=== PATIENT | female | born 1995 | race Caucasian/White ===

== ENCOUNTER 2019-03-22 22:09 | Emergency (ER) | payer SELFPAY ==
--- NOTE | 2019-03-22 22:46 | ER ---
Nurse's Notes [facility] Name: Mike Hernandez Age: 23 yrs Sex: Female : 1995 Arrival Date: 03/22/2019 Time: 22:12 Bed Waiting Private MD: Diagnosis: Assessment: 03/22 22:32 Reassessment: called but not around. mg2 22:44 Reassessment: called but still no answer. mg2 ED Course: 22:12 Patient arrived in ED. jg7 Administered Medications: No medications were administered Outcome: 22:44 Patient left the ED. mg2 Signatures: Hunter Jacobo RN RN mg2 Ginette Evangelista
== END 2019-03-22 22:44 | disposition left against medical advice (07) ==
LOC: ER 22:09
DX: Z53.21 Procedure and treatment not carried out due to patient leaving prior to being seen by health care provider (principal)

== ENCOUNTER 2021-10-08 19:48 | Emergency (ER) | payer SELFPAY ==
--- NOTE | 2021-10-08 22:03 | RAD REPORT ---
EXAM DESCRIPTION: US - 1St Trimest Single 1St Fetus - 10/08/2021 9:44 pm CLINICAL HISTORY: fall, pelvic pain COMPARISON: No comparisons FINDINGS: Gestational sac identified with mean sac diameter measuring 1.7 cm. This is consistent wit h 6 week 4 day. The uterus measures 8.9 cm. The right ovary measures 2.3 x 1.9 x 2 cm with volume of 4.6 cc. Vascular flow is present in the right ovary. The left ovary was not visualized. IMPRESSION: 1. Gestational sac identified with mean sac diameter consistent with 6 week 4 day with t he LUIS FELIPE of 05/30/2022. No pole or heart tones identified likely due to early dates 2. Right ovarian blood flow identified. The left ovary was not visualized.
--- NOTE | 2021-10-08 22:07 | ER ---
Nurse's Notes [facility] Name: Mike Hernandez Age: 25 yrs Sex: Female : 1995 Arrival Date: 10/08/2021 Time: 20:04 Bed 9 Private MD: Diagnosis: Fall (on) (from) other stairs and steps;Pelvic and perineal pain Presentation: 10/08 20:07 Chief complaint: Patient states: fell down 5-6 stairs at 5pm today. Is 4 weeks [facility] and wants to get checked after the fall. Care prior to arrival: None. Mechanism of Injury: Fall approximately 6 feet. Trauma event details: Injury occurred in the [facility], Injury occurred: at home. Injury occurred: October 08, 2021 Injury occurred at: 17:00. 20:07 Acuity: KENYA 4 [facility] 20:07 Method Of Arrival: Ambulatory [facility] 22:26 Coronavirus screen: Vaccine status: Patient reports being unvaccinated. Ebola Screen: [facility] No symptoms or risks identified at this time. Initial Sepsis Screen: Does the patient meet any 2 criteria? No. Patient's initial sepsis screen is negative. Does the patient have a suspected source of infection? No. Patient's initial sepsis screen is negative. Risk Assessment: Do you want to hurt yourself or someone else? Patient reports no desire to harm self or others. Onset of symptoms was October 08, 2021. Triage Assessment: 20:18 General: See trauma assessment. [facility] MEDICATION COORDINATOR: 20:16 LMP 08/28/2021 [facility] Trauma Activation: Not Applicable Physician: ED Physician; Name: ; Notified At: ; Arrived At: Physician: General Surgeon; Name: ; Notified At: ; Arrived At: Physician: Radiology; Name: ; Notified At: ; Arrived At: Physician: Respiratory; Name: ; Notified At: ; Arrived At: Physician: Lab; Name: ; Notified At: ; Arrived At: Historical: - Allergies: 20:14 ACYCLOVIR AND DERIVATIVES; 3 - Home Meds: 20:14 None [Active]; 3 - PMHx: 20:14 Endometriosis; 3 - Immunization history: Last tetanus immunization: - up to date. - Social history:: Smoking status: Patient denies any tobacco usage or history of. - Social history: Denies using street drugs, tobacco products, alcohol. Screenin:24 Abuse screen: Denies threats or abuse. Denies injuries from another. Nutritional eh3 screening: No deficits noted. Tuberculosis screening: No symptoms or risk factors identified. Fall Risk None identified. Primary Survey: 20:14 NO uncontrolled hemorrhage observed. Breathing/Chest: Spontaneous respiratory effort, eh3 equal unlabored respirations, breath sounds clear bilaterally, regular pattern, symmetrical chest rise and fall. Circulation: No external hemorrhage present. Regular and strong central pulse, skin warm/dry/normal color. Disability Pupils are equal, round, reactive to light and accommodation. Client is alert. 22:26 Exposure/Environment: There is no evidence of uncontrolled external bleeding. No eh3 obvious injuries are noted at this time. Reassessment Breathing: Respiratory effort Spontaneous Unlabored Respiratory pattern Regular. Reassessment Alertness and Airway: Awake and alert. The airway is patent. Circulation: No external hemorrhage noted. Regular and strong central pulse, skin warm/dry/normal color. Assessment: 20:07 General: Appears in no apparent distress. comfortable, Behavior is calm, cooperative, eh3 appropriate for age. Pain: Complains of pain in suprapubic area and right upper quadrant Pain does not radiate. Pain currently is 7 out of 10 on a pain scale. Quality of pain is described as dull, throbbing, Pain began 3 hours ago. Is continuous. Neuro: Level of Consciousness is awake, alert, obeys commands, Oriented to person, place, time, situation. Cardiovascular: Capillary refill < 3 seconds Patient's skin is warm and dry. Respiratory: Airway is patent Respiratory effort is even, unlabored. GI: No signs and/or symptoms were reported involving the gastrointestinal system. : No signs and/or symptoms were reported regarding the genitourinary system. Derm: No signs and/or symptoms reported regarding the dermatologic system. Musculoskeletal: Circulation, motion, and sensation intact. Range of motion: intact in all extremities. Vital Signs: 20:16 BP 121 / 82; Pulse 108; Resp 18; Temp 99.3(O); Pulse Ox 100% on R/A; Weight 79.38 kg; eh3 Height 5 ft. 0 in. (152.40 cm); Pain 7/10; 20:16 Body Mass Index 34.18 (79.38 kg, 152.40 cm) eh3 Cristin Coma Score: 22:25 Eye Response: spontaneous(4). Verbal Response: oriented(5). Motor Response: obeys eh3 commands(6). Total: 15. Trauma Score (Adult): 22:25 Eye Response: spontaneous(1); Verbal Response: oriented(1); Motor Response: obeys eh3 commands(2); Systolic BP: > 89 mm Hg(4); Respiratory Rate: 10 to 29 per min(4); Cristin Score: 15; Trauma Score: 12 ED Course: 20:04 Patient arrived in ED. bp1 20:11 Triage completed. eh3 20:16 Arm band placed on right wrist. eh3 20:17 Roberto Rojo PA is PHCP. [facility] 20:17 Herson Veliz MD is Attending Physician. [facility] 20:20 Orville Jacobson, RN is Primary Nurse. as6 21:46 1st Trimest Single 1st Fetus In Process Unspecified. EDMS 22:24 Patient has correct armband on for positive identification. Bed in low position. Call eh3 light in reach. Side rails up X2. 22:24 No provider procedures requiring assistance completed. Patient did not have IV access eh3 during this emergency room visit. 22:25 Patient maintains SpO2 saturation greater than 95% on room air. eh3 22:27 Thermoregulation: warm blanket given to patient. eh3 Administered Medications: No medications were administered Medication: 22:27 VIS not applicable for this client. eh3 Intake: 22:25 PO: 0ml; Total: 0ml. eh3 Outcome: 22:05 Discharge ordered by . [facility] 22:24 Discharged to home ambulatory. eh3 22:24 Condition: stable 22:24 Discharge instructions given to patient, Instructed on discharge instructions, follow up and referral plans. Demonstrated understanding of instructions, follow-up care. 22:25 Patient's length of stay was not longer than 2 hours. eh3 22:27 Patient left the ED. eh3 Signatures: Dispatcher [employer] EDMS Roberto Rojo PA PA [facility] Rose Caputo bp1 Orville Jacobson, RN RN as6 Malu Lozoya RN RN eh3
--- NOTE | 2021-10-08 22:07 | EDPHYS ---
Physician Documentation [facility] Name: Mike Hernandez Age: 25 yrs Sex: Female : 1995 Arrival Date: 10/08/2021 Time: 20:04 Bed 9 Private MD: ED Physician Herson Veliz HPI: 10/08 20:20 This 25 yrs old Female presents to ER via Ambulatory with complaints of Fall Injury. jmm 20:20 Details of fall: The patient fell from an upright position, while walking. Onset: The jmm symptoms/episode began/occurred acutely, just prior to arrival. Associated injuries: The patient sustained injury to the abdomen. The patient has not experienced similar symptoms in the past. Patient states being approximately 4 weeks . Patient states she slept down approximately 4-6 stairs steps. Denies hitting her head. Denies back pain. Complains of some mild right lower extremity pain as well. Also complains of some pelvic lower abdominal cramping. Denies vaginal bleeding. UI ARCHITECT: 20:16 LMP 08/28/2021 eh3 Historical: - Allergies: 20:14 ACYCLOVIR AND DERIVATIVES; eh3 - Home Meds: 20:14 None [Active]; eh3 - PMHx: 20:14 Endometriosis; eh3 - Immunization history: Last tetanus immunization: - up to date. - Social history:: Smoking status: Patient denies any tobacco usage or history of. - Social history: Denies using street drugs, tobacco products, alcohol. ROS: 20:20 Constitutional: Negative for fever, chills, and weight loss, Cardiovascular: Negative jmm for chest pain, palpitations, and edema, Respiratory: Negative for shortness of breath, cough, wheezing, and pleuritic chest pain. 20:20 Abdomen/GI: Positive for abdominal pain. 20:20 MS/extremity: Positive for pain. 20:20 All other systems are negative. Exam: 20:20 Constitutional: This is a well developed, well nourished patient who is awake, alert, jmm and in no acute distress. Head/Face: atraumatic. Eyes: EOMI, no conjunctival erythema appreciated ENT: Moist Mucus Membranes Neck: Trachea midline, Supple Chest/axilla: Normal chest wall appearance and motion. Cardiovascular: Regular rate and rhythm. No edema appreciated Respiratory: Normal respirations, no respiratory distress appreciated Abdomen/GI: Non distended Back: Normal ROM 20:20 Musculoskeletal/extremity: Full range of motion appreciated to the right lower leg. Right knee. Compartments are soft, full dorsalis pedis pulse, neurovascular intact. No bony tenderness. 20:20 Skin: Mild ecchymosis noted to the right lower leg. 20:20 Neuro: Orientation: is normal, Mentation: is normal, Memory: is normal. 20:20 Psych: Behavior/mood is pleasant, cooperative. Vital Signs: 20:16 BP 121 / 82; Pulse 108; Resp 18; Temp 99.3(O); Pulse Ox 100% on R/A; Weight 79.38 kg; eh3 Height 5 ft. 0 in. (152.40 cm); Pain 7/10; 20:16 Body Mass Index 34.18 (79.38 kg, 152.40 cm) eh3 Elgin Coma Score: 22:25 Eye Response: spontaneous(4). Verbal Response: oriented(5). Motor Response: obeys eh3 commands(6). Total: 15. Trauma Score (Adult): 22:25 Eye Response: spontaneous(1); Verbal Response: oriented(1); Motor Response: obeys eh3 commands(2); Systolic BP: > 89 mm Hg(4); Respiratory Rate: 10 to 29 per min(4); Cristin Score: 15; Trauma Score: 12 MDM: 20:20 Patient medically screened. [facility] 22:05 Data reviewed: vital signs, nurses notes. Counseling: I had a detailed discussion with mitch the patient and/or guardian regarding: the historical points, exam findings, and any diagnostic results supporting the discharge/admit diagnosis, radiology results, the need for outpatient follow up, to return to the emergency department if symptoms worsen or persist or if there are any questions or concerns that arise at home. 10/08 20:33 Order name: 1st Trimest Single 1st Fetus; Complete Time: 22:05 [facility] Administered Medications: No medications were administered Disposition Summary: 10/08/21 22:05 Discharge Ordered Location: Home [facility] Condition: Stable [facility] Diagnosis - Fall (on) (from) other stairs and steps jmm - Pelvic and perineal pain [facility] Followup: [facility] - With: Private Physician - When: 2 - 3 days - Reason: Recheck today's complaints, Continuance of care, Re-evaluation by your physician Discharge Instructions: - Discharge Summary Sheet jmm - Pelvic Pain, Female jmm - First Trimester of mitch Forms: - Medication Reconciliation Form jmm - Thank You Letter jmm - Antibiotic Education jmm - Prescription Opioid Use mitch Signatures: Dispatcher [employer] Herson Mendoza MD MD cha Mickail, Joel, PA PA jmm Hall, Erin, RN RN eh3
[2021-10-08 23:51] VITALS: BP 121/82; TEMP 99.3; O2SAT 100
== END 2021-10-08 22:27 | disposition home or self-care (01) ==
LOC: ER 19:48
DX: O26.891 Other specified pregnancy related conditions, first trimester (principal); Z3A.01 Less than 8 weeks gestation of pregnancy; W10.8XXA Fall (on) (from) other stairs and steps, initial encounter; Z88.8 Allergy status to other drugs, medicaments and biological substances
CPT/HCPCS: 76801

== ENCOUNTER 2022-01-08 11:43 | Emergency (ER) | payer OTHER ==
--- NOTE | 2022-01-08 14:10 | RAD REPORT ---
EXAM DESCRIPTION: US - Extrem Venous W Compress Jorge - 01/08/2022 1:56 pm CLINICAL HISTORY: pain, covid +, , recent travel COMPARISON: No comparisons TECHNIQUE: Real-time sonographic evaluation of the lower extremity deep venous systems was performed using color Doppler, grayscale, and compression. FINDINGS: Bilateral lower extremities. Normal compressibility, flow augmentation, phasic flow and spontaneous flow is identified in both the left and right lower extremity deep venous systems. No intraluminal filling defects seen. IMPRESSION: No DVT in either lower extremity.
--- NOTE | 2022-01-08 14:31 | EDPHYS ---
Physician Documentation [facility] Name: Mike Hernandez Age: 26 yrs Sex: Female : 1995 Arrival Date: 01/08/2022 Time: 11:45 Bed 9 Private MD: ED Physician Emma Manley HPI: 01/08 13:44 This 26 yrs old Female presents to ER via Ambulatory with complaints of Cough - covid+, snw 18 wks preg. 13:44 The patient or guardian reports cough, flu symptoms, low-grade fever, myalgias, snw congestion. Onset: The symptoms/episode began/occurred gradually, 3 day(s) ago, did home covid test - it was positive. Severity of symptoms: At their worst the symptoms were moderate. Associated signs and symptoms: Pertinent positives: rhinorrhea, sore throat, leg pain. The patient has not experienced similar symptoms in the past. seeing Dr. Ness for IUP. Historical: - Allergies: 12:15 ACYCLOVIR AND DERIVATIVES; ll1 - PMHx: 12:15 Endometriosis; ll1 - PSHx: 12:15 Appendectomy; foot SX; ll1 - Immunization history:: Client reports receiving the 2nd dose of the Covid vaccine. - Social history:: Smoking status: Patient denies any tobacco usage or history of. ROS: 13:43 Constitutional: Negative for fever, chills, and weight loss, Eyes: Negative for injury, snw pain, redness, and discharge, ENT: Negative for injury, pain, and discharge, Neck: Negative for injury, pain, and swelling, Cardiovascular: Negative for chest pain, palpitations, and edema. 13:43 Abdomen/GI: Negative for abdominal pain, nausea, vomiting, diarrhea, and constipation, Back: Negative for injury and pain, : Negative for injury, bleeding, discharge, and swelling. 13:43 Skin: Negative for injury, rash, and discoloration, Neuro: Negative for headache, weakness, numbness, tingling, and seizure, Psych: Negative for depression, anxiety, suicide ideation, homicidal ideation, and hallucinations. 13:43 Respiratory: Positive for cough, shortness of breath. 13:43 MS/extremity: Positive for pain, intermittently to left leg. Exam: 13:42 Constitutional: This is a well developed, well nourished patient who is awake, alert, snw and in no acute distress. Head/Face: Normocephalic, atraumatic. Eyes: Pupils equal round and reactive to light, extra-ocular motions intact. Lids and lashes normal. Conjunctiva and sclera are non-icteric and not injected. Cornea within normal limits. Periorbital areas with no swelling, redness, or edema. ENT: Nares patent. No nasal discharge, no septal abnormalities noted. Tympanic membranes are normal and external auditory canals are clear. Oropharynx with no redness, swelling, or masses, exudates, or evidence of obstruction, uvula midline. Mucous membranes moist. Neck: Trachea midline, no thyromegaly or masses palpated, and no cervical lymphadenopathy. Supple, full range of motion without nuchal rigidity, or vertebral point tenderness. No Meningismus. Chest/axilla: Normal chest wall appearance and motion. Nontender with no deformity. No lesions are appreciated. Cardiovascular: Regular rate and rhythm with a normal S1 and S2. No gallops, murmurs, or rubs. Normal PMI, no JVD. No pulse deficits. 13:42 Abdomen/GI: Soft, non-tender, with normal bowel sounds. No distension or tympany. No guarding or rebound. No evidence of tenderness throughout. Back: No spinal tenderness. No costovertebral tenderness. Full range of motion. Skin: Warm, dry with normal turgor. Normal color with no rashes, no lesions, and no evidence of cellulitis. MS/ Extremity: Pulses equal, no cyanosis. Neurovascular intact. Full, normal range of motion. Neuro: Awake and alert, GCS 15, oriented to person, place, time, and situation. Cranial nerves II-XII grossly intact. Motor strength 5/5 in all extremities. Sensory grossly intact. Cerebellar exam normal. Normal gait. Psych: Awake, alert, with orientation to person, place and time. Behavior, mood, and affect are within normal limits. 13:42 Respiratory: the patient does not display signs of respiratory distress, Respirations: normal, Breath sounds: are clear throughout. Vital Signs: 12:16 BP 140 / 81; Pulse 89; Resp 18; Temp 97.1; Pulse Ox 100% ; Weight 81.65 kg; Height 5 ll1 ft. 2 in. (157.48 cm); Pain 7/10; 12:16 Body Mass Index 32.92 (81.65 kg, 157.48 cm) ll1 MDM: 12:55 Patient medically screened. snw 14:32 Data reviewed: vital signs, nurses notes. Data interpreted: Pulse oximetry: on room air snw is 100 %. Interpretation: normal. Counseling: I had a detailed discussion with the patient and/or guardian regarding: the historical points, exam findings, and any diagnostic results supporting the discharge/admit diagnosis, the presence of at least one elevated blood pressure reading (>120/80) during this emergency department visit, radiology results, the need for outpatient follow up, to return to the emergency department if symptoms worsen or persist or if there are any questions or concerns that arise at home. Special discussion: I have referred the patient to see his PCP for further evaluation of high blood pressure. Based on the history and exam findings, there is no indication for further emergent testing or inpatient evaluation. I discussed with the patient/guardian the need to see the OB Gyne specialist for further evaluation of the symptoms. I discussed with the patient/guardian the need to see the primary care provider for further evaluation of the symptoms. 01/08 13:13 Order name: US Extremity Venous W Compression Jorge; Complete Time: 14:13 snw Administered Medications: 14:46 Drug: Aspirin 81 mg Route: PO; iw 15:10 Follow up: Response: No adverse reaction iw 14:46 Drug: Pepcid (famotidine) 20 mg Route: PO; iw 15:10 Follow up: Response: No adverse reaction iw Disposition Summary: 01/08/22 14:31 Discharge Ordered Location: Home snw Condition: Stable snw Diagnosis - SARS-associated coronavirus as the cause of diseases classified elsewhere snw - state, incidental snw Followup: snw - With: Emergency Department - When: As needed - Reason: Worsening of condition Followup: snw - With: Private Physician - When: 2 - 3 days - Reason: Recheck today's complaints, Continuance of care, Re-evaluation by your physician Discharge Instructions: - Discharge Summary Sheet snw - Aspirin and Your Heart snw - COVID-19 snw Forms: - Medication Reconciliation Form snw - Thank You Letter snw - Antibiotic Education snw - Prescription Opioid Use snw Prescriptions: - Pepcid 20 mg Oral Tablet - take 1 tablet by ORAL route once daily; 20 tablet; Refills: 0, Product snw Selection Permitted Signatures: Dispatcher [employer] Melissa Lopez, LITA-C NATURAL RESOURCES MANAGER-Marelyw Leann Lui, RN RN iw Daisha Roman RN RN ll1
--- NOTE | 2022-01-08 14:31 | ER ---
Nurse's Notes [facility] Name: Mike Hernandez Age: 26 yrs Sex: Female : 1995 Arrival Date: 01/08/2022 Time: 11:45 Bed 9 Private MD: Diagnosis: SARS-associated coronavirus as the cause of diseases classified elsewhere; state, incidental Presentation: 01/08 12:16 Chief complaint: Patient states: Thursday morning started having sinus ll1 congestion/pressure, PARRA. At home covid test Positive. 18.5 weeks . G1, P0. Pelvic cramping started late last night, Dr. Ness told her to come get checked. No fevers. Coronavirus screen: Vaccine status: Patient reports receiving the 2nd dose of the covid vaccine. Client denies travel out of the [place] in the last 14 days. congestion, cough unrelated to allergies, fatigue, headache, nausea, Client presents with at least one sign or symptom that may indicate coronavirus-19. Standard/surgical mask placed on the client. Ebola Screen: Patient denies travel to an Ebola-affected area in the 21 days before illness onset. Initial Sepsis Screen: Does the patient meet any 2 criteria? No. Patient's initial sepsis screen is negative. Does the patient have a suspected source of infection? Yes: Productive cough/pneumonia. Risk Assessment: Do you want to hurt yourself or someone else? Patient reports no desire to harm self or others. Onset of symptoms was January 05, 2022. 12:16 Method Of Arrival: Ambulatory ll1 12:16 Acuity: KENYA 3 ll1 Triage Assessment: 12:20 General: Appears ill, Behavior is cooperative, appropriate for age. Pain: Complains of ll1 pain in head Pain currently is 7 out of 10 on a pain scale. Quality of pain is described as aching. EENT: Reports nasal congestion. Neuro: Reports headache. Respiratory: Reports cough that is. GI: Reports nausea. Historical: - Allergies: 12:15 ACYCLOVIR AND DERIVATIVES; ll1 - PMHx: 12:15 Endometriosis; ll1 - PSHx: 12:15 Appendectomy; foot SX; ll1 - Immunization history:: Client reports receiving the 2nd dose of the Covid vaccine. - Social history:: Smoking status: Patient denies any tobacco usage or history of. Vital Signs: 12:16 BP 140 / 81; Pulse 89; Resp 18; Temp 97.1; Pulse Ox 100% ; Weight 81.65 kg; Height 5 ll1 ft. 2 in. (157.48 cm); Pain 7/10; 12:16 Body Mass Index 32.92 (81.65 kg, 157.48 cm) ll1 ED Course: 11:45 Patient arrived in ED. as 12:15 Arm band placed on. ll1 12:20 Triage completed. ll1 12:51 Melissa Mccarty FNP-C is PHCP. snw 12:51 Emma Manley MD is Attending Physician. snw 12:52 Melissa Mccarty FNP-C is PHCP. snw 13:58 US Extremity Venous W Compression Jorge In Process Unspecified. EDMS 14:10 Leann Lui, RN is Primary Nurse. iw Administered Medications: 14:46 Drug: Aspirin 81 mg Route: PO; iw 15:10 Follow up: Response: No adverse reaction iw 14:46 Drug: Pepcid (famotidine) 20 mg Route: PO; iw 15:10 Follow up: Response: No adverse reaction iw Outcome: 14:31 Discharge ordered by . snw 14:46 Patient left the ED. iw Signatures: Dispatcher [employer] EDMS Melissa Mccarty FNP-C FNP-Marycarmen Norman as Leann Lui, RN RN iw Daisha Roman RN RN ll1 Corrections: (The following items were deleted from the chart) 12:20 12:16 Pulse 89bpm; Resp 18bpm; Pulse Ox 100%; Temp 97.1F; 81.65 kg; Height 5 ft. 2 in.; ll1 BMI: 32.9; Pain 7/10; ll1
[2022-01-08] MEDS ORDERED: FAMOTIDINE 20 MG TAB ONE (14:35)
[2022-01-08] MEDS ORDERED: ASPIRIN 81 MG CHEWABLE TABLET ONE (14:35)
[2022-01-08 14:50] VITALS: BP 140/81; TEMP 97.1; O2SAT 100
== END 2022-01-08 14:46 | disposition home or self-care (01) ==
LOC: ER 11:43
DX: U07.1 COVID-19 (principal); Z33.1 Pregnant state, incidental; Z88.8 Allergy status to other drugs, medicaments and biological substances
CPT/HCPCS: 93970; 99283

== ENCOUNTER 2023-01-13 16:53 | Emergency (ER) | payer OTHER ==
[2023-01-13] MEDS ORDERED: KETOROLAC 30 MG/ML INJ ONE (17:32)
--- NOTE | 2023-01-13 18:16 | RAD REPORT ---
EXAM DESCRIPTION: RAD -Hand Left 3 View - 01/13/2023 5:58 pm CLINICAL HISTORY: Left hand pain status post injury FINDINGS: No fracture or dislocation is seen.
--- OUTSIDE RECORDS SUMMARY | 2023-01-13 18:17 | XMS REPORT | Continuity of Care Document ---
:1995 Author Organization [facility] t Address [address] [facility] [address] [place] [address] Care Team Providers Name Role Phone DAVIS HAMM JR Primary Care Physician Unavailable ARDEN WHITEHEAD Attending Clinician Unavailable Aletha Zarate PA-C Attending Clinician ALETHA ZARATE Attending Clinician Unavailable Nurse, [facility] Attending Clinician Unavailable Arden Whitehead MD Attending Clinician Bart Braun MD Attending Clinician Pankaj Bhatia MD Attending Clinician Gregg Carrillo CRNA Attending Clinician Doctor Unassigned, [place] Attending Clinician Unavailable Pob, [facility] Main Attending Clinician Unavailable LEAH GONZALEZ Attending Clinician Unavailable LEAH GONZALEZ Attending Clinician Unavailable 2, [facility] Attending Clinician Unavailable 1, [facility] Room Attending Clinician Unavailable John Paul Lanier MD Attending Clinician [phone] JOHN PAUL LANIER Attending Clinician Unavailable ARDEN WHITEHEAD Admitting Clinician Unavailable Arden Whitehead MD Admitting Clinician LEAH GONZALEZ Admitting Clinician Unavailable Payers Payer Name Policy Type Policy Number Effective Date Expiration Date Sherlyn ponce [employer] [place] [id number] 2022 00:00:00 WOMEN Problems Condition Condition Condition Status Onset Resolution Last Treating Co mments Source Name Details Category Date Date Treatment Clinician Date Liveborn Liveborn Disease Active Unive rs infant, of , of 4-19 it y of marques marques 00:00: Chaim murray , , 00 Me dical born in born in [facility] by vaginal by vaginal delivery delivery 39 weeks 39 weeks Disease Active Unive rs gestation gestation 4-17 ity of of of 00:: [place] 00 [facility] Morbid Morbid Disease Active Univers obesity obesity 4-06 ity of with body with body 00:00: Chaim murray mass index mass index 00 Me dical of [facility] 40.0-49.9 40.0-49.9 Pelvic Pelvic Disease Active Univers pain pain 3-21 ity of during during 00:: [place] , , 00 Me dical antepartum antepartum Br anch Mild Mild Disease Active Univers pre-eclamp pre-eclamp 2-20 it y of kevin in kevin in 00:: [place] third third 00 Medical trimester trimester Bran ch Severe Severe Disease Active Univers pre-eclamp pre-eclamp 2-20 it y of kevin in kevin in 00:: [place] third third 00 Medical trimester trimester Bran ch BMI BMI Disease Active Univers 40.0-44.9, 40.0-44.9, 2-20 it y of adult adult 00:00: [place] [facility] Branch Obesity in Obesity in Disease Active U nivers 2-20 ity of 00:: [place] [facility] High-risk High-risk Disease Active Uni vers 2-20 ity of in third in third 00:: [place] trimester trimester 00 [facility] Elevated Elevated Disease Active Unive rs BP without BP without 2-20 it y of diagnosis diagnosis 00:00: Chaim murray of 00 Medical hypertensi hypertensi Br anch on on Excessive Excessive Disease Active Uni vers weight weight 2-20 ity of gain gain 00:: [place] during during 00 Medical , , Br anch antepartum antepartum Allergies, Adverse Reactions, Alerts Allergy Allergy Status Severity Reaction(s) Onset Inactive Treating Comm ents Source Name Type Date Date Clinician ACYCLOVI DRUG Active Hives Univers R INGREDI 3-07 ity of 00:00: [place] 00 Medical Branch ADHESIVE DRUG Active Hives Univers TAPE-DAVE 3-07 ity of ICONES 00:00: [place] 00 Medical Branch Acyclovi Propensi Active Hives Univer s r ty to 3-07 ity of adverse 00:00: [place] reaction 00 Medical s Branch Adhesive Propensi Active Hives Univer s Tape-Dave ty to 3-07 ity of icones adverse 00:00: [place] reaction [facility] s Branch Social History Social Habit Start Date Stop Date Quantity Comments Source ASSERTION 2021-09-10 [facility] 00:00:00 [facility] Exposure to 2022-06-23 2022-07-03 Not sure [facility] SARS-CoV-2 00:00:00 20:41:00 [facility] (event) [place] Alcohol intake 2022-06-04 2022-06-04 Ex-drinker [facility] 00:00:00 00:00:00 (finding) [facility] Tobacco use and 2022-05-27 2022-05-27 Smokeless tobacco Un iversity of exposure 00:00:00 00:00:00 non-user [facility] Sex Ass[birth year] At [birth year] Universit y of 00:00:00 00:00:00 [facility] Smoking Status Start Date Stop Date Source Tobacco smoking consumption [facility] Never smoked tobacco [facility] Medications Ordered Filled Start Stop Current Ordering Indication Dosage Frequency Signature Comments Components Source Medication Medication Date Date Medication? Clinician (SIG) Name Name aspirin 81 2022- No Take by Uni vers mg Cap 05-30 mouth. ity of 10:10: 00:00 [place] 08 : Medical Branch PNV 2022- No Take by Univers 102-IRON-FO 05-30- mouth. ity o f LATE-DHA 10:10: 00:00 [place] ORAL 08 :00 Medical Branch cyclobenzap Yes [id number] 10mg Take 1 Univers rine 10 mg 4-21 tablet by ity of tablet 00:00: mouth 3 [place] 00 (three) Medical times Branch daily as needed for Muscle Spasms. 2022-0 Yes [id number] 1{tbl} Take 1 U nivers vitamin 4-21 tablet by ity of w/FA tablet 00:00: mouth in [place] 00 the Medical morning. Branch docusate 0 Yes [id number] 200mg Take 2 Un thai 100 mg 4-21 capsules ity of capsule 00:00: by mouth [place] 00 once daily Medical as needed Branch for Constipati on. ferrous 0 Yes [id number] 325mg Take 1 Uni vers sulfate 325 4-21 tablet by ity of mg (65 mg 00:00: mouth in [facility] s iron) 00 the Medical tablet morning Branch and 1 tablet in the evening. ibuprofen 0 Yes [id number] 600mg Take 1 U nivers 600 mg 4-21 tablet by ity of tablet 00:00: mouth [place] 00 every 6 Medical (six) Branch hours as needed (Pain). Take with food or milk. cyclobenzap 0 Yes [id number] 10mg Take 1 Univers rine 10 mg 4-21 tablet by ity of tablet 00:00: mouth 3 [place] 00 (three) Medical times Branch daily as needed for Muscle Spasms. 0 Yes [id number] 1{tbl} Take 1 U nivers vitamin 4-21 tablet by ity of w/FA tablet 00:00: mouth in [place] 00 the Medical morning. Branch docusate 0 Yes [id number] 200mg Take 2 Un thai 100 mg 4-21 capsules ity of capsule 00:00: by mouth [place] 00 once daily Medical as needed Branch for Constipati on. ferrous 2022-0 Yes [id number] 325mg Take 1 Uni vers sulfate 325 4-21 tablet by ity of mg (65 mg 00:00: mouth in [facility] s iron) 00 the Medical tablet morning Branch and 1 tablet in the evening. ibuprofen 2022-0 Yes [id number] 600mg Take 1 U nivers 600 mg 4-21 tablet by ity of tablet 00:00: mouth [place] 00 every 6 Medical (six) Branch hours as needed (Pain). Take with food or milk. cyclobenzap 2023-0 Yes [id number] 10mg Take 1 Univers rine 10 mg 4-21 tablet by ity of tablet 00:00: mouth 3 [place] 00 (three) Medical times Branch daily as needed for Muscle Spasms. 2022-0 Yes [id number] 1{tbl} Take 1 U nivers vitamin 4-21 tablet by ity of w/FA tablet 00:00: mouth in [place] 00 the Medical morning. Branch docusate 0 Yes [id number] 200mg Take 2 Un thai 100 mg 4-21 capsules ity of capsule 00:00: by mouth [place] 00 once daily Medical as needed Branch for Constipati on. ferrous 2022-0 Yes [id number] 325mg Take 1 Uni vers sulfate 325 4-21 tablet by ity of mg (65 mg 00:00: mouth in s iron) 00 the Medical tablet morning Branch and 1 tablet in the evening. ibuprofen 2022-0 Yes [id number] 600mg Take 1 U nivers 600 mg 4-21 tablet by ity of tablet 00:00: mouth [place] 00 every 6 Medical (six) Branch hours as needed (Pain). Take with food or milk. cyclobenzap Yes [id number] 10mg Take 1 Univers rine 10 mg 4-21 tablet by ity of tablet 00:00: mouth 3 [place] 00 (three) Medical times Branch daily as needed for Muscle Spasms. 0 Yes [id number] 1{tbl} Take 1 U nivers vitamin 4-21 tablet by ity of w/FA tablet 00:00: mouth in [place] 00 the Medical morning. Branch docusate 0 Yes [id number] 200mg Take 2 Un thai 100 mg 4-21 capsules ity of capsule 00:00: by mouth [place] 00 once daily Medical as needed Branch for Constipati on. ferrous 2022-0 Yes [id number] 325mg Take 1 Uni vers sulfate 325 4-21 tablet by ity of mg (65 mg 00:00: [place] iron) 00 the Medical tablet morning Branch and 1 tablet in the evening. ibuprofen 2022-0 Yes [id number] 600mg Take 1 U nivers 600 mg 4-21 tablet by ity of tablet 00:00: mouth [place] 00 every 6 Medical (six) Branch hours as needed (Pain). Take with food or milk. cyclobenzap 2022-0 Yes [id number] 10mg Take 1 Univers rine 10 mg 4-21 tablet by ity of tablet 00:00: mouth 3 [place] 00 (three) Medical times Branch daily as needed for Muscle Spasms. 2022-0 Yes [id number] 1{tbl} Take 1 U nivers vitamin 4-21 tablet by ity of w/FA tablet 00:00: mouth in [place] 00 the Medical morning. Branch docusate 2022-0 Yes [id number] 200mg Take 2 Un thai 100 mg 4-21 capsules ity of capsule 00:00: by mouth [place] 00 once daily Medical as needed Branch for Constipati on. ferrous 2022-0 Yes [id number] 325mg Take 1 Uni vers sulfate 325 4-21 tablet by ity of mg (65 mg 00:00: [place] iron) 00 the Medical tablet morning Branch and 1 tablet in the evening. ibuprofen 2022-0 Yes [id number] 600mg Take 1 U nivers 600 mg 4-21 tablet by ity of tablet 00:00: mouth [place] 00 every 6 Medical (six) Branch hours as needed (Pain). Take with food or milk. SUMAtriptan 2022-0 2022- No 6mg 6 mg, Univ ers (IMITREX) 4-20 04-20 Subcutaneo ity of injection 6 19:45: 19:03 us, ONCE, [place] mg 00 :00 1 dose, On Medical [place] Branch 05/29/22 at 1445, Routine cyclobenzap 2022-0 Yes 10mg 10 mg, Univ ers rine 4-20 Oral, TID, ity of (FLEXERIL) 19:00: First dose [place] tablet 10 00 on [facility] Medical mg 05/29/22 at Branch 1400, Until Discontinu ed, Routine D5W 0.45% 2022-0 Yes 1000mL at 75 Unive rs NaCl 4-20 mL/hr, ity of (1/2NS) IV 05:15: 1,000 mL, [place] infusion 00 IV Medical 1,000 mL Infusion, Branch CONTINUOUS , Starting on [place] 05/29/22 at 0015, Until Discontinu ed, Routine magnesium 2022-0 Yes 2g/h 2 g/hr (50 Un thai sulfate in 4-20 mL/hr), IV ity of water for 05:15: Infusion, Jose F as injection 00 CONTINUOUS Medi elsa 20 gram/500 , Starting Br anch mL (4 %) IV on [place] infusion 05/29/22 at 0015, Until Discontinu ed, JEISON calcium 2022-0 Yes 1000mg 1,000 mg, Uni vers gluconate 4-20 Slow IV ity of 100 mg/mL 03:24: Push, PRN Jose F as (10%) 47 - SEE Medical injection INSTRUCTIO Bran ch 1,000 mg NS, Starting on Thu05/28/22 at 2224, Until Discontinu ed, Routine, magnesium toxicity magnesium 2022-0 Yes 4g 32.48 mEq Uni vers sulfate 4 4-20 (4 g), ity of mEq/mL (50 03:24: Slow IV [place] %) 47 Push, PRN Medical injection - SEE Branch 32.48 mEq INSTRUCTIO NS, Starting on Thu05/28/22 at 2224, Until Discontinu ed, Routine, For seizure activity (patient not on magnesium sulfate) magnesium 2022-0 Yes 2g 16.24 mEq Uni vers sulfate 4 4-20 (2 g), ity of mEq/mL (50 03:24: Slow IV [place] %) 47 Push, PRN Medical injection - SEE Branch 16.24 mEq INSTRUCTIO NS, 2 doses, Starting on Thu05/28/22 at 2224, Until Discontinu ed, Routine, For seizure activity (patient already on magnesium sulfate) butalbital- 2022-0 Yes 1{tbl} 1 tablet, Univers acetaminoph 4-20 Oral, ity of en-caff 03:19: Q4HPRN, [place] (ESGIC) 24 Starting Medical 50-325-40 on Thu Branch mg tablet 1 05/28/22 at tablet 2219, Until Discontinu ed, Routine, Pain (scale 4-6) rho(D) 2022-0 Yes 300ug 300 mcg, Univer s immune 4-19 Intramuscu ity of globulin 17:09: lar, ONCE, Jose F as (RHOGAM) 28 For 1 Medical syringe 300 dose, Branch mcg Conditiona l, Routine HYDROcodone 2022-0 Yes 1{tbl} 1 tablet, Univers -acetaminop 4-19 Oral, ity of hen (NORCO 17:09: Q6HPRN, [place] 5) 5-325 mg 24 Starting Medi elsa tablet 1 on Thu Branch tablet 05/28/22 at 1209, Until Discontinu ed, Routine, Pain (scale 7-10) ibuprofen 2023-0 Yes 600mg 600 mg, Univ ers (IBU) 4- Oral, ity of tablet 600 17:09: Q6HPRN, [place] mg 24 Starting Medical on Thu Branch 05/28/22 at 1209, Until Discontinu ed, Routine, Pain (scale 4-6) acetaminoph 2023-0 Yes 650mg 650 mg, Un thai en - Oral, ity of (TYLENOL) 17:09: Q6HPRN, [place] tablet 650 24 Starting Medic al mg on Thu Branch 05/28/22 at 1209, Until Discontinu ed, Routine, Pain (scale 1-3) diphenhydrA 2023-0 Yes 25mg 25 mg, Univ ers MINE 05-28 Oral, ity of (BENADRYL) 17:09: Q6HPRN, [place] tablet 25 24 Starting Medica l mg on Thu Branch 05/28/22 at 1209, Until Discontinu ed, Routine, Sleep, Itching ondansetron 3-0 Yes 4mg 4 mg, Slow Univers (ZOFRAN 05-28 IV Push, ity of (PF)) 17:09: Q8HPRN, [place] injection 4 24 Starting Medi elsa mg on Thu Branch 05/28/22 at 1209, Until Discontinu ed, Routine, Nausea and Vomiting (N/V) simethicone 2023-0 Yes 160mg 160 mg, Un thai (GAS RELIEF 05-28 Oral, ity of (SIMETHICON 17:09: PC+HSPRN, [place] E)) 24 Starting Medical chewable on Thu Branch tablet 160 05/28/22 at mg 1209, Until Discontinu ed, Routine, Gas docusate 2023-0 Yes 200mg 200 mg, Unive rs (COLACE) 05-28 Oral, ity of capsule 200 17:09: QDAILYPRN, [place] mg 24 Starting Medical on Thu Branch 05/28/22 at 1209, Until Discontinu ed, Routine, Constipati on magnesium 2023-0 Yes 30mL 30 mL, Univer s hydroxide 05-28 Oral, ity of (MILK OF 17:09: QDAILYPRN, Jose F as MAGNESIA) 24 Starting Medica l 400 mg/5 mL on Thu Branch suspension 05/28/22 at 30 mL 1209, Until Discontinu ed, Routine, Constipati on benzocaine- Yes Topical, Un thai menthol 419 PRN, ity of (DERMOPLAST 17:09: Starting [place] ) 20-0.5 % 23 on Thu Medical topical 05/28/22 at Branch spray 1209, Until Discontinu ed, Routine, Perineum discomfort witch Jenni Yes Topical, Un thai (TUCKS) 50 4-19 Q4HPRN, ity of % topical 17:09: [place] pad 05 on Thu Medical 05/28/22 at Branch 1209, Until Discontinu ed, Routine, rectal/hem orrhoidal pain diphenoxyla 2022- No 1{tbl} 1 tablet, [facility] te-atropine 05-28 Oral, ity of (LOMOTIL) 15:56: 17:09 Q6HPRN, [place] 2.5-0.025 32 :05 Starting Medica l mg tablet 1 on Thu Branch tablet 05/28/22 at 1056, Until 05/28/22 at 1209, Routine, Surgery/Pr ocedure butalbital- 2022- No 2{tbl} 2 tablet, [facility] acetaminoph 05-28 Oral, ity of en-caff 15:01: 15:05 ONCE, 1 [place] (ESGIC) 00 :00 dose, On Medical 50-325-40 Wed Branch mg tablet 2 05/28/22 at tablet 1015, Routine aspirin 81 0 Yes Take by [place] [facility] ers mg Cap 05-28 mouth. ity of 12:06: [address] PNV Yes Take by [facility] 102-IRON-FO 05-28 mouth. ity of LATE-DHA 12:06: [place] ORAL 20 [facility] diphenhydrA 2022- No 25mg 25 mg, Uni vers MINE 05-28 Intravenou ity of (BENADRYL) 09:35: 09:42 s, ONCE, 1 [place] injection 00 :00 dose, On Medica l 25 mg Wed Branch 4/19/23 at 0445, JEISON fentaNYL-ro 2022- No Epidural, Univers pivacaine 2 05-28 ONCE INTRA i ty of mcg/mL-0.1 02:06: 18:55 PROCEDURE, [place] % (PF) in 00 :46 Starting Medica l NS 200 mL on [facility] epidural 05/27/22 at infusion 2105, RTU Until Discontinu ed, Routine, Intra-op fentaNYL-ro 2022- No Epidural, Univers pivacaine 2 05-28 CONTINUOUS i ty of mcg/mL-0.1 02:06: 18:55 PRN, [place] % (PF) in 00 :46 Starting Medica l NS 200 mL on [facility] epidural 05/27/22 at infusion 2105, RTU Until Discontinu ed, Routine, Intra-op lidocaine-e 2022- No Epidural, Univers pinephrine 05-28 ONCE INTRA it y of (XYLOCAINE 01:57: 18:55 PROCEDURE, [place] W/EPINEPHRI 00 :46 Starting Medi elsa NE) 1.5 on [facility] %-1:200,000 05/27/22 at injection 2056, Until Discontinu ed, Routine, Intra-op oxytocin 2022- No 2mU/min at 2-40 Un thai (PITOCIN) 05-28- mL/hr, IV ity of 30 units in 01:15: 17:09 Infusion, [place] NS 500 mL 00 :05 TITRATE, Medica l IV infusion Starting Bran ch on Thu05/27/22 at 2015, Until Thu05/28/22 at 1209, JEISON aspirin 81 Yes Take by [facility] ers mg Cap -18 mouth. ity of 17:46: [address] PNV 0 Yes Take by [facility] 102-IRON-FO -18 mouth. ity of LATE-DHA 17:46: [address] misoprostol 2022- No 25ug 25 mcg, Un thai (CYTOTEC) 05-2719 Vaginal, ity o f quarter-tab 16:00: 17:09 Q4H ABX, [place] let 25 mcg 00 :05 First dose Med ical on [facility] 05/27/22 at 1100, Until Discontinu ed, Routine misoprostol 2022- No 25ug 25 mcg, Un thai (CYTOTEC) 05-27 Oral, ity of quarter-tab 16:00: 17:54 ONCE, 1 [place] let 25 mcg 00 :00 dose, On Medic al [facility] Branch 05/27/22 at 1100, Routine FENTanyl PF 2022- No 100ug 100 mcg, Univers (SUBLIMAZE 05-27 Slow IV ity o f (PF)) 15:51: 17:09 Push, [place] injection 32 :05 Q1HPRN, Medical 100 mcg Starting Branch on Thu05/27/22 at 1051, Until Thu05/28/22 at 1209, Routine, contractio n pain without an epidural and SVE < 8 cm and Cat I strip carboprost 2022- No 250ug 250 mcg, U nivers (HEMABATE) 05-27 Intramuscu it y of injection 15:51: 15:55 lar, [place] 250 mcg 19 :00 Q2HPRN, 1 Medical dose, Branch Starting on Thu05/27/22 at 1051, Until Discontinu ed, Routine, PPH lactated 2022- No 500mL at 999 Unive rs ringers IV 05-27-19 mL/hr, 500 it y of infusion 15:51: 17:09 mL, IV [place] 500 mL 19 :08 Infusion, Medical PRN - SEE Branch INSTRUCTIO NS, Starting on Thu05/27/22 at 1051, Until Thu05/28/22 at 1209, Routine D5W-LR IV 2022- No 1000mL at 1-125 U nivers infusion 05-27- mL/hr, IV ity o f 1,000 mL 15:51: 17:09 Infusion, Jose F as 19 :08 TITRATE, Medical Starting Branch on Thu05/27/22 at 1051, Until Thu05/28/22 at 1209, Routine aspirin 81 Yes Take by Univ ers mg Cap 4-09 mouth. ity of 18:49: [place] 02 Medical Branch PNV Yes Take by [facility] 102-IRON-FO 4-09 mouth. ity of LATE-DHA 18:49: [address] aspirin 81 2022-0 Yes Take by [facility] ers mg Cap 4- mouth. ity of 18:49: [address] PNV 0 Yes Take by [facility] 102-IRON-FO - mouth. ity of LATE-DHA 18:49: [address] aspirin 81 2022-0 Yes Take by [facility] ers mg Cap 4-09 mouth. ity of 18:49: [address] PNV 0 Yes Take by [facility] 102-IRON-FO - mouth. ity of LATE-DHA 18:49: [address] aspirin 81 0 Yes Take by [facility] ers mg Cap -09 mouth. ity of 18:49: [address] PNV 0 Yes Take by [facility] 102-IRON-FO - mouth. ity of LATE-DHA 18:49: [address] aspirin 81 0 Yes Take by [facility] ers mg Cap -09 mouth. ity of 18:49: [address] PNV 0 Yes Take by [facility] 102-IRON-FO 4- mouth. ity of LATE-DHA 18:49: [address] aspirin 81 0 Yes Take by [place] [facility] ers mg Cap -09 mouth. ity of 18:49: [address] 0 Yes Take by [facility] 102-IRON-FO - mouth. ity of LATE-DHA 18:49: [address] aspirin 81 0 Yes Take by [place] [facility] ers mg Cap - mouth. ity of 18:49: [address] PNV 0 Yes Take by [facility] 102-IRON-FO -09 mouth. ity of LATE-DHA 18:49: [address] terbutaline 2022- No .25mg 0.25 mg, Univers (BRETHINE) 05-08 Subcutaneo it y of injection 03:30: 03:22 , ONCE, [place] 0.25 mg 00 :00 1 dose, On Medica l Wed Branch 05/07/22 at 2230, JEISON NaCl 0.9% 2022- No 1000mL at 999 Uni vers (NS) bolus 3-30 03-30 mL/hr, ity of infusion 01:55: 02:14 1,000 mL, Jose F as 1,000 mL 00 :48 IV Medical Infusion, Branch ONCE, 1 dose, On 05/07/22 at 2100, STAT metroNIDAZO 2022- No 500mg 500 mg, U nivers LE (FLAGYL) 30 03-30 Oral, ity of tablet 500 01:55: 02:00 ONCE, 1 [place] F as mg 00 :00 dose, On Medical Wed Branch 05/07/22 at 2100, JEISON
Re ason for Anti-Infec tive: Documented Infection< br>Documen stella Infection Site: Pelvic
Duration of Therapy: Other (see Comments) aspirin 81 2022-0 Yes Take by Univ ers mg Cap 3-30 mouth. ity of 00:13: [address] PNV 0 Yes Take by Univers 102-IRON-FO 3-30 mouth. ity of LATE-DHA 00:13: [address] Branch aspirin 81 0 Yes Take by Univ ers mg Cap 3-30 mouth. ity of 00:13: [address] PNV 0 Yes Take by Univers 102-IRON-FO 3-30 mouth. ity of LATE-DHA 00:13: [address] Branch aspirin 81 2022-0 Yes Take by Univ ers mg Cap 3-30 mouth. ity of 00:13: [address] PNV 0 Yes Take by Univers 102-IRON-FO 3-30 mouth. ity of LATE-DHA 00:13: [address] Branch aspirin 81 2022-0 Yes Take by Univ ers mg Cap 3-30 mouth. ity of 00:13: [address] PNV 0 Yes Take by Univers 102-IRON-FO 3-30 mouth. ity of LATE-DHA 00:13: [address] Branch aspirin 81 2022-0 Yes Take by Univ ers mg Cap 3-30 mouth. ity of 00:13: [address] PNV 0 Yes Take by Univers 102-IRON-FO 3-30 mouth. ity of LATE-DHA 00:13: [address] Branch aspirin 81 2022-0 Yes Take by Univ ers mg Cap 3-30 mouth. ity of 00:13: [address] Branch PNV Yes Take by [facility] 102-IRON-FO 3-30 mouth. ity of LATE-DHA 00:13: [place] ORAL 49 [facility] Branch metroNIDAZO 2022- No [id number] 500mg Take 1 Univers LE (FLAGYL) 05-08- tablet by it y of 500 mg 00:00: 04:59 mouth in [place] tablet 00 :00 the Medical morning Branch and 1 tablet in the evening. Do all this for 7 days. metroNIDAZO 2022- No [id number] 500mg Take 1 Univers LE (FLAGYL) 05-08- tablet by it y of 500 mg 00:00: 04:59 mouth in [place] tablet 00 :00 the Medical morning Branch and 1 tablet in the evening. Do all this for 7 days. metroNIDAZO 2022- No [id number] 500mg Take 1 Univers LE (FLAGYL) 05-08 tablet by it y of 500 mg 00:00: 04:59 mouth in [place] tablet 00 :00 the [facility] morning Branch and 1 tablet in the evening. Do all this for 7 days. butalbital- 2022- No 1{tbl} 1 tablet, [facility] acetaminoph 04-17 Oral, ity of en-caff 01:00: 01:07 Q4HPRN, 1 [place] (ESGIC) 39 :00 dose, Medical 50-325-40 Starting Branch mg tablet 1 on Thu tablet 04/16/22 at 1900, Until 04/16/22 at 1907, Routine, Headache per Dr. Whitehead aspirin 81 0 Yes Take by [facility] ers mg Cap 3-08 mouth. ity of 21:34: [address] Branch PNV Yes Take by [facility] 102-IRON-FO 3-08 mouth. ity of LATE-DHA 21:34: [facility] 24 [facility] Branch aspirin 81 0 Yes Take by [place] [facility] ers mg Cap 3-08 mouth. ity of 21:34: [address] PNV Yes Take by [facility] 102-IRON-FO 3-08 mouth. ity of LATE-DHA 21:34: [place] ORAL 24 [facility] Branch metroNIDAZO 2023-0 Yes [id number] 500mg Take 1 Univers LE 500 mg 3-07 tablet by ity o f tablet 00:00: mouth [place] 00 every 12 Medical (twelve) Branch hours. metroNIDAZO 2022-0 Yes [id number] 500mg Take 1 Univers LE 500 mg 3-07 tablet by ity o f tablet 00:00: mouth [place] 00 every 12 Medical (twelve) Branch hours. metroNIDAZO 2022-0 Yes [id number] 500mg Take 1 Univers LE 500 mg 3-07 tablet by ity o f tablet 00:00: mouth [place] 00 every 12 Medical (twelve) Branch hours. metroNIDAZO 2022-0 Yes [id number] 500mg Take 1 Univers LE 500 mg 3-07 tablet by ity o f tablet 00:00: mouth [place] 00 every 12 Medical (twelve) Branch hours. metroNIDAZO 2022-0 Yes [id number] 500mg Take 1 Univers LE 500 mg 3-07 tablet by ity o f tablet 00:00: mouth [place] 00 every 12 Medical (twelve) Branch hours. metroNIDAZO 2022-0 Yes [id number] 500mg Take 1 Univers LE 500 mg 3-07 tablet by ity o f tablet 00:00: mouth [place] 00 every 12 Medical (twelve) Branch hours. metroNIDAZO 2022-0 3- No [id number] 500mg Take 1 Univers LE 500 mg 3-07 03-30 tablet by ity of tablet 00:00: 00:00 mouth [place] 00 :00 every 12 Medical (twelve) Branch hours. acetaminoph Yes 650mg 650 mg, Un thai en 04-09 Oral, ity of (TYLENOL) 00:21: Q6HPRN, [place] tablet 650 59 Starting Medic al mg on e Branch 04/08/22 at 1821, Until Discontinu ed, Routine, Pain (scale 4-6) aspirin 81 0 Yes Take by Univ ers mg Cap 2-28 mouth. ity of 20:07: [address] Branch PNV 0 Yes Take by [facility] 102-IRON-FO 2- mouth. ity of LATE-DHA 20:07: [place] [facility] aspirin 81 0 Yes Take by Univ ers mg Cap 2-28 mouth. ity of 20:07: [address] Branch PNV 2023-0 Yes Take by Univers 102-IRON-FO 2-28 mouth. ity of LATE-DHA 20:07: [facility] 13 Medical Branch aspirin 81 0 Yes Take by Univ ers mg Cap 2-28 mouth. ity of 20:07: [place] [address] Medical Branch PNV 0 Yes Take by Univers 102-IRON-FO 2-28 mouth. ity of LATE-DHA 20:07: [facility] Medical Branch aspirin 81 0 Yes Take by Univ ers mg Cap 2-28 mouth. ity of 20:07: [place] [address] Medical Branch PNV Yes Take by Univers 102-IRON-FO 2-28 mouth. ity of LATE-DHA 20:07: [facility] Medical Branch aspirin 81 Yes Take by Univ ers mg Cap 2-28 mouth. ity of 20:07: [place] [address] Medical Branch PNV Yes Take by Univers 102-IRON-FO 2-28 mouth. ity of LATE-DHA 20:07: [place] [address] Medical Branch aspirin 81 Yes Take by Univ ers mg Cap 2-20 mouth. ity of 15:35: [place] [address] Medical Branch PNV Yes Take by Univers 102-IRON-FO 2-20 mouth. ity of LATE-DHA 15:35: [place] [address] Medical Branch aspirin 81 0 Yes Take by Univ ers mg Cap 2-20 mouth. ity of 15:35: [place] [address] Medical Branch PNV Yes Take by Univers 102-IRON-FO 2-20 mouth. ity of LATE-DHA 15:35: [address] Vital Signs Vital Name Observation Time Observation Value Comments Source Systolic blood 2022-07-04 14:01:00 121 mm[Hg] Univer sity of pressure [facility] Diastolic blood 2022-07-04 14:01:00 83 mm[Hg] Unive rsity of pressure [facility] Heart rate 2022-07-04 14:01:00 99 /min [facility] Body temperature 2022-07-04 14:01:00 36.72 Amy [facility] [place] ersity [facility] Body weight 2022-07-04 14:01:00 99.882 kg [facility] BMI 2022-07-04 14:01:00 40.28 kg/m2 [facility] [place] [facility] Systolic blood 2022-06-04 14:53:00 120 mm[Hg] Univer sity of pressure [facility] Branch Diastolic blood 2022-06-04 14:53:00 82 mm[Hg] Unive rsity of pressure [place] [facility] Heart rate 2022-06-04 14:53:00 97 /min [facility] [place] [facility] Respiratory rate 2022-06-04 14:53:00 18 /min Univ ersity of [facility] Branch Body weight 2022-06-04 14:53:00 100.699 kg [facility] [place] [facility] BMI 2022-06-04 14:53:00 40.60 kg/m2 Universi ty of [facility] Branch Systolic blood 2022-05-30 12:45:00 119 mm[Hg] Univer sity of pressure [place] [facility] Diastolic blood 2022-05-30 12:45:00 61 mm[Hg] Unive rsity of [facility] Heart rate 2022-05-30 12:45:00 89 /min Universi ty of [facility] Body temperature 2022-05-30 12:45:00 36.94 Amy Univ ersity of [facility] Branch Respiratory rate 2022-05-30 12:45:00 17 /min Univ ersity of [facility] Oxygen saturation in 2022-05-30 12:45:00 99 /min University of Arterial blood by [facility] Pulse oximetry Branch Body height 2022-05-27 15:42:00 157.5 cm Universi ty of [facility] Body weight 2022-05-27 15:42:00 111.131 kg Universi ty of [facility] Branch BMI 2022-05-27 15:42:00 44.81 kg/m2 Universi ty of [facility] Branch Systolic blood 2022-05-23 18:07:00 127 mm[Hg] Univer sity of pressure [facility] Diastolic blood 2022-05-23 18:07:00 84 mm[Hg] Unive rsity of pressure [facility] Branch Heart rate 2022-05-23 18:07:00 98 /min Universi ty of [facility] Body temperature 2022-05-23 18:07:00 36.72 Amy Univ ersity of [facility] Branch Respiratory rate 2022-05-23 18:07:00 17 /min Univ ersity of [place] [facility] Body height 2022-05-23 18:07:00 157.5 cm [facility] [place] [facility] Body weight 2022-05-23 18:07:00 110.224 kg [facility] [place] [facility] BMI 2022-05-23 18:07:00 44.45 kg/m2 Universi ty of [facility] Heart rate 2022-05-18 23:30:00 106 /min Universi ty of [facility] Oxygen saturation in 2022-05-18 23:30:00 98 /min University of Arterial blood by [facility] Pulse oximetry Branch Systolic blood 2022-05-18 22:40:00 133 mm[Hg] Univer sity of pressure [place] [facility] [place] Diastolic blood 2022-05-18 22:40:00 65 mm[Hg] Unive rsity of pressure [facility] Body temperature 2022-05-18 22:40:00 36.61 Amy Univ ersity of [facility] Respiratory rate 2022-05-18 22:40:00 18 /min Univ ersity of [facility] Body height 2022-05-18 22:20:00 157.5 cm [facility] [place] [facility] Body weight 2022-05-18 22:20:00 109.861 kg [facility] [place] [facility] BMI 2022-05-18 22:20:00 44.30 kg/m2 [facility] [place] [facility] [place] Systolic blood 2022-05-15 15:10:00 111 mm[Hg] Univer sity of pressure [facility] Branch Diastolic blood 2022-05-15 15:10:00 76 mm[Hg] Unive rsity of pressure [facility] Heart rate 2022-05-15 15:10:00 106 /min [facility] [place] [facility] Body temperature 2022-05-15 15:10:00 36.83 Amy Univ ersity of [facility] Branch Respiratory rate 2022-05-15 15:10:00 18 /min Univ ersity of [facility] Body height 2022-05-15 15:10:00 152.4 cm Universi ty of [place] [facility] [place] Body weight 2022-05-15 15:10:00 107.049 kg [facility] [place] [facility] BMI 2022-05-15 15:10:00 46.09 kg/m2 [facility] [place] [facility] Systolic blood 2022-05-08 20:09:00 127 mm[Hg] Univer sity of pressure [place] [facility] Diastolic blood 2022-05-08 20:09:00 87 mm[Hg] Unive rsity of pressure [facility] Heart rate 2022-05-08 20:09:00 125 /min [facility] [place] [facility] Body temperature 2022-05-08 20:09:00 36.67 Amy Univ ersity of [place] [facility] Body weight 2022-05-08 20:09:00 106.777 kg [facility] [place] [facility] BMI 2022-05-08 20:09:00 45.97 kg/m2 [facility] [place] [facility] Heart rate 2022-05-08 04:51:00 113 /min [facility] [place] [facility] [place] Oxygen saturation in 2022-05-08 04:51:00 92 /min University Arterial blood by [facility] Pulse oximetry Branch Systolic blood 2022-05-08 04:07:00 135 mm[Hg] Univer sity of pressure [place] [facility] Diastolic blood 2022-05-08 04:07:00 85 mm[Hg] Unive rsity of pressure [place] [facility] Body temperature 2022-05-08 00:15:00 36.72 Amy Univ ersity of [facility] Branch Respiratory rate 2022-05-08 00:15:00 16 /min Univ ersity of [place] [facility] [place] Body weight 2022-05-07 23:30:00 105.87 kg [facility] [place] [facility] BMI 2022-05-07 23:30:00 45.58 kg/m2 [facility] [place] [facility] Systolic blood 2022-04-29 18:53:00 124 mm[Hg] Univer sity of pressure [facility] Diastolic blood 2022-04-29 18:53:00 90 mm[Hg] Unive rsity of pressure [facility] Heart rate 2022-04-29 18:53:00 101 /min [facility] [place] [facility] Body temperature 2022-04-29 18:53:00 36.67 Amy Univ ersity of [place] [facility] Body weight 2022-04-29 18:53:00 104.055 kg [facility] [place] [facility] BMI 2022-04-29 18:53:00 44.80 kg/m2 [facility] [place] [facility] Heart rate 2022-04-17 03:15:00 83 /min [facility] [place] [facility] Oxygen saturation in 2022-04-17 03:15:00 97 /min University of Arterial blood by [facility] Pulse oximetry Branch Systolic blood 2022-04-17 03:01:00 129 mm[Hg] Univer sity of pressure [place] [facility] Diastolic blood 2022-04-17 03:01:00 64 mm[Hg] Unive rsity of pressure [place] [facility] Respiratory rate 2022-04-17 01:07:00 17 /min Univ ersity of [place] [facility] Body temperature 2022-04-17 00:23:00 36.83 Amy Univ ersity of [place] [facility] Body weight 2022-04-17 00:00:00 102.331 kg [facility] [place] [facility] BMI 2022-04-17 00:00:00 44.06 kg/m2 [facility] [place] [facility] Systolic blood 2022-04-14 19:57:00 118 mm[Hg] Univer sity of pressure [place] [facility] Diastolic blood 2022-04-14 19:57:00 79 mm[Hg] Unive rsity of pressure [place] [facility] Heart rate 2022-04-14 19:57:00 90 /min [facility] [place] [facility] Body temperature 2022-04-14 19:57:00 36.67 Amy Univ ersity of [place] [facility] Respiratory rate 2022-04-14 19:57:00 18 /min Univ ersity of [place] [facility] Body height 2022-04-14 19:57:00 152.4 cm [facility] [place] [facility] Body weight 2022-04-14 19:57:00 101.878 kg [facility] [place] [facility] BMI 2022-04-14 19:57:00 43.86 kg/m2 [facility] [place] [facility] Oxygen saturation in 2022-04-14 19:57:00 99 /min University of Arterial blood by [facility] Pulse oximetry Branch Heart rate 2022-04-09 01:45:00 88 /min [facility] [place] [facility] Oxygen saturation in 2022-04-09 01:45:00 100 /min University of Arterial blood by [facility] Pulse oximetry Branch Systolic blood 2022-04-09 01:00:00 119 mm[Hg] Univer sity of pressure [place] [facility] Diastolic blood 2022-04-09 01:00:00 64 mm[Hg] Unive rsity of pressure [place] [facility] Body temperature 2022-04-09 00:55:00 37.11 Amy Univ ersity of [place] [facility] Respiratory rate 2022-04-09 00:55:00 16 /min Univ ersity of [place] [facility] Body height 2022-04-08 23:40:00 152.4 cm [facility] [place] [facility] Body weight 2022-04-08 23:40:00 101.016 kg [facility] [place] [facility] BMI 2022-04-08 23:40:00 43.49 kg/m2 [facility] [place] [facility] Systolic blood 2022-03-31 21:31:00 124 mm[Hg] Univer sity of pressure [place] [facility] Diastolic blood 2022-03-31 21:31:00 84 mm[Hg] Unive rsity of pressure [facility] Heart rate 2022-03-31 21:31:00 80 /min [facility] [place] [facility] Body temperature 2022-03-31 21:31:00 36.72 Amy Univ ersity of [place] [facility] Respiratory rate 2022-03-31 21:31:00 18 /min Univ ersity of [place] [facility] Body height 2022-03-31 21:31:00 152.4 cm [facility] [place] [facility] Body weight 2022-03-31 21:31:00 99.791 kg [facility] [place] [facility] BMI 2022-03-31 21:31:00 42.97 kg/m2 [facility] [place] [facility] Heart rate 2022-03-17 21:15:00 104 /min [facility] [place] [facility] Oxygen saturation in 2022-03-17 21:15:00 97 /min University Arterial blood by [facility] Pulse oximetry Branch Systolic blood 2022-03-17 21:00:00 114 mm[Hg] Univer sity of pressure [facility] Diastolic blood 2022-03-17 21:00:00 73 mm[Hg] Unive rsity of pressure [facility] Respiratory rate 2022-03-17 20:12:00 18 /min Univ ersity of [place] [facility] Body temperature 2022-03-17 18:26:00 36.94 Amy [facility] Body height 2022-03-17 18:26:00 152.4 cm [facility] Body weight 2022-03-17 18:26:00 92.987 kg [facility] BMI 2022-03-17 18:26:00 40.04 kg/m2 [facility] Procedures Procedure Date / Time Performing Clinician Source Performed SGOT (ASPARTATE AMINO 2022-05-29 13:23:00 Charley [facility] TRANSFER) Medical Branch CREATININE 2022-05-29 13:23:00 Charley [facility] ALANINE AMINO 2022-05-29 13:23:00 Charley [facility] TRANSFERASE(PT Medical [place] LACTATE DEHYDROGENASE 2022-05-29 13:23:00 Charley [facility] URIC ACID 2022-05-29 13:23:00 Charley [facility] MAGNESIUM 2022-05-29 13:23:00 Charley [facility] CBC WITH DIFF 2022-05-29 13:23:00 Charley [facility] CBC WITH DIFF 2022-05-29 09:10:00 Charley [facility] URINALYSIS 2022-05-29 04:31:00 Charley [facility] PROTEIN CREAT RATIO 2022-05-29 04:31:00 Arden Whitehead [facility] URINE RANDOM Medical Branch SGOT (ASPARTATE AMINO 2022-05-29 03:55:00 Charley [facility]) Medical Branch CREATININE 2022-05-29 03:55:00 Charley [facility] ALANINE AMINO 2022-05-29 03:55:00 Charley [facility] TRANSFERASE(PT Medical [place] LACTATE DEHYDROGENASE 2022-05-29 03:55:00 Charley [facility] URIC ACID 2022-05-29 03:55:00 Charley [facility] CBC WITH DIFF 2022-05-29 03:55:00 Charley [facility]den [facility] SGOT (ASPARTATE AMINO 2022-05-28 14:05:00 [facility] Medical Branch CREATININE 2022-05-28 14:05:00 [facility] 2022-05-28 14:05:00 [facility] Branch LACTATE DEHYDROGENASE 2022-05-28 14:05:00 Charley [facility] URIC ACID 2022-05-28 14:05:00 [facility] WITH DIFF 2022-05-28 14:05:00 Charley [facility] URINALYSIS 2022-05-28 14:05:00 Whitehead [facility] PROTEIN CREAT RATIO 2022-05-28 14:05:00 [facility] RANDOM [facility] Branch CENTRAL NEURAXIAL BLOCK 2022-05-28 01:37:00 Bart Braun [facility] HB ABO GROUPING 2022-05-27 16:24:00 Charley [facility] RHO (D) IMMUNE GLOBULIN 2022-05-27 16:24:00 [facility] H[facility] ADMISSION 2022-05-27 05:01:00 Doctor Unassigned, No [facility] ASSIGNMENT OF BENEFITS 2022-05-23 19:30:23 Doctor Unassigned, No [facility] NON-STRESS TEST 2022-05-23 18:57:00 Arden Whitehead [facility] POCT URINALYSIS W/O 2022-05-23 00:00:00 Charley [facility] SPECIFIC GRAVITY [facility] ASSIGNMENT OF BENEFITS 2022-05-18 22:15:54 Doctor Unassigned, No [facility] CONSENT/REFUSAL FOR 2022-05-18 22:10:09 Doctor Unassigned, No [facility] DIAGNOSIS AND TREATMENT [facility] POCT URINALYSIS W/O 2022-05-15 00:00:00 Whitehead, Arden Cam [facility] SPECIFIC GRAVITY Medical Branch >14 WEEKS US 2022-05-08 20:30:01 Arden Whitehead [facility] URINALYSIS 2022-05-08 00:38:00 Arden Whitehead [facility] ADC CLC OR LCC ONLY - 2022-05-08 00:38:00 Arden Whitehead [facility] POCT URINALYSIS W/O 2022-05-08 00:00:00 Arden Whitehead [facility] SPECIFIC [place] Medical Branch ASSIGNMENT OF BENEFITS 2022-05-07 23:22:41 Doctor Unassigned, No [facility] CONSENT/REFUSAL FOR 2022-05-07 23:19:18 Doctor Unassigned, No [facility] DIAGNOSIS AND TREATMENT [facility] Medical [place] POCT URINALYSIS W/O 2022-04-29 00:00:00 Arden Whitehead [facility] SPECIFIC [place] Medical [place] NOTICE OF PRIVACY 2022-04-16 23:55:48 Doctor Unassigned, No [facility] Medical [place] ASSIGNMENT OF BENEFITS 2022-04-16 23:55:12 Doctor Unassigned, No [facility] POCT URINALYSIS W/O 2022-04-14 00:00:00 Arden Whitehead [facility] SPECIFIC [place] Medical Branch ALANINE AMINO 2022-04-09 00:33:00 Adum, Trisha Miller [facility] TRANSFERASE(SGPT Medical Branch LACTATE DEHYDROGENASE 2022-04-09 00:33:00 Adum, Trisha Miller [facility] URIC ACID 2022-04-09 00:33:00 Adum, Trisha Miller [facility] CBC WITH DIFF 2022-04-09 00:33:00 Adum, Trisha Miller [facility] URINALYSIS 2022-04-09 00:33:00 Adum, Trisha Miller [facility] HB ABO GROUPING 2022-04-09 00:33:00 Adum, Trisha Miller [facility] PROTEIN CREAT RATIO 2022-04-09 00:33:00 Adum, Trisha Miller [facility] URINE RANDOM Medical Branch SGOT (ASPARTATE AMINO 2022-04-09 00:33:00 Adum, Trisha Miller [facility] TRANSFER) Medical Branch CREATININE 2022-04-09 00:33:00 Adum, Trisha Miller [place] [facility] [place] [facility] ASSIGNMENT OF BENEFITS 2022-04-08 23:36:16 Doctor Unassigned, No [facility] Name [facility] CONSENT/REFUSAL FOR 2022-04-08 23:35:38 Doctor Unassigned, No [facility] [place] [facility] Name [facility] Branch ASSIGNMENT OF BENEFITS 2022-03-31 20:12:54 Doctor Unassigned, No [facility] POCT URINALYSIS W/O 2022-03-31 00:00:00 [facility] SPECIFIC GRAVITY [facility] Branch ASSIGNMENT OF BENEFITS 2022-03-17 18:20:15 Doctor Unassigned, No [facility] CONSENT/REFUSAL FOR 2022-03-17 18:17:10 Doctor Unassigned, No [facility] Encounters Start End Encounter Admission Attending Care Care Encounter Source Date/Time Date/Time Type Type Clinicians Facility Department ID 2022-12-22 Outpatient X [facility] ALEK [id number] Univers 09:14:47 ity [facility] 2023-01-05 2023-01-05 Outpatient ARDEN AGUILAR [facility] [id number] Univers 08:00:00 08:00:00 ity of [facility] 2022-07-04 2022-07-04 Routine Burke [facility] [id number] Univers 09:00:00 09:15:00 Aletha GASPAR 350.1.13.10 ity of Visit [facility] 4.2.7.2.686 Chaim EARLESSISAMAR [id number] Ms [place]ical [place] [id number] Branch [facility] 2022-07-04 2022-07-04 Outpatient Sade ZARATE [facility] [id number] Univers 09:00:00 09:00:00 ALETHA lee [facility] 2022-06-04 2022-06-04 Nurse Nurse, [facility] 1.2.840.114 [id number] Univers 10:00:00 10:15:00 Visit Arden Whitehead HUBERT 350.1.13.10 [place] [id number] Ms dical NAL [address] [place] [address] 2022-06-04 2022-06-04 Outpatient R ARDEN WHITEHEAD [facility] [id number] Univers 10:00:00 10:00:00 ity of [facility] 2022-06-04 2022-06-04 [facility] 1.2.840.114 [id number] Univers 00:00:00 00:00:00 Cam HUBERT 350.1.13.10 i ty [place] [id number] Ms dic[address] 2022-05-27 2022-05-30 Inpatient [facility] [id number] Univers 10:11:00 11:00:00 ity of [facility] 2022-05-27 2022-05-30 Hospital [facility] 1.2.840.114 [id number] Univers 10:11:00 11:00:00 Encounter Rodolfo GASPAR 350.1.13.10 [place] [id number] [address] 2022-05-27 2022-05-28 Anesthesia Bart Braun [facility] 1.2 .840.114 [id number] Univers 20:37:00 13:41:00 Event Pankaj Bhatia 350.1.13. 10 [place] [id number] [address] 2022-05-27 2022-05-27 Anesthesia Lorena [facility] 1.2.840.114 [id number] Univers 17:47:41 17:47:41 Event Gregg GASPAR 350.1.13.10 i ty [place] [id number] [address] 2022-05-27 2022-05-27 Orders Doctor GALICIA 1.2.840.114 [id number] Univers 00:00:00 00:00:00 Only Unassigned, LAVONNE 350.1.13.10 ity of [place] [facility] 4.2.7.2.686 Jose F as [id number] [address] 2022-05-26 2022-05-26 Mri Assistant Scott, Ish Lab Main [facility] 1.2.8 [id number] Univers 08:30:00 08:45:00 Visit Arden Whitehead 350.1.13.10 ity [facility] [place].7.[place] [id number] [address] 2022-05-26 2022-05-26 Outpatient R ARDEN WHITEHEAD [facility] [id number] Univers 08:30:00 08:30:00 ity of [facility] 2022-05-23 2022-05-23 Routine Charley [facility] 1.2.840.114 [id number] Univers 08:30:00 08:45:00 Rodolfo SALGADO 350.1.13.10 i ty of Visit [facility].[address] [place] [id number] [facility] [address] Branch 2022-05-23 2022-05-23 Outpatient R ARDEN WHITEHEAD [facility] [id number] Univers 08:30:00 08:30:00 ity of [facility] 2022-05-23 2022-05-23 Orders Doctor GALICIA 1.2.840.114 [id number] Univers 00:00:00 00:00:00 Only Unassigned, LAVONNE 350.1.13.10 ity of [place] [facility] 4.2.7.2.686 Jose F as [id number] [address] 2022-05-18 2022-05-18 Outpatient X LEAH GONZALEZ [facility] O BY [id number] Univers 17:25:00 18:35:00 MELANI-LESLIE RENEESOL ity of [facility] 2022-05-18 2022-05-18 Emergency Wolf-Kerry [facility] 1.2.840.114 [id number] Univers 17:25:00 18:35:00 s, Leah LEÓNTORSTEN 350.1.13.10 ity of [place] [id number] [facility] [address] [place] 2022-05-18 2022-05-18 Orders Doctor FRIDA 1.2.840.114 [id number] Univers 00:00:00 00:00:00 Only Unassigned, LAVONNE 350.1.13.10 ity of [place] [facility] 4.2.7.2.686 Jose F as [id number] [facility] [address] [place] 2022-05-16 2022-05-16 Mri Assistant 2, [facility] Lab [facility] 1.2.840.114 [id number] Univers 08:30:00 08:45:00 Visit Charley Arden Rodolfo GASPAR 350.1.13.10 ity [place] [id number] Ms dical NAL [address] [facility] 2022-05-16 2022-05-16 Outpatient R ARDEN WHITEHEAD [facility] [id number] Univers 08:30:00 08:30:00 ity of [facility] 2022-05-15 2022-05-15 Outpatient R ARDEN WHITEHEAD [facility] [id number] Univers 09:45:00 10:23:45 ity of [facility] 2022-05-15 2022-05-15 Routine Arden Whitehead [facility] [id number] [id number] Univers 09:45:00 10:23:45 Rodolfo GASPAR 350.1.13.10 ity of [place] [id number] Ms dical NAL [address] [facility] 2022-05-14 2022-05-14 Mri Assistant 1, [facility] Room [facility] 1.2. 840.114 [id number] Univers 09:30:00 10:15:00 Visit John Paul Lanier ENERGY ATTORNEY 350.1. 13.10 ity of REGIONAL 4.2.7.2.686 Jose F as MATERNAL [id number] Med ical & CHILD [address] [place] [address] 2022-05-14 2022-05-14 Outpatient P SWEET [facility] [id number] Univers 09:30:00 09:30:00 KOSHERLYNOUVARSHAI it y of S, COKER [facility] 2022-05-08 2022-05-08 Routine Charley [facility] 1.2.032.141 [id number] Univers 15:00:00 15:15:00 Cam [place] 350.1.13.10 ity of [place] [id number] Ms dic[address] 2022-05-08 2022-05-08 Outpatient R CHARLEY [facility] [id number] Univers 15:00:00 15:00:00 ity of [facility] 2022-05-07 2022-05-08 Outpatient P CHARLEY [facility] ALEK [id number] Univers 18:36:00 00:02:00 ity of [facility] 2022-05-07 2022-05-08 Hospital Char[facility] 1.2.840.114 [id number] Univers 18:36:00 00:02:00 Encounter Cam [place] 350.1.13.10 [place] [id number] [address] 2022-04-29 2022-04-29 Outpatient R ARDEN WHITEHEAD [facility] [id number] Univers 13:30:00 14:52:58 ity of [facility] 2022-04-29 2022-04-29 Routine Charley [facility] 1.2.006.832 [id number] Univers 13:30:00 14:52:58 Cam [place] 350.1.13.10 ity of [place] [id number] Ms dic[address] 2022-04-16 2022-04-16 Outpatient X ARDEN WHITEHEAD [facility] ALEK [id number] Univers 18:04:00 21:25:00 ity of [facility] 2022-04-16 2022-04-16 Emergency Charley [facility] 1.2.840.114 [id number] Univers 18:04:00 21:25:00 Cam HUBERT 350.1.13.10 i ty of [place] 4.2.7.2.686 [place] [id number] [facility] [address] [place] 2022-04-16 2022-04-16 Telephone Arden Whitehead [facility] 1.2.840.114 [id number] Univers 00:00:00 00:00:00 [place] 350.1.13.10 i [place] [id number] Ms dical NAL [address] [facility] 2022-04-16 2022-04-16 Orders Doctor FRIDA 1.2.840.114 [id number] Univers 00:00:00 00:00:00 Only Unassigned, LAV[place] 350.1.13.10 ity of [place] [facility] 4.2.7.2.686 Jose F as [id number] [facility] [address] [place] 2022-04-15 2022-04-15 Case Burke [facility] [id number] Univers 00:00:00 00:00:00 Management Aletha HUBERT 350.1.13.10 [place] [id number] Ms dical NAL [address] [place] [address] 2022-04-14 2022-04-14 Routine Arden Whitehead [facility] 1.2.455.627 [id number] Univers 13:30:00 14:11:58 Rodolfo GASPAR 350.1.13.10 it[place] of [place] [id number] Ms dical NAL [address] [place] [address] 2022-04-14 2022-04-14 Outpatient R ARDEN WHITEHEAD DCARLEN [facility] [id number] Univers 13:30:00 14:11:58 ity of [facility] 2022-04-08 2022-04-08 Outpatient X CHARLEY ARDEN [facility] ALEK [id number] Univers 17:43:00 19:53:00 ity of [facility] 2022-04-08 2022-04-08 Emergency Charley Arden [facility] 1.2.840.114 [id number] Univers 17:43:00 19:53:00 Cam [place] 350.1.13.10 i [place]2.[place] [id number] [facility] [address] [place] 2022-04-08 2022-04-08 Telephone Arden Whitehead [facility] 1.2.840.114 [id number] Univers 00:00:00 00:00:00 Cam [place] 350.1.13.10 i ty [place] [id number] Ms dical NAL 134 [facility] 2022-03-31 2022-03-31 Outpatient R ARDEN WHITEHEAD [facility] [id number] Univers 14:30:00 16:00:13 ity of [facility] 2022-03-31 2022-03-31 Initial Charley [facility] 1.2.600.768 [id number] Univers 14:30:00 16:00:13 Cam [place] 350.1.13.10 [place]2.[place] [facility] [id number] Ms dical NAL 134 [facility] 2022-03-31 2022-03-31 Orders Doctor FRIDA 1.2.840.114 [id number] Univers 00:00:00 00:00:00 Only Unassigned, LAVONNE 350.1.13.10 ity of [place] [facility] 4.2.7.2.686 Jose F as [id number] [facility] [address] [place] 2022-03-17 2022-03-17 Emergency Charley [facility] 1.2.840.114 10 [id number] Univers 12:34:00 15:55:00 Cam [place] 350.1.13.10 i [place]2.[place] [id number] [facility] [address] [place] 2022-03-17 2022-03-17 Outpatient X CHARLEY [facility] ALEK [id number] Univers 12:34:00 15:55:00 ity of [facility] 2022-03-17 2022-03-17 Orders Doctor FRIDA 1.2.840.114 [id number] Univers 00:00:00 00:00:00 Only Unassigned, LAVONNE 350.1.13.10 ity of [place] [facility] 4.2.7.2.[address] [facility] as [phone] [address] Results Test Description Test Time Test Comments Results Result Comments Source RHO (D) IMMUNE GLOBULIN 2022-05-28 17:56:35 Test Item Value Reference Range Interpretation Comme nts RHIG CANDIDATE? (test code = No- see comment Patient is not a candidate for RhIg- 5188) Patient is Rh P ositive.Performed at [facility] Laboratory Services - [facility] Blood [address] [place] [id number] Free: [phone] A No. [id number] [facility] [id number] 15:06:45 Test Item Value Reference Range Interpretation Comments URIC ACID (test code = 2751515998) 4.6 mg/dL 2.9-6.0 Lab Interpretation (test code = Normal 45665-0) [facility]actate [id number] 15:06:45 Test Item Value Reference Range Interpretation Comments LDH (test code = 4168063328) 137 U/L 120-246 Lab Interpretation (test code = Normal 94410-3) [facility] Amino Transferase (SGPT)2022-05-28 15:06:44 Test Item Value Reference Range Interpretation Comments ALTv (test code = 1742-6) 16 U/L 5-35 Lab Interpretation (test code = Normal 26138-3) [facility]um [id number] 15:06:24 Test Item Value Reference Range Interpretation Comments CREATININE (test code 0.57 mg/dL 0.50-1.04 = 4704513204) eGFR (test code = 129.2 mL/min/1.73m2 9500097711) JODI (test code = JODI) Association of Glomerular Filtration Rate (GFR) and Staging of Kidney Disease* + + +- +| GFR (mL/min/1.73 m2) ?| With Kidney Damage ?| ?Without Kidney Damage+ ------+ ----+ ------+| ?>90 ?| ?Stage one ?| ? Normal ?+ -+ + -+| ?60-89 ?| ?Stage two ?| ? Decreased GFR ? + + +- +| ?30-59 ?| ?Stage three ?| ? Stage three ? + + +- +| ?15-29 ?| ?Stage four ? | ? Stage four ?+ -+ + -+| ?<15 (or dialysis) ? ?| ?Stage five ? | ? Stage five ?+ -+ + -+ *Each stage assumes the associated GFR level has been in effect for at least three months. ?Stages 1 to 5, with or without kidney disease, indicate chronic kidney disease. Notes: Determination of stages one and two (with eGFR >59mL/min/1.73 m2) requires estimation of kidney damage for at least three months as defined by structural or functional abnormalities of the kidney, manifested by either:Pathological abnormalities or Markers of kidney damage (including abnormalities in the composition of the blood or urine or abnormalities in imaging tests). [facility] (Asparate Amino Transfer)2022-05-28 15:06:24 Test Item Value Reference Range Interpretation Comments AST(SGOT) (test code = 5730575341) 22 U/L 13-40 Lab Interpretation (test code = Normal 29266-9) [facility] with [id number] 14:32:58 Test Item Value Reference Range Interpretation Comments WBC (test code = 14.68 See_Comment H [Automated 2714-2) message] The system which generated this result transmit stella reference range : 4.30 - 11.10 10*3/?L. The reference range was not used to interpret this result as normal/abnormal . RBC (test code = 4.02 See_Comment [Automated 433-8) message] The system which generated this result transmit stella reference range : 3.93 - 5.25 10*6/?L. The reference range was not used to interpret this result as normal/abnormal . HGB (test code = 13.0 g/dL 11.6-15.0 718-7) HCT (test code = 38.6 % 35.7-45.2 4544-3) MCV (test code = 96.0 fL 80.6-95.5 H 787-2) MCH (test code = 32.3 pg 25.9-32.8 785-6) MCHC (test code = 33.7 g/dL 31.6-35.1 786-4) RDW-SD (test code = 48.6 fL 39.0-49.9 65810-0) RDW-CV (test code = 13.8 % 12.0-15.5 788-0) PLT (test code = 197 See_Comment [Automated 777-3) message] The system which generated this result transmit stella reference range : 166 - 358 10*3/ ?L. The reference range was not u sed to interpret th is result as normal/abnormal . MPV (test code = 11.3 fL 9.5-12.9 39814-7) NRBC/100 WBC (test 0.0 See_Comment [Automat ed code = 0228493648) message] The system which generated this result transmit stella reference range : 0.0 - 10.0 /100 WBCs. The reference range was not used to interpret this result as normal/abnormal . NRBC x10^3 (test code See_Comment [Auto mated = [id number]) message] The system which generated this result transmit stella reference range : 10*3/?L. The reference range was not used to interpret this result as normal/abnormal . GRAN MAT (NEUT) % 89.2 % (test code = 770-8) IMM GRAN % (test code 0.70 % = 1141114700) LYMPH % (test code = 5.0 % 736-9) MONO % (test code = 4.8 % 5905-5) EOS % (test code = 0.1 % 713-8) BASO % (test code = 0.2 % 706-2) GRAN MAT x10^3(ANC) 13.09 10*3/uL 1.88-7.09 H (test code = 7703485033) IMM GRAN x10^3 (test 0.10 10*3/uL 0.00-0.06 H code = 0731541320) LYMPH x10^3 (test code 0.74 10*3/uL 1.32-3.29 L = 731-0) MONO x10^3 (test code 0.71 10*3/uL 0.33-0.92 = 742-7) EOS x10^3 (test code = 0.03-0.39 L 711-2) BASO x10^3 (test code 0.03 10*3/uL 0.01-0.07 = 704-7) Lab Interpretation Abnormal (test code = 40340-4) [facility] URINALYSIS W/O SPECIFIC [id number] 18:04:00 Test Item Value Reference Range Interpretation Comments POCT PH U (test code = 3254) n/a 5-8 POCT U LEUK EST (test code = n/a Negative - Negative 3263) POCT U NIT (test code = 3262) n/a Negative - Negative POCT U PROT (test code = 3259) negative Negative - Negative POCT U GLU (test code = 3256) negative Negative - Negative POCT U KETONE (test code = 3258) n/a Negative - Negative POCT U BLD (test code = 3257) n/a Negative - Negative [facility] URINALYSIS W/O SPECIFIC [id number] 15:09:00 Test Item Value Reference Range Interpretation Comments POCT PH U (test code = 3254) n/a 5-8 POCT U LEUK EST (test code = 3263) n/a Negative - Negative POCT U NIT (test code = 3262) n/a Negative - Negative POCT U PROT (test code = 3259) ++ Negative - Negative POCT U GLU (test code = 3256) Normal Negative - Negative POCT U KETONE (test code = 3258) n/a Negative - Negative POCT U BLD (test code = 3257) n/a Negative - Negative [facility] URINALYSIS W/O SPECIFIC [id number] 20:10:00 Test Item Value Reference Range Interpretation Comments POCT PH U (test code = 3254) n/a 5-8 POCT U LEUK EST (test code = n/a Negative - Negative 3263) POCT U NIT (test code = 3262) na/ Negative - Negative POCT U PROT (test code = 3259) Negative Negative - Negative POCT U GLU (test code = 3256) Normal Negative - Negative POCT U KETONE (test code = 3258) n/a Negative - Negative POCT U BLD (test code = 3257) n/a Negative - Negative [facility] W/O SPECIFIC [id number] 19:02:00 Test Item Value Reference Range Interpretation Comments POCT PH U (test code = 3254) 5 mg/dl 5-8 POCT U LEUK EST (test code = Trace Negative - Negative 3263) POCT U NIT (test code = 3262) Negative Negative - Negative POCT U PROT (test code = 3259) Negative Negative - Negative POCT U GLU (test code = 3256) Normal Negative - Negative POCT U KETONE (test code = 3258) Negative Negative - Negative POCT U BLD (test code = 3257) Negative Negative - Negative [facility] W/O SPECIFIC [id number] 19:54:00 Test Item Value Reference Range Interpretation Comments POCT PH U (test code = 3254) n/a 5-8 POCT U LEUK EST (test code = n/a Negative - Negative 3263) POCT U NIT (test code = 3262) n/a Negative - Negative POCT U PROT (test code = 3259) negative Negative - Negative POCT U GLU (test code = 3256) negative Negative - Negative POCT U KETONE (test code = 3258) n/a Negative - Negative POCT U BLD (test code = 3257) n/a Negative - Negative [facility] and Screen - ONCE [id number] 01:27:30 Test Item Value Reference Range Interpretation Comments ABO & RH (test code O Positive Performe d at [facility] = 20) Laboratory Serv [facility] Blood Bank1 [address] [place] [address] Free: [phone] A No. [id number] IAT (test code = Negative Performed a t [facility] 1185) Laboratory Serv [facility] Blood [address] [place], [place] [address]Toll Free: [phone] A No. [id number] [facility] URINALYSIS W/O SPECIFIC [id number] 21:26:00 Test Item Value Reference Range Interpretation Comments POCT PH U (test code = 3254) n/a 5-8 POCT U LEUK EST (test code = n/a Negative - Negative 3263) POCT U NIT (test code = 3262) n/a Negative - Negative POCT U PROT (test code = 3259) negative Negative - Negative POCT U GLU (test code = 3256) negative Negative - Negative POCT U KETONE (test code = 3258) n/a Negative - Negative POCT U BLD (test code = 3257) n/a Negative - Negative [facility]"
--- NOTE | 2023-01-13 18:18 | RAD REPORT ---
EXAM DESCRIPTION: RAD - Lumbar Spine 3 Views - 01/13/2023 5:58 pm CLINICAL HISTORY: Back pain FINDINGS: No fracture or dislocation is seen. No significant bone or joint abnormality noted
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
[2023-01-13 18:55] VITALS: TEMP 97.3
[2023-01-13 19:00] VITALS: BP 135/84; O2SAT 100
== END 2023-01-13 18:34 | disposition home or self-care (01) ==
LOC: ER 16:53
DX: M54.50 Low back pain, unspecified (principal); M79.642 Pain in left hand; V49.49XA Driver injured in collision with other motor vehicles in traffic accident, initial encounter; Z88.8 Allergy status to other drugs, medicaments and biological substances; Z91.048 Other nonmedicinal substance allergy status
CPT/HCPCS: 72100; 96372; 99285

== ENCOUNTER → 2023-03-10 | Emergency (ER) | payer SELFPAY ==
[~2023-03-10] MED LIST: DIPHENHYDRAMINE 50 MG/ML VIAL ONE; KETOROLAC 30 MG/ML INJ ONE; METOCLOPRAMIDE 10 MG/2mL INJ ONE; NA CHLORIDE 0.9% 1,000 ML ONE; dexAMETHasone 10 MG/ML VIAL ONE
--- OUTSIDE RECORDS SUMMARY | 2023-03-10 18:38 | XMS REPORT | Continuity of Care Document ---
Author Name Unknown Address [address] [facility] [address] [place] [address] [facility] thconnect Address [address] [facility] [place] [address] Care Team Providers Care Furnace Mechanic Name Role Phone DAVIS HAMM JR Primary Care Physician ARDEN Breaux Attending Clinician Unavailable Aletha Zarate PA-C Attending Clinician [phone] ALETHA ZARATE Attending Clinician Unavailable Nurse, [facility] Attending Clinician Un available Arden Whitehead MD Attending Clinician [phone] Bart Braun MD Attending Clinician + [phone] Pankaj Bhatia MD Attending Clinician + [phone] Gregg Carrillo CRNA Attending Clinician [phone] Doctor Unassigned, [place] Attending Clinician U martha Chavez, [facility] Main Attending Clinician UnavailLEAH Baker Attending Clinician LEAH Lees Attending Clinician Niles diamond 2, [facility] Attending Clinician Unavailable 1, [facility] Attending Clinician Unavailab lashae Diana MD, John Paul Attending Clinician + JOHN PAUL LANIER Attending Clinician ARDEN Fry Admitting Clinician Arden Del Castillo MD Admitting Clinician LEAH GONZALEZ Admitting Clinician Niles diamond Payers Payer Name Policy Type Policy Number Effective Date Expirati on Date Source [facility] [place] [facility] [id number] 2022 00:00:00 Problems Condition Name Condition Details Condition Category Status Onset Date Resolution Date Last Treatment Date Treating Clinician Comments Source Liveborn infant, of marques , born in hospital by vaginal delivery Liveborn infant, of marques , born in hospital by vaginal delivery Disease Active 4-19 00:00: 00 [facility] 39 weeks gestation of 39 weeks gestation of Disease Active 4-17 00:00: 00 [facility] Morbid obesity with body mass index of 40.0-49.9 Morbid obesity with body mass index of 40.0-49.9 Disease Active 4-06 00:00: 00 [facility] Pelvic pain during , antepartum Pelvic pain during , antepartum Disease Active 3-21 00:00: 00 [facility] Mild pre-eclamp kevin in third trimester Mild pre-eclamp kevin in third trimester Disease Active 2-20 00:00: 00 [facility] Severe pre-eclamp kevin in third trimester Severe pre-eclamp kevin in third trimester Disease Active 2-20 00:00: 00 [facility] BMI 40.0-44.9, adult BMI 40.0-44.9, adult Disease Active 2-20 00:00: 00 [facility] Obesity in Obesity in Disease Active 2-20 00:00: 00 [facility] High-risk in third trimester High-risk in third trimester Disease Active 2-20 00:00: 00 [facility] Elevated BP without diagnosis of hypertensi on Elevated BP without diagnosis of hypertensi on Disease Active 2-20 00:00: 00 [facility] Excessive weight gain during , antepartum Excessive weight gain during , antepartum Disease Active 2 00:00: 00 [facility] Allergies, Adverse Reactions, Alerts Allergy Name Allergy Type Status Severity Reaction(s) Onset Date Inactive Date Treating Clinician Comments Source ACYCLOVI R DRUG INGREDI Active Hives 04-15 00:00: 00 [facility] ADHESIVE TAPE-DAVE ICONES DRUG Active Hives 04-15 00:00: 00 [facility] Acyclovi r Propensi ty to adverse reaction s Active Hives 04-15 00:00: 00 [facility] Adhesive Tape-Dave icones Propensi ty to adverse reaction s Active Hives 04-15 00:00: 00 [facility] Social History Social Habit Start Date Stop Date Quantity Comments Source ASSERTION 2021-09-10 00:00:00 [facility] Exposure to SARS-CoV-2 (event) 2022-06-23 00:00:00 2022-07-03 20:41:00 Not sure [facility] Alcohol intake 2022-06-04 00:00:00 2022-06-04 00:00:00 Ex-drinker (finding) [facility] Tobacco use and exposure 2022-05-27 00:00:00 2022-05-27 00:00:00 Smokeless tobacco non-user [facility] Sex Assigned At 1995 00:00:00 1995 00:00:00 [facility] Smoking Status Start Date Stop Date Source Tobacco smoking consumption unknown [facility] Never smoked tobacco [facility] Medications Ordered Medication Name Filled Medication Name Start Date Stop Date Current Medication? Ordering Clinician Indication Dosage Frequency Signature (SIG) Comments Components Source aspirin 81 mg Cap 05-30 10:10: 08 05-30 00:00 :00 No Take by mouth. [facility] PNV 102-IRON-FO LATE-DHA ORAL 05-30 10:10: 08 05-30 00:00 :00 No Take by mouth. [facility] cyclobenzap rine 10 mg tablet 05-30 00:00: 00 Yes [id number] 10mg Take 1 tablet by mouth 3 (three) times daily as needed for Muscle Spasms. [facility] vitamin w/FA tablet 2022-0 05-30 00:00: 00 Yes [id number] 1{tbl} Take 1 tablet by mouth in the morning. [facility] docusate 100 mg capsule 2022-0 05-30 00:00: 00 Yes [id number] 200mg Take 2 capsules by mouth once daily as needed for Constipati on. [facility] ferrous sulfate 325 mg (65 mg iron) tablet 2022-0 05-30 00:00: 00 Yes [id number] 325mg Take 1 tablet by mouth in the morning and 1 tablet in the evening. [facility] ibuprofen 600 mg tablet 2022-0 05-30 00:00: 00 Yes [id number] 600mg Take 1 tablet by mouth every 6 (six) hours as needed (Pain). Take with food or milk. [facility] cyclobenzap rine 10 mg tablet 0 05-30 00:00: 00 Yes [id number] 10mg Take 1 tablet by mouth 3 (three) times daily as needed for Muscle Spasms. [facility] vitamin w/FA tablet 0 05-30 00:00: 00 Yes [id number] 1{tbl} Take 1 tablet by mouth in the morning. [facility] docusate 100 mg capsule 0 05-30 00:00: 00 Yes [id number] 200mg Take 2 capsules by mouth once daily as needed for Constipati on. [facility] ferrous sulfate 325 mg (65 mg iron) tablet 2022-0 05-30 00:00: 00 Yes [id number] 325mg Take 1 tablet by mouth in the morning and 1 tablet in the evening. [facility] ibuprofen 600 mg tablet 2022-0 05-30 00:00: 00 Yes [id number] 600mg Take 1 tablet by mouth every 6 (six) hours as needed (Pain). Take with food or milk. [facility] cyclobenzap rine 10 mg tablet 2022-0 05-30 00:00: 00 Yes [id number] 10mg Take 1 tablet by mouth 3 (three) times daily as needed for Muscle Spasms. [facility] vitamin w/FA tablet 2022-0 05-30 00:00: 00 Yes [id number] 1{tbl} Take 1 tablet by mouth in the morning. [facility] docusate 100 mg capsule 2022-0 05-30 00:00: 00 Yes [id number] 200mg Take 2 capsules by mouth once daily as needed for Constipati on. [facility] ferrous sulfate 325 mg (65 mg iron) tablet 2022-0 05-30 00:00: 00 Yes [id number] 325mg Take 1 tablet by mouth in the morning and 1 tablet in the evening. [facility] ibuprofen 600 mg tablet 2022-0 05-30 00:00: 00 Yes [id number] 600mg Take 1 tablet by mouth every 6 (six) hours as needed (Pain). Take with food or milk. [facility] cyclobenzap rine 10 mg tablet 2022-0 05-30 00:00: 00 Yes [id number] 10mg Take 1 tablet by mouth 3 (three) times daily as needed for Muscle Spasms. [facility] vitamin w/FA tablet 2022-0 05-30 00:00: 00 Yes [id number] 1{tbl} Take 1 tablet by mouth in the morning. [facility] docusate 100 mg capsule 2022-0 05-30 00:00: 00 Yes [id number] 200mg Take 2 capsules by mouth once daily as needed for Constipati on. [facility] ferrous sulfate 325 mg (65 mg iron) tablet 2022-0 05-30 00:00: 00 Yes [id number] 325mg Take 1 tablet by mouth in the morning and 1 tablet in the evening. [facility] ibuprofen 600 mg tablet 2022-0 05-30 00:00: 00 Yes [id number] 600mg Take 1 tablet by mouth every 6 (six) hours as needed (Pain). Take with food or milk. [facility] cyclobenzap rine 10 mg tablet 2022-0 05-30 00:00: 00 Yes [id number] 10mg Take 1 tablet by mouth 3 (three) times daily as needed for Muscle Spasms. [facility] vitamin w/FA tablet 05-30 00:00: 00 Yes [id number] 1{tbl} Take 1 tablet by mouth in the morning. [facility] docusate 100 mg capsule 05-30 00:00: 00 Yes [id number] 200mg Take 2 capsules by mouth once daily as needed for Constipati on. [facility] ferrous sulfate 325 mg (65 mg iron) tablet 05-30 00:00: 00 Yes [id number] 325mg Take 1 tablet by mouth in the morning and 1 tablet in the evening. [facility] ibuprofen 600 mg tablet 05-30 00:00: 00 Yes [id number] 600mg Take 1 tablet by mouth every 6 (six) hours as needed (Pain). Take with food or milk. [facility] SUMAtriptan (IMITREX) injection 6 mg 05-29 19:45: 00 05-29 19:03 :00 No 6mg 6 mg, Subcutaneo us, ONCE, 1 dose, On Thu05/29/22 at 1445, Routine [facility] cyclobenzap rine (FLEXERIL) tablet 10 mg 05-29 19:00: 00 Yes 10mg 10 mg, Oral, TID, First dose on Thu05/29/22 at 1400, Until Discontinu ed, Routine [facility] D5W 0.45% NaCl (1/2NS) IV infusion 1,000 mL 05-29 05:15: 00 Yes 1000mL at 75 mL/hr, 1,000 mL, IV Infusion, CONTINUOUS , Starting on Mira 05/29/22 at 0015, Until Discontinu ed, Routine [facility] magnesium sulfate in water for injection 20 gram/500 mL (4 %) IV infusion 05-29 05:15: 00 Yes 2g/h 2 g/hr (50 mL/hr), IV Infusion, CONTINUOUS , Starting on Mira 05/29/22 at 0015, Until Discontinu ed, JEISON [facility] calcium gluconate 100 mg/mL (10%) injection 1,000 mg 05-29 03:24: 47 Yes 1000mg 1,000 mg, Slow IV Push, PRN - SEE INSTRUCTIO NS, Starting on Thu05/28/22 at 2224, Until Discontinu ed, Routine, magnesium toxicity [facility] magnesium sulfate 4 mEq/mL (50 %) injection 32.48 mEq 05-29 03:24: 47 Yes 4g 32.48 mEq (4 g), Slow IV Push, PRN - SEE INSTRUCTIO NS, Starting on Thu05/28/22 at 2224, Until Discontinu ed, Routine, For seizure activity (patient not on magnesium sulfate) [facility] magnesium sulfate 4 mEq/mL (50 %) injection 16.24 mEq 05-29 03:24: 47 Yes 2g 16.24 mEq (2 g), Slow IV Push, PRN - SEE INSTRUCTIO NS, 2 doses, Starting on Thu05/28/22 at 2224, Until Discontinu ed, Routine, For seizure activity (patient already on magnesium sulfate) [facility] butalbital- acetaminoph en-caff (ESGIC) 50-325-40 mg tablet 1 tablet 05-29 03:19: 24 Yes 1{tbl} 1 tablet, Oral, Q4HPRN, Starting on Thu05/28/22 at 2219, Until Discontinu ed, Routine, Pain (scale 4-6) [facility] rho(D) immune globulin (RHOGAM) syringe 300 mcg 05-28 17:09: 28 Yes 300ug 300 mcg, Intramuscu lar, ONCE, For 1 dose, Conditiona l, Routine [facility] HYDROcodone -acetaminop hen (NORCO 5) 5-325 mg tablet 1 tablet 05-28 17:09: 24 Yes 1{tbl} 1 tablet, Oral, Q6HPRN, Starting on Thu05/28/22 at 1209, Until Discontinu ed, Routine, Pain (scale 7-10) [facility] ibuprofen (IBU) tablet 600 mg 05-28 17:09: 24 Yes 600mg 600 mg, Oral, Q6HPRN, Starting on Thu05/28/22 at 1209, Until Discontinu ed, Routine, Pain (scale 4-6) [facility] acetaminoph en (TYLENOL) tablet 650 mg 05-28 17:09: 24 Yes 650mg 650 mg, Oral, Q6HPRN, Starting on Thu05/28/22 at 1209, Until Discontinu ed, Routine, Pain (scale 1-3) [facility] diphenhydrA MINE (BENADRYL) tablet 25 mg 05-28 17:09: 24 Yes 25mg 25 mg, Oral, Q6HPRN, Starting on Thu05/28/22 at 1209, Until Discontinu ed, Routine, Sleep, Itching [facility] ondansetron (ZOFRAN (PF)) injection 4 mg 05-28 17:09: 24 Yes 4mg 4 mg, Slow IV Push, Q8HPRN, Starting on Thu05/28/22 at 1209, Until Discontinu ed, Routine, Nausea and Vomiting (N/V) [facility] simethicone (GAS RELIEF (SIMETHICON E)) chewable tablet 160 mg 05-28 17:09: 24 Yes 160mg 160 mg, Oral, PC+HSPRN, Starting on Thu05/28/22 at 1209, Until Discontinu ed, Routine, Gas [facility] docusate (COLACE) capsule 200 mg 05-28 17:09: 24 Yes 200mg 200 mg, Oral, QDAILYPRN, Starting on Thu05/28/22 at 1209, Until Discontinu ed, Routine, Constipati on [facility] magnesium hydroxide (MILK OF MAGNESIA) 400 mg/5 mL suspension 30 mL 05-28 17:09: 24 Yes 30mL 30 mL, Oral, QDAILYPRN, Starting on Thu05/28/22 at 1209, Until Discontinu ed, Routine, Constipati on [facility] benzocaine- menthol (DERMOPLAST ) 20-0.5 % topical spray 05-28 17:09: 23 Yes Topical, PRN, Starting on Thu05/28/22 at 1209, Until Discontinu ed, Routine, Perineum discomfort [facility] witch Jenni (TUCKS) 50 % topical pad 05-28 17:09: 05 Yes Topical, Q4HPRN, Starting on Thu05/28/22 at 1209, Until Discontinu ed, Routine, rectal/hem orrhoidal pain [facility] diphenoxyla te-atropine (LOMOTIL) 2.5-0.025 mg tablet 1 tablet 05-28 15:56: 32 05-28 17:09 :05 No 1{tbl} 1 tablet, Oral, Q6HPRN, Starting on Thu05/28/22 at 1056, Until Thu05/28/22 at 1209, Routine, Surgery/Pr ocedure [facility] butalbital- acetaminoph en-caff (ESGIC) 50-325-40 mg tablet 2 tablet 05-28 15:01: 00 05-28 15:05 :00 No 2{tbl} 2 tablet, Oral, ONCE, 1 dose, On Thu05/28/22 at 1015, Routine [facility] aspirin 81 mg Cap 05-28 12:06: 20 Yes Take by mouth. [facility] PNV 102-IRON-FO LATE-DHA ORAL 05-28 12:06: 20 Yes Take by mouth. [facility] diphenhydrA MINE (BENADRYL) injection 25 mg 05-28 09:35: 00 05-28 09:42 :00 No 25mg 25 mg, Intravenou s, ONCE, 1 dose, On Thu05/28/22 at 0445, JEISON [facility] fentaNYL-ro pivacaine 2 mcg/mL-0.1 % (PF) in NS 200 mL epidural infusion RTU 05-28 02:06: 00 05-28 18:55 :46 No Epidural, ONCE INTRA PROCEDURE, Starting on Thu05/27/22 at 2106, Until Discontinu ed, Routine, Intra-op [facility] fentaNYL-ro pivacaine 2 mcg/mL-0.1 % (PF) in NS 200 mL epidural infusion RTU 05-28 02:06: 00 05-28 18:55 :46 No Epidural, CONTINUOUS PRN, Starting on Thu05/27/22 at 2106, Until Discontinu ed, Routine, Intra-op [facility] lidocaine-e pinephrine (XYLOCAINE W/EPINEPHRI NE) 1.5 %-1:200,000 injection 05-28 01:57: 00 05-28 18:55 :46 No Epidural, ONCE INTRA PROCEDURE, Starting on Thu05/27/22 at 2057, Until Discontinu ed, Routine, Intra-op [facility] oxytocin (PITOCIN) 30 units in NS 500 mL IV infusion 05-28 01:15: 00 05-28 17:09 :05 No 2mU/min at 2-40 mL/hr, IV Infusion, TITRATE, Starting on Thu05/27/22 at 2015, Until Thu05/28/22 at 1209, JEISON [facility] aspirin 81 mg Cap 05-27 17:46: 38 Yes Take by mouth. [facility] PNV 102-IRON-FO LATE-DHA ORAL 05-27 17:46: 38 Yes Take by mouth. [facility] misoprostol (CYTOTEC) quarter-tab let 25 mcg 05-27 16:00: 00 05-28 17:09 :05 No 25ug 25 mcg, Vaginal, Q4H ABX, First dose on Thu05/27/22 at 1100, Until Discontinu ed, Routine [facility] misoprostol (CYTOTEC) quarter-tab let 25 mcg 05-27 16:00: 00 05-27 17:54 :00 No 25ug 25 mcg, Oral, ONCE, 1 dose, On Thu05/27/22 at 1100, Routine [facility] FENTanyl PF (SUBLIMAZE (PF)) injection 100 mcg 05-27 15:51: 32 05-28 17:09 :05 No 100ug 100 mcg, Slow IV Push, Q1HPRN, Starting on Thu05/27/22 at 1051, Until Thu05/28/22 at 1209, Routine, contractio n pain without an epidural and SVE < 8 cm and Cat I strip [facility] carboprost (HEMABATE) injection 250 mcg 05-27 15:51: 19 05-28 15:55 :00 No 250ug 250 mcg, Intramuscu lar, Q2HPRN, 1 dose, Starting on Thu05/27/22 at 1051, Until Discontinu ed, Routine, PPH [facility] lactated ringers IV infusion 500 mL 05-27 15:51: 19 05-28 17:09 :08 No 500mL at 999 mL/hr, 500 mL, IV Infusion, PRN - SEE INSTRUCTIO NS, Starting on Thu05/27/22 at 1051, Until Thu05/28/22 at 1209, Routine [facility] D5W-LR IV infusion 1,000 mL 05-27 15:51: 19 05-28 17:09 :08 No 1000mL at 1-125 mL/hr, IV Infusion, TITRATE, Starting on Thu05/27/22 at 1051, Until Thu05/28/22 at 1209, Routine [facility] aspirin 81 mg Cap 05-18 18:49: 02 Yes Take by mouth. [facility] PNV 102-IRON-FO LATE-DHA ORAL 05-18 18:49: 02 Yes Take by mouth. [facility] aspirin 81 mg Cap 05-18 18:49: 02 Yes Take by mouth. [facility] PNV 102-IRON-FO LATE-DHA ORAL 05-18 18:49: 02 Yes Take by mouth. [facility] aspirin 81 mg Cap 05-18 18:49: 02 Yes Take by mouth. [facility] PNV 102-IRON-FO LATE-DHA ORAL 05-18 18:49: 02 Yes Take by mouth. [facility] aspirin 81 mg Cap 05-18 18:49: 02 Yes Take by mouth. [facility] PNV 102-IRON-FO LATE-DHA ORAL 05-18 18:49: 02 Yes Take by mouth. [facility] aspirin 81 mg Cap 05-18 18:49: 02 Yes Take by mouth. [facility] PNV 102-IRON-FO LATE-DHA ORAL 05-18 18:49: 02 Yes Take by mouth. [facility] aspirin 81 mg Cap 05-18 18:49: 02 Yes Take by mouth. [facility] PNV 102-IRON-FO LATE-DHA ORAL 05-18 18:49: 02 Yes Take by mouth. [facility] aspirin 81 mg Cap 05-18 18:49: 02 Yes Take by mouth. [facility] PNV 102-IRON-FO LATE-DHA ORAL 05-18 18:49: 02 Yes Take by mouth. [facility] terbutaline (BRETHINE) injection 0.25 mg 05-08 03:30: 00 05-08 03:22 :00 No .25mg 0.25 mg, Subcutaneo us, ONCE, 1 dose, On Thu05/07/22 at 2230, JEISON [facility] NaCl 0.9% (NS) bolus infusion 1,000 mL 05-08 01:55: 00 05-08 02:14 :48 No 1000mL at 999 mL/hr, 1,000 mL, IV Infusion, ONCE, 1 dose, On Thu05/07/22 at 2100, STAT [facility] metroNIDAZO LE (FLAGYL) tablet 500 mg 05-08 01:55: 00 05-08 02:00 :00 No 500mg 500 mg, Oral, ONCE, 1 dose, On Thu05/07/22 at 2100, JEISON
Re ason for Anti-Infec tive: Documented Infection< br>Documen stella Infection Site: Pelvic
Duration of Therapy: Other (see Comments) [facility] aspirin 81 mg Cap -30 00:13: 49 Yes Take by mouth. [facility] PNV 102-IRON-FO LATE-DHA ORAL 2022-0 05-08 00:13: 49 Yes Take by mouth. [facility] aspirin 81 mg Cap 2022-0 05-08 00:13: 49 Yes Take by mouth. [facility] PNV 102-IRON-FO LATE-DHA ORAL 2022-0 05-08 00:13: 49 Yes Take by mouth. [facility] aspirin 81 mg Cap 2022-0 05-08 00:13: 49 Yes Take by mouth. [facility] PNV 102-IRON-FO LATE-DHA ORAL 2022-0 05-08 00:13: 49 Yes Take by mouth. [facility] aspirin 81 mg Cap 2022-0 05-08 00:13: 49 Yes Take by mouth. [facility] PNV 102-IRON-FO LATE-DHA ORAL 2022-0 05-08 00:13: 49 Yes Take by mouth. [facility] aspirin 81 mg Cap 2022-0 05-08 00:13: 49 Yes Take by mouth. [facility] PNV 102-IRON-FO LATE-DHA ORAL 2022-0 05-08 00:13: 49 Yes Take by mouth. [facility] aspirin 81 mg Cap 2022-0 05-08 00:13: 49 Yes Take by mouth. [facility] PNV 102-IRON-FO LATE-DHA ORAL 2022-0 05-08 00:13: 49 Yes Take by mouth. [facility] metroNIDAZO LE (FLAGYL) 500 mg tablet 2022-0 30 00:00: 00 05-16 04:59 :00 No [id number] 500mg Take 1 tablet by mouth in the morning and 1 tablet in the evening. Do all this for 7 days. [facility] metroNIDAZO LE (FLAGYL) 500 mg tablet 3-0 30 00:00: 00 05-16 04:59 :00 No [id number] 500mg Take 1 tablet by mouth in the morning and 1 tablet in the evening. Do all this for 7 days. [facility] metroNIDAZO LE (FLAGYL) 500 mg tablet 05-08 00:00: 00 05-16 04:59 :00 No [id number] 500mg Take 1 tablet by mouth in the morning and 1 tablet in the evening. Do all this for 7 days. [facility] butalbital- acetaminoph en-caff (ESGIC) 50-325-40 mg tablet 1 tablet 04-17 01:00: 39 04-17 01:07 :00 No 1{tbl} 1 tablet, Oral, Q4HPRN, 1 dose, Starting on Thu04/16/22 at 1900, Until Thu04/16/22 at 1907, Routine, Headache per Dr. Whitehead [facility] aspirin 81 mg Cap 04-16 21:34: 24 Yes Take by mouth. [facility] PNV 102-IRON-FO LATE-DHA ORAL 04-16 21:34: 24 Yes Take by mouth. [facility] aspirin 81 mg Cap 04-16 21:34: 24 Yes Take by mouth. [facility] PNV 102-IRON-FO LATE-DHA ORAL 04-16 21:34: 24 Yes Take by mouth. [facility] metroNIDAZO LE 500 mg tablet 04-15 00:00: 00 Yes [id number] 500mg Take 1 tablet by mouth every 12 (twelve) hours. [facility] metroNIDAZO LE 500 mg tablet 04-15 00:00: 00 Yes [id number] 500mg Take 1 tablet by mouth every 12 (twelve) hours. [facility] metroNIDAZO LE 500 mg tablet 04-15 00:00: 00 Yes [id number] 500mg Take 1 tablet by mouth every 12 (twelve) hours. [facility] metroNIDAZO LE 500 mg tablet 04-15 00:00: 00 Yes [id number] 500mg Take 1 tablet by mouth every 12 (twelve) hours. [facility] metroNIDAZO LE 500 mg tablet 04-15 00:00: 00 Yes [id number] 500mg Take 1 tablet by mouth every 12 (twelve) hours. [facility] metroNIDAZO LE 500 mg tablet 04-15 00:00: 00 Yes [id number] 500mg Take 1 tablet by mouth every 12 (twelve) hours. [facility] metroNIDAZO LE 500 mg tablet 04-15 00:00: 00 05-08 00:00 :00 No [id number] 500mg Take 1 tablet by mouth every 12 (twelve) hours. [facility] acetaminoph en (TYLENOL) tablet 650 mg 04-09 00:21: 59 Yes 650mg 650 mg, Oral, Q6HPRN, Starting on Thu04/08/22 at 1821, Until Discontinu ed, Routine, Pain (scale 4-6) [facility] aspirin 81 mg Cap 04-08 20:07: 13 Yes Take by mouth. [facility] PNV 102-IRON-FO LATE-DHA ORAL 04-08 20:07: 13 Yes Take by mouth. [facility] aspirin 81 mg Cap 04-08 20:07: 13 Yes Take by mouth. [facility] PNV 102-IRON-FO LATE-DHA ORAL 04-08 20:07: 13 Yes Take by mouth. [facility] aspirin 81 mg Cap 04-08 20:07: 13 Yes Take by mouth. [facility] PNV 102-IRON-FO LATE-DHA ORAL 04-08 20:07: 13 Yes Take by mouth. [facility] aspirin 81 mg Cap 04-08 20:07: 13 Yes Take by mouth. [facility] PNV 102-IRON-FO LATE-DHA ORAL 04-08 20:07: 13 Yes Take by mouth. [facility] aspirin 81 mg Cap 04-08 20:07: 13 Yes Take by mouth. [facility] PNV 102-IRON-FO LATE-DHA ORAL 04-08 20:07: 13 Yes Take by mouth. [facility] aspirin 81 mg Cap 03-31 15:35: 47 Yes Take by mouth. [facility] PNV 102-IRON-FO LATE-DHA ORAL 03-31 15:35: 47 Yes Take by mouth. [facility] aspirin 81 mg Cap 03-31 15:35: 47 Yes Take by mouth. [facility] PNV 102-IRON-FO LATE-DHA ORAL 03-31 15:35: 47 Yes Take by mouth. [facility] Vital Signs Vital Name Observation Time Observation Value Comments S kris Systolic blood pressure 2022-07-04 14:01:00 121 mm[Hg] [facility] Diastolic blood pressure 2022-07-04 14:01:00 83 mm[Hg] [facility] Heart rate 2022-07-04 14:01:00 99 /min [facility] Body temperature 2022-07-04 14:01:00 36.72 Amy [facility] Body weight 2022-07-04 14:01:00 99.882 kg [facility] BMI 2022-07-04 14:01:00 40.28 kg/m2 [facility] Systolic blood pressure 2022-06-04 14:53:00 120 mm[Hg] [facility] Diastolic blood pressure 2022-06-04 14:53:00 82 mm[Hg] [facility] Heart rate 2022-06-04 14:53:00 97 /min [facility] Respiratory rate 2022-06-04 14:53:00 18 /min [facility] Body weight 2022-06-04 14:53:00 100.699 kg [facility] BMI 2022-06-04 14:53:00 40.60 kg/m2 [facility] acute hospital Systolic blood pressure 2022-05-30 12:45:00 119 mm[Hg] [facility] Diastolic blood pressure 2022-05-30 12:45:00 61 mm[Hg] [facility] Heart rate 2022-05-30 12:45:00 89 /min [facility] Body temperature 2022-05-30 12:45:00 36.94 Amy [facility] Respiratory rate 2022-05-30 12:45:00 17 /min [facility] Oxygen saturation in Arterial blood by Pulse oximetry 2022-05-30 12:45:00 99 /min [facility] Body height 2022-05-27 15:42:00 157.5 cm [facility] acute hospital Body weight 2022-05-27 15:42:00 111.131 kg [facility] acute hospital BMI 2022-05-27 15:42:00 44.81 kg/m2 General acute hospital Systolic blood pressure 2022-05-23 18:07:00 127 mm[Hg] [facility] Diastolic blood pressure 2022-05-23 18:07:00 84 mm[Hg] [facility] Heart rate 2022-05-23 18:07:00 98 /min [facility] Body temperature 2022-05-23 18:07:00 36.72 Amy [facility] Respiratory rate 2022-05-23 18:07:00 17 /min [facility] Body height 2022-05-23 18:07:00 157.5 cm [facility] acute hospital Body weight 2022-05-23 18:07:00 110.224 kg General acute hospital BMI 2022-05-23 18:07:00 44.45 kg/m2 General acute hospital Heart rate 2022-05-18 23:30:00 106 /min [facility] Oxygen saturation in Arterial blood by Pulse oximetry 2022-05-18 23:30:00 98 /min [facility] Systolic blood pressure 2022-05-18 22:40:00 133 mm[Hg] [facility] Diastolic blood pressure 2022-05-18 22:40:00 65 mm[Hg] [facility] Body temperature 2022-05-18 22:40:00 36.61 Amy [facility] Respiratory rate 2022-05-18 22:40:00 18 /min [facility] Body height 2022-05-18 22:20:00 157.5 cm [facility] Body weight 2022-05-18 22:20:00 109.861 kg Univ [facility] BMI 2022-05-18 22:20:00 44.30 kg/m2 Univ [facility] Systolic blood pressure 2022-05-15 15:10:00 111 mm[Hg] [facility] Diastolic blood pressure 2022-05-15 15:10:00 76 mm[Hg] [facility] Heart rate 2022-05-15 15:10:00 106 /min [facility] Body temperature 2022-05-15 15:10:00 36.83 Amy [facility] Respiratory rate 2022-05-15 15:10:00 18 /min [facility] Body height 2022-05-15 15:10:00 152.4 cm Univ [facility] Body weight 2022-05-15 15:10:00 107.049 kg Univ [facility] BMI 2022-05-15 15:10:00 46.09 kg/m2 Univ [facility] Systolic blood pressure 2022-05-08 20:09:00 127 mm[Hg] [facility] Diastolic blood pressure 2022-05-08 20:09:00 87 mm[Hg] [facility] Heart rate 2022-05-08 20:09:00 125 /min [facility] Body temperature 2022-05-08 20:09:00 36.67 Amy [facility] Body weight 2022-05-08 20:09:00 106.777 kg Univ [facility] BMI 2022-05-08 20:09:00 45.97 kg/m2 Univ [facility] Heart rate 2022-05-08 04:51:00 113 /min [facility] Oxygen saturation in Arterial blood by Pulse oximetry 2022-05-08 04:51:00 92 /min [facility] Systolic blood pressure 2022-05-08 04:07:00 135 mm[Hg] [facility] Diastolic blood pressure 2022-05-08 04:07:00 85 mm[Hg] [facility] Body temperature 2022-05-08 00:15:00 36.72 Amy [facility] Respiratory rate 2022-05-08 00:15:00 16 /min [facility] Body weight 2022-05-07 23:30:00 105.87 kg General acute hospital BMI 2022-05-07 23:30:00 45.58 kg/m2 General acute hospital Systolic blood pressure 2022-04-29 18:53:00 124 mm[Hg] [facility] Diastolic blood pressure 2022-04-29 18:53:00 90 mm[Hg] [facility] Heart rate 2022-04-29 18:53:00 101 /min [facility] Body temperature 2022-04-29 18:53:00 36.67 Amy [facility] Body weight 2022-04-29 18:53:00 104.055 kg General acute hospital BMI 2022-04-29 18:53:00 44.80 kg/m2 General acute hospital Heart rate 2022-04-17 03:15:00 83 /min [facility] Oxygen saturation in Arterial blood by Pulse oximetry 2022-04-17 03:15:00 97 /min [facility] Systolic blood pressure 2022-04-17 03:01:00 129 mm[Hg] [facility] Diastolic blood pressure 2022-04-17 03:01:00 64 mm[Hg] [facility] Respiratory rate 2022-04-17 01:07:00 17 /min [facility] Body temperature 2022-04-17 00:23:00 36.83 Amy [facility] Body weight 2022-04-17 00:00:00 102.331 kg General acute hospital BMI 2022-04-17 00:00:00 44.06 kg/m2 General acute hospital Systolic blood pressure 2022-04-14 19:57:00 118 mm[Hg] [facility] Diastolic blood pressure 2022-04-14 19:57:00 79 mm[Hg] [facility] Heart rate 2022-04-14 19:57:00 90 /min [facility] Body temperature 2022-04-14 19:57:00 36.67 Amy [facility] Respiratory rate 2022-04-14 19:57:00 18 /min [facility] Body height 2022-04-14 19:57:00 152.4 cm [facility] acute hospital Body weight 2022-04-14 19:57:00 101.878 kg General acute hospital BMI 2022-04-14 19:57:00 43.86 kg/m2 General acute hospital Oxygen saturation in Arterial blood by Pulse oximetry 2022-04-14 19:57:00 99 /min [facility] Heart rate 2022-04-09 01:45:00 88 /min [facility] Oxygen saturation in Arterial blood by Pulse oximetry 2022-04-09 01:45:00 100 /min [facility] Systolic blood pressure 2022-04-09 01:00:00 119 mm[Hg] [facility] Diastolic blood pressure 2022-04-09 01:00:00 64 mm[Hg] [facility] Body temperature 2022-04-09 00:55:00 37.11 Amy [facility] Respiratory rate 2022-04-09 00:55:00 16 /min [facility] Body height 2022-04-08 23:40:00 152.4 cm [facility] acute hospital Body weight 2022-04-08 23:40:00 101.016 kg General acute hospital BMI 2022-04-08 23:40:00 43.49 kg/m2 General acute hospital Systolic blood pressure 2022-03-31 21:31:00 124 mm[Hg] [facility] Diastolic blood pressure 2022-03-31 21:31:00 84 mm[Hg] [facility] Heart rate 2022-03-31 21:31:00 80 /min [facility] Body temperature 2022-03-31 21:31:00 36.72 Amy [facility] Respiratory rate 2022-03-31 21:31:00 18 /min [facility] Body height 2022-03-31 21:31:00 152.4 cm [facility] acute hospital Body weight 2022-03-31 21:31:00 99.791 kg General acute hospital BMI 2022-03-31 21:31:00 42.97 kg/m2 General acute hospital Heart rate 2022-03-17 21:15:00 104 /min [facility] Oxygen saturation in Arterial blood by Pulse oximetry 2022-03-17 21:15:00 97 /min [facility] Systolic blood pressure 2022-03-17 21:00:00 114 mm[Hg] [facility] Diastolic blood pressure 2022-03-17 21:00:00 73 mm[Hg] [facility] Respiratory rate 2022-03-17 20:12:00 18 /min [facility] Body temperature 2022-03-17 18:26:00 36.94 Amy [facility] Body height 2022-03-17 18:26:00 152.4 cm [facility] acute hospital Body weight 2022-03-17 18:26:00 92.987 kg General acute hospital BMI 2022-03-17 18:26:00 40.04 kg/m2 General acute hospital Procedures Procedure Date / Time Performed Performing Clinician Source SGOT (ASPARTATE AMINO TRANSFER) 2022-05-29 13:23:00 Arden Whitehead [facility] CREATININE 2022-05-29 13:23:00 Arden Whitehead [facility] ALANINE AMINO TRANSFERASE(SGPT 2022-05-29 13:23:00 Arden Whitehead [facility] LACTATE DEHYDROGENASE 2022-05-29 13:23:00 Arden Whitehead [facility] URIC ACID 2022-05-29 13:23:00 Arden Whitehead [facility] MAGNESIUM 2022-05-29 13:23:00 Arden Whitehead [facility] CBC WITH DIFF 2022-05-29 13:23:00 Arden Whitehead [facility] CBC WITH DIFF 2022-05-29 09:10:00 Arden Whitehead [facility] URINALYSIS 2022-05-29 04:31:00 Arden Whitehead [facility] PROTEIN CREAT RATIO URINE RANDOM 2022-05-29 04:31:00 Arden Whitehead [facility] SGOT (ASPARTATE AMINO TRANSFER) 2022-05-29 03:55:00 [facility]head[facility] CREATININE 2022-05-29 03:55:00 Arden Whitehead [facility] ALANINE AMINO TRANSFERASE(SGPT 2022-05-29 03:55:00 [facility] 2022-05-29 03:55:00 Arden Whitehead [facility] URIC ACID 2022-05-29 03:55:00 Arden Whitehead [facility] CBC WITH DIFF 2022-05-29 03:55:00 Arden Whitehead [facility] SGOT (ASPARTATE AMINO TRANSFER) 2022-05-28 14:05:00 Arden Whitehead [facility] CREATININE 2022-05-28 14:05:00 Arden Whitehead [facility] ALANINE AMINO TRANSFERASE(SGPT 2022-05-28 14:05:00 [facility]GENASE 2022-05-28 14:05:00 WhiteheadJudygin burrows [facility] URIC ACID 2022-05-28 14:05:00 Arden Whitehead [facility] CBC WITH DIFF 2022-05-28 14:05:00 Arden Whitehead [facility] URINALYSIS 2022-05-28 14:05:00 Arden Whitehead [facility] PROTEIN CREAT RATIO URINE RANDOM 2022-05-28 14:05:00 Louis [facility] CENTRAL NEURAXIAL BLOCK 2022-05-28 01:37:00 Bart Braun [facility] HB ABO GROUPING 2022-05-27 16:24:00 Louis Raden [facility] RHO (D) IMMUNE GLOBULIN 2022-05-27 16:24:00 WhiteheadArden Rodolfo [facility] HOSPITAL ADMISSION 2022-05-27 05:01:00 Doctor Un assigned, [place] [facility] ASSIGNMENT OF BENEFITS 2022-05-23 19:30:23 Docto r Unassigned, [place] [facility] NON-STRESS TEST 2022-05-23 18:57:00 LouisArden Michelle burrows [facility] POCT URINALYSIS W/O SPECIFIC GRAVITY 2022-05-23 00:00:00 LouisJudygin Reynolds [facility] ASSIGNMENT OF BENEFITS 2022-05-18 22:15:54 Docto r Unassigned, [place] [facility] CONSENT/REFUSAL FOR DIAGNOSIS AND TREATMENT 2022-05-18 22:10:09 Doctor Unassigned, [place] [facility] POCT URINALYSIS W/O SPECIFIC GRAVITY 2022-05-15 00:00:00 Louis Arden Reynolds [facility] >14 WEEKS US LIMITED 2022-05-08 20:30:01 Arden Whitehead [facility] URINALYSIS 2022-05-08 00:38:00 Arden Whitehead [facility] ADC CLC OR LCC ONLY - WET PREP 2022-05-08 00:38:00 Arden Whitehead [facility] POCT URINALYSIS W/O SPECIFIC GRAVITY 2022-05-08 00:00:00 LouisJudygin Reynolds [facility] ASSIGNMENT OF BENEFITS 2022-05-07 23:22:41 Docto r Unassigned, [place] [facility] CONSENT/REFUSAL FOR DIAGNOSIS AND TREATMENT 2022-05-07 23:19:18 Doctor Unassigned, [place] [facility] POCT URINALYSIS W/O SPECIFIC GRAVITY 2022-04-29 00:00:00 Arden Whitehead [facility] NOTICE OF PRIVACY PRACTICES 2022-04-16 23:55:48 Doctor Unassigned, [place] [facility] ASSIGNMENT OF BENEFITS 2022-04-16 23:55:12 Docto r Unassigned, [place] [facility] POCT URINALYSIS W/O SPECIFIC GRAVITY 2022-04-14 00:00:00 Arden Whitehead [facility] ALANINE AMINO TRANSFERASE(SGPT 2022-04-09 00:33:00 Adum, Trisha Miller [facility] LACTATE DEHYDROGENASE 2022-04-09 00:33:00 Adum, Trisha Miller [facility] URIC ACID 2022-04-09 00:33:00 Adum, Trisha Miller [facility] CBC WITH DIFF 2022-04-09 00:33:00 Adum, Trisha Miller [facility] URINALYSIS 2022-04-09 00:33:00 Adum, Trisha Miller [facility] HB ABO GROUPING 2022-04-09 00:33:00 Adum, Trisha Chong [facility] PROTEIN CREAT RATIO URINE RANDOM 2022-04-09 00:33:00 Adum, Trisha Miller [facility] SGOT (ASPARTATE AMINO TRANSFER) 2022-04-09 00:33:00 Adum, Trisha Miller [facility] CREATININE 2022-04-09 00:33:00 Adum, Trisha Miller [facility] ASSIGNMENT OF BENEFITS 2022-04-08 23:36:16 Docto r Unassigned, [place] [facility] CONSENT/REFUSAL FOR DIAGNOSIS AND TREATMENT 2022-04-08 23:35:38 Doctor Unassigned, [place] [facility] ASSIGNMENT OF BENEFITS 2022-03-31 20:12:54 Docto r Unassigned, [place] [facility] POCT URINALYSIS W/O SPECIFIC GRAVITY 2022-03-31 00:00:00 Arden Whitehead [facility] ASSIGNMENT OF BENEFITS 2022-03-17 18:20:15 Docto r Unassigned, [place] [facility] CONSENT/REFUSAL FOR DIAGNOSIS AND TREATMENT 2022-03-17 18:17:10 Doctor Unassigned, [place] [facility] Encounters Start Date/Time End Date/Time Encounter Type Admission Type Attending [facility] Care Facility Care Department Encounter ID Source 2022-12-22 09:14:47 Outpatient X [facility] [id number] [facility] 2023-01-05 08:00:00 2023-01-05 08:00:00 Outpatient ARDEN AGUILARMB [facility] [id number] [facility] 2022-07-04 09:00:00 2022-07-04 09:15:00 Routine Visit Aletha Zarate [facility] 1.2.840.114 350.1.13.10 4.2.7.2.686 [id number] [facility] 2022-07-04 09:00:00 2022-07-04 09:00:00 Outpatient R ALETHA ZARATE [facility] [id number] [facility] 2022-06-04 10:00:00 2022-06-04 10:15:00 Nurse Visit Nurse, [facility] Arden Whitehead [facility] 1.2.840.114 350.1.13.10 4.2.7.2.686 [id number] [facility] 2022-06-04 10:00:00 2022-06-04 10:00:00 Outpatient R ARDEN WHITEHEAD [facility] [id number] [facility] 2022-06-04 00:00:00 2022-06-04 00:00:00 Telephone Arden Whitehead [facility] 1.2.840.114 350.1.13.10 4.2.7.2.686 [id number] [facility] 2022-05-27 10:11:00 2022-05-30 11:00:00 Inpatient P ARDEN WHITEHEAD [facility] [id number] [facility] 2022-05-27 10:11:00 2022-05-30 11:00:00 Hospital Encounter Arden Whtiehead [facility] 1.2.840.114 350.1.13.10 4.2.7.2.686 [id number] [facility] 2022-05-27 20:37:00 2022-05-28 13:41:00 Anesthesia Event Bart Braun Michael Wayne [facility] 1.2840.114 350.1.13.10 4.2.7.2.686 [id number] [facility] 2022-05-27 17:47:41 2022-05-27 17:47:41 Anesthesia Event Gregg Carrillo [facility] 1.2.840.114 350.1.13.10 4.2.7.2.686 [id number] [facility] 2022-05-27 00:00:00 2022-05-27 00:00:00 Orders Only Doctor Unassigned, [place] [facility] 1.2840.114 350.1.13.10 4.2.7.2.686 [id number] [facility] 2022-05-26 08:30:00 2022-05-26 08:45:00 Education Rep Visit Pob, Adc Lab Main Arden Whitehead [facility] PROFESSIO [facility] 1.0.114 350.1.13.10 4.2.7.2.686 [id number] [facility] 2022-05-26 08:30:00 2022-05-26 08:30:00 Outpatient R ARDEN WHITEHEAD [facility] [id number] [facility] 2022-05-23 08:30:00 2022-05-23 08:45:00 Routine Visit Arden Whitehead [facility] 1.114 350.1.13.10 4.2.7.2.686 [id number] [facility] 2022-05-23 08:30:00 2022-05-23 08:30:00 Outpatient R ARDEN WHITEHEAD [facility] [id number] [facility] 2022-05-23 00:00:00 2022-05-23 00:00:00 Orders Only Doctor Unassigned, [place] [facility] 1.2.840.114 350.1.13.10 4.2.7.2.686 [id number] [facility] 2022-05-18 17:25:00 2022-05-18 18:35:00 Outpatient X WOLF-ORALIA S, LEAH WOLF-ORALIA S, LEAH [facility] [id number] [facility] 2022-05-18 17:25:00 2022-05-18 18:35:00 Emergency Wolf-Oralia s, Leah [facility] 1.2840.114 350.1.13.10 4.2.7.2.686 [id number] [facility] 2022-05-18 00:00:00 2022-05-18 00:00:00 Orders Only Doctor Unassigned, [place] [facility] 1.2840.114 350.1.13.10 4.2.7.2.686 [id number] [facility] 2022-05-16 08:30:00 2022-05-16 08:45:00 Education Rep Visit 2, Adc Lab Louis Arden [facility] 1.2.840.114 350.1.13.10 4.2.7.2.686 [id number] [facility] 2022-05-16 08:30:00 2022-05-16 08:30:00 Outpatient R ARDEN WHITEHEAD [facility] [id number] [facility] 2022-05-15 09:45:00 2022-05-15 10:23:45 Outpatient R ARDEN WHITEHEAD [facility] [id number] [facility] 2022-05-15 09:45:00 2022-05-15 10:23:45 Routine Visit Arden Whitehead [facility] 1.2840.114 350.1.13.10 4.2.7.2.686 [id number] [facility] 2022-05-14 09:30:00 2022-05-14 10:15:00 Education Rep Visit 1, [facility] Room Kelby Beena terriJohn Paul [employer] PROJECT MANAGER [facility] 1.2.840.114 350.1.13.10 4.2.7.2.686 [id number] [facility] 2022-05-14 09:30:00 2022-05-14 09:30:00 Outpatient P SWEET BEENA TerriJOHN PAUL [facility] [id number] [facility] 2022-05-08 15:00:00 2022-05-08 15:15:00 Routine Visit Arden Whitehead [facility] 1..840.114 350.1.13.10 4.2.7.2.686 [id number] [facility] 2022-05-08 15:00:00 2022-05-08 15:00:00 Outpatient R ARDEN WHITEHEAD [facility] [id number] [facility] 2022-05-07 18:36:00 2022-05-08 00:02:00 Outpatient P ARDEN WHITEHEAD [facility] [id number] [facility] 2022-05-07 18:36:00 2022-05-08 00:02:00 Hospital Encounter Arden Whitehead [facility] 1..840.114 350.1.13.10 4.2.7.2.686 [id number] [facility] 2022-04-29 13:30:00 2022-04-29 14:52:58 Outpatient R ARDEN WHITEHEAD [facility] [id number] [facility] 2022-04-29 13:30:00 2022-04-29 14:52:58 Routine Visit Arden Whitehead [facility] PROFESSIO [facility] 1.2.840.114 350.1.13.10 4.2.7.2.686 [id number] [facility] 2022-04-16 18:04:00 2022-04-16 21:25:00 Outpatient X ARDEN WHITEHEAD [facility] [id number] [facility] 2022-04-16 18:04:00 2022-04-16 21:25:00 Emergency Arden Whitehead [facility] 1.2.840.114 350.1.13.10 4.2.7.2.686 [id number] [facility] 2022-04-16 00:00:00 2022-04-16 00:00:00 Telephone Arden Whitehead [facility] 1.2.840.114 350.1.13.10 4.2.7.2.686 [id number] [facility] 2022-04-16 00:00:00 2022-04-16 00:00:00 Orders Only Doctor Unassigned, [place] [facility] 1.2.840.114 350.1.13.10 4.2.7.2.686 [id number] [facility] 2022-04-15 00:00:00 2022-04-15 00:00:00 Case Management Aletha Zarate [facility] 1.2.840.114 350.1.13.10 4.2.7.2.686 [id number] [facility] 2022-04-14 13:30:00 2022-04-14 14:11:58 Routine Visit Arden Whitehead [facility] 1.2.840.114 350.1.13.10 4.2.7.2.686 [id number] [facility] 2022-04-14 13:30:00 2022-04-14 14:11:58 Outpatient R ARDEN WHITEHEAD [facility] [id number] [facility] 2022-04-08 17:43:00 2022-04-08 19:53:00 Outpatient X ARDEN WHITEHEAD [facility] [id number] [facility] 2022-04-08 17:43:00 2022-04-08 19:53:00 Emergency Arden Whitehead [facility] 1.0.114 350.1.13.10 4.2.7.2.686 [id number] [facility] 2022-04-08 00:00:00 2022-04-08 00:00:00 Telephone Arden Whitehead [facility] 1..114 350.1.13.10 4.2.7.2.686 [id number] [facility] 2022-03-31 14:30:00 2022-03-31 16:00:13 Outpatient R ARDEN WHITEHEAD [facility] [id number] [facility] 2022-03-31 14:30:00 2022-03-31 16:00:13 Initial Visit Arden Whitehead [facility] 1..114 350.1.13.10 4.2.7.2.686 [id number] [facility] 2022-03-31 00:00:00 2022-03-31 00:00:00 Orders Only Doctor Unassigned, [place] [facility] 1.2.114 350.1.13.10 4.2.7.2.686 [id number] [facility] 2022-03-17 12:34:00 2022-03-17 15:55:00 Emergency Arden Whitehead [facility] 1.20.114 350.1.13.10 4.2.7.2.686 [id number] [facility] 2022-03-17 12:34:00 2022-03-17 15:55:00 Outpatient X ARDEN WHITEHEAD [facility] [id number] [facility] 2022-03-17 00:00:00 2022-03-17 00:00:00 Orders Only Doctor Unassigned, [place] [facility] 1.2.840.114 350.1.13.10 4.2.7.2.686 [id number] [facility] Results Test Description Test Time Test Comments Results Result Co mments Source [facility] [id number] 15:06:45* Test Item Value Reference Range Interpretation Comme [facility] URIC ACID (test code = 7880840695) 4.6 mg/dL 2.9-6.0 Lab Interpretation (test cod e = 83513-4) Normal [facility] [id number] 15:06:45* Test Item Value Reference Range Interpretation Comme [facility] LDH (test code = 4413784359) 137 U/L 120-246 Lab Interpretation (test cod e = 66732-0) Normal [facility] Transferase (SGPT)2022-05-28 15:06:44* Test Item Value Reference Range Interpretation Comme [facility] ALTv (test code = 1742-6) 16 U/L 5-35 Lab Interpretation (test cod e = 12886-7) Normal [facility] [id number] 15:06:24* Test Item Value Reference Range Interpretation Comme [facility] CREATININE (test code = 7243167585) 0.57 mg/dL 0.50-1.04 eGFR (test code = 4060875396) 129.2 mL/min/1.73m2 JODI (test code = JODI) Association of [...] or urine or abnormalities in imaging tests). [facility] (Asparate Amino Transfer)2022-05-28 15:06:24* Test Item Value Reference Range Interpretation Comme nts AST(SGOT) (test code = 2502393902) 22 U/L 13-40 Lab Interpretation (test cod e = 72197-9) Normal [facility] with [id number] 14:32:58* Test Item Value Reference Range Interpretation Comme nts WBC (test code = 6690-2) 14.68 See_Comment H [Automated message] The system which generated this result transmitted reference range: 4.30 - 11.10 10*3/?L. The reference range was not used to interpret this result as normal/abnormal. RBC (test code = 789-8) 4.02 See_Comment [Automated message] The system which generated this result transmitted reference range: 3.93 - 5.25 10*6/?L. The reference range was not used to interpret this result as normal/abnormal. HGB (test code = 718-7) 13.0 g/dL 11.6-15.0 HCT (test code = 4544-3) 38.6 % 35.7-45.2 MCV (test code = 787-2) 96.0 fL 80.6-95.5 H MCH (test code = 785-6) 32.3 pg 25.9-32.8 MCHC (test code = 786-4) 33.7 g/dL 31.6-35.1 RDW-SD (test code = 97017-5) 48.6 fL 39.0-49.9 RDW-CV (test code = 788-0) 13.8 % 12.0-15.5 PLT (test code = 777-3) 197 See_Comment [Automated message] The system which generated this result transmitted reference range: 166 - 358 10*3/?L. The reference range was not used to interpret this result as normal/abnormal. MPV (test code = 60561-0) 11.3 fL 9.5-12.9 NRBC/100 WBC (test code = 7575068209) 0.0 See_Comment [Automated message] The system which generated this result transmitted reference range: 0.0 - 10.0 /100 WBCs. The reference range was not used to interpret this result as normal/abnormal. NRBC x10^3 (test code = 4569398257) See_Comment [Automated message] The system which generated this result transmitted reference range: 10*3/?L. The reference range was not used to interpret this result as normal/abnormal. GRAN MAT (NEUT) % (test code = 770-8) 89.2 % IMM GRAN % (test code = 0974121430) 0.70 % LYMPH % (test code = 736-9) 5.0 % MONO % (test code = 5905-5) 4.8 % EOS % (test code = 713-8) 0.1 % BASO % (test code = 706-2) 0.2 % GRAN MAT x10^3(ANC) (test code = 4436938032) 13.09 10*3/uL 1.88-7.09 H IMM GRAN x10^3 (test code = 6232091048) 0.10 10*3/uL 0.00-0.06 H LYMPH x10^3 (test code = 731-0) 0.74 10*3/uL 1.32-3.29 L MONO x10^3 (test code = 742-7) 0.71 10*3/uL 0.33-0.92 EOS x10^3 (test code = 711-2) 0.03-0.39 L BASO x10^3 (test code = 704-7) 0.03 10*3/uL 0.01-0.07 Lab Interpretation (test code = 72388-7) Abnormal [facility] URINALYSIS W/O SPECIFIC [id number] 18:04:00* Test Item Value Reference Range Interpretation Comme nts POCT PH U (test code = 3254) n/a 5-8 POCT U LEUK EST (test code = 3263) n/a Negative - Negative POCT U NIT (test code = 3262) n/a Negative - Negati ve POCT U PROT (test code = 3259) negative Negative - Negat alexis POCT U GLU (test code = 3256) negative Negative - Negati ve POCT U KETONE (test code = 3258) n/a Negative - Neg ative POCT U BLD (test code = 3257) n/a Negative - Negati ve [facility] URINALYSIS W/O SPECIFIC [id number] 15:09:00* Test Item Value Reference Range Interpretation Comme nts POCT PH U (test code = 3254) n/a 5-8 POCT U LEUK EST (test code = 3263) n/a Negative - N egative POCT U NIT (test code = 3262) n/a Negative - Negati ve POCT U PROT (test code = 3259) ++ Negative - Negat alexis POCT U GLU (test code = 3256) Normal Negative - Negati ve POCT U KETONE (test code = 3258) n/a Negative - Neg ative POCT U BLD (test code = 3257) n/a Negative - Negati ve [facility] URINALYSIS W/O SPECIFIC [id number] 20:10:00* Test Item Value Reference Range Interpretation Comme nts POCT PH U (test code = 3254) n/a 5-8 POCT U LEUK EST (test code = 3263) n/a Negative - Negative POCT U NIT (test code = 3262) na/ Negative - Negati ve POCT U PROT (test code = 3259) Negative Negative - Negat alexis POCT U GLU (test code = 3256) Normal Negative - Negati ve POCT U KETONE (test code = 3258) n/a Negative - Neg ative POCT U BLD (test code = 3257) n/a Negative - Negati ve [facility] W/O SPECIFIC [id number] 19:02:00* Test Item Value Reference Range Interpretation Comme nts POCT PH U (test code = 3254) 5 mg/dl 5-8 POCT U LEUK EST (test code = 3263) Trace Negative - Negative POCT U NIT (test code = 3262) Negative Negative - Negati ve POCT U PROT (test code = 3259) Negative Negative - Negat alexis POCT U GLU (test code = 3256) Normal Negative - Negati ve POCT U KETONE (test code = 3258) Negative Negative - Neg ative POCT U BLD (test code = 3257) Negative Negative - Negati ve [facility] W/O SPECIFIC [id number] 19:54:00* Test Item Value Reference Range Interpretation Comme nts POCT PH U (test code = 3254) n/a 5-8 POCT U LEUK EST (test code = 3263) n/a Negative - Negative POCT U NIT (test code = 3262) n/a Negative - Negati ve POCT U PROT (test code = 3259) negative Negative - Negat alexis POCT U GLU (test code = 3256) negative Negative - Negati ve POCT U KETONE (test code = 3258) n/a Negative - Neg ative POCT U BLD (test code = 3257) n/a Negative - Negati ve [facility]villeType and Screen - ONCE [id number] 01:27:30* Test Item Value Reference Range Interpretation Comme nts ABO & RH (test code = 20) O Positive Performed at [facility] Laboratory Services - [facility] Blood [address] [place] [id number] Free: [phone] No. [id number] IAT (test code = 1185) Negative Performed at [facility] Laboratory Services - [facility] Blood [address] [place] [id number] Free: [phone] No. [id number] [facility] W/O SPECIFIC [id number] 21:26:00* Test Item Value Reference Range Interpretation Comme nts POCT PH U (test code = 3254) n/a 5-8 POCT U LEUK EST (test code = 3263) n/a Negative - Negative POCT U NIT (test code = 3262) n/a Negative - Negati ve POCT U PROT (test code = 3259) negative Negative - Negat alexis POCT U GLU (test code = 3256) negative Negative - Negati ve POCT U KETONE (test code = 3258) n/a Negative - Neg ative POCT U BLD (test code = 3257) n/a Negative - Negati ve [facility]"
[2023-03-10 19:42] LABS: Hematocrit 41.7 % (36.0-45.0); Lymphocytes % 24.6 % (15.3-44.8); MCV 94.2 fL (80-100); MPV 7.9 fL (7.6-11.3); Platelets 344 thou/uL (152-406); RBC Red Blood Cell Count 4.43 M/uL (3.86-4.86)
[2023-03-10 19:49] LABS: BUN Blood Urea Nitrogen 7 mg/dL (7-18); Bicarbonate 28 mEq/L (21-32); Glomerular Filtration Rate 113 ml/min (=/>90); Glucose Level 108 mg/dL (74-106); Sodium Level 137 mEq/L (136-145)
[2023-03-10 19:50] LABS: Troponin High Sensitivity < 3.0 pg/mL (<58.9)
--- NOTE | 2023-03-10 19:58 | RAD REPORT ---
EXAM DESCRIPTION: RAD - Chest Single View - 03/10/2023 7:42 pm CLINICAL HISTORY: CHEST PAIN Chest pain. COMPARISON: Chest Single View dated 05/09/2018No comparisons FINDINGS: Portable technique limits examination quality. The lungs are grossly clear. The heart is normal in size. No displaced fractures. IMPRESSION: No acute intrathoracic process suspected.
--- NOTE | 2023-03-10 20:48 | EDPHYS ---
Physician Documentation [facility] Name: Mike Hernandez Age: 27 yrs Sex: Female : 1995 Arrival Date: 03/10/2023 Time: 18:34 Bed 11 Private MD: ED Physician Herson Veliz HPI: 03/10 22:10 This 27 yrs old Female presents to ER via Ambulatory with complaints of Chest Pain, kb Migraine. 22:10 Patient is a 27-year-old female who presents for migraine that started 4 days ago. kb States this migraine feels similar to previous migraines but this time she is also having chest pain. Reports nausea and vomiting as well.. Historical: - Allergies: 18:57 ACYCLOVIR AND DERIVATIVES; tl4 18:57 Adhesives; tl4 - Home Meds: 18:57 None [Active]; tl4 - PMHx: 18:57 Endometriosis; tl4 - PSHx: 18:57 Appendectomy; foot sx; tl4 - Immunization history:: Adult Immunizations unknown. - Social history:: Smoking status: Patient denies any tobacco usage or history of. ROS: 22:09 Constitutional: Negative for fever, chills, and weight loss, kb 22:09 Cardiovascular: Positive for chest pain, 22:09 Abdomen/GI: Positive for nausea and vomiting, Negative for abdominal pain, 22:09 Neuro: Positive for headache, 22:09 All other systems are negative, Exam: 22:09 Constitutional: This is a well developed, well nourished patient who is awake, alert, kb and in no acute distress. Head/Face: Normocephalic, atraumatic. ENT: Moist Mucous membranes Cardiovascular: Regular rate Respiratory: Respirations even and unlabored. No increased work of breathing. Talking in full sentences Abdomen/GI: Soft, non-tender. No distention Skin: Warm, dry with normal turgor. Normal color. MS/ Extremity: Pulses equal, no cyanosis. Neurovascular intact. Full, normal range of motion. Neuro: Awake and alert, GCS 15, oriented to person, place, time, and situation. Moves all extremities. Normal gait. Vital Signs: 18:54 BP 132 / 91; Pulse 88; Resp 16; Temp 98.1(O); Pulse Ox 100% on R/A; Weight 99.79 kg; tl4 Height 5 ft. 2 in. ; Pain 10/10; 18:54 Body Mass Index 40.24 (99.79 kg, 157.48 cm) tl4 18:54 Pain Scale: Adult tl4 [place] Coma Score: 22:10 Eye Response: spontaneous(4). Motor Response: obeys commands(6). Verbal Response: kb oriented(5). Total: 15. MDM: 18:55 Patient medically screened. kb 22:10 Differential diagnosis: cluster headache, migraine, tension headache, Abnormal EKG. kb Data reviewed: vital signs, nurses notes. Counseling: I had a detailed discussion with the patient and/or guardian regarding the historical points, exam findings, and any diagnostic results supporting the discharge/admit diagnosis, lab results, radiology results, the need for outpatient follow up, a family practitioner, to return to the emergency department if symptoms worsen or persist or if there are any questions or concerns that arise at home. Response to treatment: the patient's symptoms have resolved after treatment, the patient's pain is gone. 03/10 18:59 Order name: Basic Metabolic Panel; Complete Time: 19:56 kb 03/10 18:59 Order name: CBC with Diff; Complete Time: 20:11 kb 03/10 18:59 Order name: Troponin HS; Complete Time: 19:56 kb 03/10 18:59 Order name: XRAY Chest (1 view); Complete Time: 20:11 kb 03/10 18:59 Order name: EKG; Complete Time: 19:00 kb 03/10 18:59 Order name: Cardiac monitoring; Complete Time: 20:09 kb 03/10 18:59 Order name: EKG - Nurse/Tech; Complete Time: 19:30 kb 03/10 18:59 Order name: IV Saline Lock; Complete Time: 19:30 kb 03/10 18:59 Order name: Labs collected and sent; Complete Time: 19:30 kb 03/10 18:59 Order name: O2 Per Protocol; Complete Time: 20:09 kb 03/10 18:59 Order name: O2 Sat Monitoring; Complete Time: 20:09 kb Administered Medications: 20:08 Drug: NS 0.9% IV 1000 ml IV at 1000 ml once Route: IV; Rate: 1000 ml; Site: right kc6 antecubital; 21:13 Follow up: Response: No adverse reaction; IV Status: Completed infusion; IV Intake: kc6 1000ml 20:08 Drug: metoCLOPramide IVP 10 mg IVP once; over 1 to 2 minutes Route: IVP; Site: right kc6 antecubital; 21:13 Follow up: Response: No adverse reaction kc6 20:08 Drug: Ketorolac IVP 15 mg IVP once Route: IVP; Site: right antecubital; kc6 21:13 Follow up: Response: No adverse reaction; Pain is decreased kc6 20:08 Drug: diphenhydrAMINE IVP 12.5 mg IVP once Route: IVP; Site: right antecubital; kc6 21:13 Follow up: Response: No adverse reaction kc6 20:09 Drug: Decadron - Dexamethasone IVP 10 mg IVP once Route: IVP; Site: right antecubital; kc6 21:13 Follow up: Response: No adverse reaction kc6 Disposition Summary: 03/10/23 20:47 Discharge Ordered Notes: Location: Home kb Condition: Stable kb Diagnosis - Migraine without aura, not intractable kb Followup: kb - With: Emergency Department - When: As needed - Reason: Worsening of condition Followup: kb - With: Private Physician - When: 2 - 3 days - Reason: Recheck today's complaints, Continuance of care, Re-evaluation by your physician Discharge Instructions: - Discharge Summary Sheet kb - Migraine Headache, [id number] kb Forms: - Medication Reconciliation Form kb - Thank You Letter kb - Antibiotic Education kb - Prescription Opioid Use kb - Patient Portal Instructions kb - Leadership Thank You Letter kb Signatures: Dispatcher [employer] Viry Martin, IMELDA LONDON-Norma Jha RN RN kc6 LogAustin salgado tl4 Corrections: (The following items were deleted from the chart) 18:58 18:57 Home Meds: Unable to obtain; tl4 tl4
--- NOTE | 2023-03-10 20:48 | ER ---
Nurse's Notes [facility] Name: Mike Hernandez Age: 27 yrs Sex: Female : 1995 Arrival Date: 03/10/2023 Time: 18:34 Bed 11 Private MD: Diagnosis: Migraine without aura, not intractable Presentation: 03/10 18:54 Chief complaint: Patient states: Pt c/o migraine headache with dizziness, "seeing tl4 spots", nausea x 4 days. No relief with normal migraine medications. Pt states she developed chest tightness today. No SOB. Coronavirus screen: At this time, the client does not indicate any symptoms associated with coronavirus-19. Ebola Screen: No symptoms or risks identified at this time. Initial Sepsis Screen: Does the patient meet any 2 criteria? No. Patient's initial sepsis screen is negative. Does the patient have a suspected source of infection? No. Patient's initial sepsis screen is negative. Risk Assessment: Do you want to hurt yourself or someone else? Patient reports no desire to harm self or others. Onset of symptoms was March 06, 2023. 18:54 Method Of Arrival: Ambulatory tl4 18:54 Acuity: KENYA 3 tl4 Triage Assessment: 18:58 General: Appears uncomfortable, Behavior is calm, cooperative. Pain: Complains of pain tl4 in face and scalp. EENT: No deficits noted. No signs and/or symptoms were reported regarding the EENT system. Neuro: Reports headache photophobia Denies blurred vision paresthesias numbness. Cardiovascular: Reports chest pain, Denies diaphoresis, fatigue, lightheadedness, palpitations. Respiratory: No deficits noted. Denies cough, shortness of breath. GI: No deficits noted. No signs and/or symptoms were reported involving the gastrointestinal system. : No deficits noted. No signs and/or symptoms were reported regarding the genitourinary system. Derm: No deficits noted. No signs and/or symptoms reported regarding the dermatologic system. Historical: - Allergies: 18:57 ACYCLOVIR AND DERIVATIVES; tl4 18:57 Adhesives; tl4 - Home Meds: 18:57 None [Active]; tl4 - PMHx: 18:57 Endometriosis; tl4 - PSHx: 18:57 Appendectomy; foot sx; tl4 - Immunization history:: Adult Immunizations unknown. - Social history:: Smoking status: Patient denies any tobacco usage or history of. Screenin:25 [facility] ED Fall Risk Assessment (Adult) History of falling in the last 3 months, kc6 including since admission No falls in past 3 months (0 pts) Confusion or Disorientation No (0 pts) Intoxicated or Sedated No (0 pts) Impaired Gait No (0 pts) Mobility Assist Device Used No (0 pt) Altered Elimination No (0 pt) Score/Fall Risk Level 0 - 2 = Low Risk. Abuse screen: Denies threats or abuse. Denies injuries from another. Nutritional screening: No deficits noted. Tuberculosis screening: No symptoms or risk factors identified. Assessment: 20:26 General: Appears in no apparent distress. comfortable, well groomed, well developed, kc6 Behavior is calm, cooperative, appropriate for age. Pain: Complains of pain in chest, head Pain does not radiate. Neuro: Level of Consciousness is awake, alert, obeys commands, Oriented to person, place, time, situation, Appropriate for age Reports dizziness, headache. Cardiovascular: Capillary refill < 3 seconds. Respiratory: Airway is patent Trachea midline Respiratory effort is even, unlabored, Respiratory pattern is regular, symmetrical. GI: Reports nausea, Patient currently denies abdominal pain, diarrhea, vomiting. : No signs and/or symptoms were reported regarding the genitourinary system. EENT: No signs and/or symptoms were reported regarding the EENT system. Derm: No signs and/or symptoms reported regarding the dermatologic system. Skin is intact, is healthy with good turgor, Skin is pink, warm \\T\\ dry. Musculoskeletal: No signs and/or symptoms reported regarding the musculoskeletal system. Circulation, motion, and sensation intact. Capillary refill < 3 seconds, Range of motion: intact in all extremities. Vital Signs: 18:54 BP 132 / 91; Pulse 88; Resp 16; Temp 98.1(O); Pulse Ox 100% on R/A; Weight 99.79 kg; tl4 Height 5 ft. 2 in. ; Pain 10/10; 18:54 Body Mass Index 40.24 (99.79 kg, 157.48 cm) tl4 18:54 Pain Scale: Adult tl4 [place] Coma Score: 22:10 Eye Response: spontaneous(4). Motor Response: obeys commands(6). Verbal Response: kb oriented(5). Total: 15. ED Course: 18:36 Patient arrived in ED. rg4 18:55 Viry Ramon FNP-C is [facility]. kb 18:55 Herson Veliz MD is Attending Physician. kb 18:57 Triage completed. tl4 18:59 Arm band placed on left wrist. tl4 19:20 Inserted saline lock: 20 gauge in right antecubital area, using aseptic technique. km8 Blood collected. 19:30 Basic Metabolic Panel Sent. km8 19:30 CBC with Diff Sent. km8 19:30 Troponin HS Sent. km8 19:44 XRAY Chest (1 view) In Process Unspecified. EDMS 20:26 Patient has correct armband on for positive identification. Bed in low position. Call kc6 light in reach. Side rails up X 1. Adult w/ patient. Client placed on continuous cardiac and pulse oximetry monitoring. NIBP monitoring applied. 20:26 Patient maintains SpO2 saturation greater than 95% on room air. kc6 21:13 No provider procedures requiring assistance completed. IV discontinued, intact, kc6 bleeding controlled, No redness/swelling at site. Pressure dressing applied. Administered Medications: 20:08 Drug: NS 0.9% IV 1000 ml IV at 1000 ml once Route: IV; Rate: 1000 ml; Site: right kc6 antecubital; 21:13 Follow up: Response: No adverse reaction; IV Status: Completed infusion; IV Intake: kc6 1000ml 20:08 Drug: metoCLOPramide IVP 10 mg IVP once; over 1 to 2 minutes Route: IVP; Site: right kc6 antecubital; 21:13 Follow up: Response: No adverse reaction kc6 20:08 Drug: Ketorolac IVP 15 mg IVP once Route: IVP; Site: right antecubital; kc6 21:13 Follow up: Response: No adverse reaction; Pain is decreased kc6 20:08 Drug: diphenhydrAMINE IVP 12.5 mg IVP once Route: IVP; Site: right antecubital; kc6 21:13 Follow up: Response: No adverse reaction kc6 20:09 Drug: Decadron - Dexamethasone IVP 10 mg IVP once Route: IVP; Site: right antecubital; kc6 21:13 Follow up: Response: No adverse reaction [facility] Medication: 21:14 VIS not applicable for this client. kc6 Intake: 21:13 IV: 1000ml; Total: 1000ml. kc6 Outcome: 20:47 Discharge ordered by MD. chowdhury 21:13 Discharged to home ambulatory, with friend, kc6 21:13 Condition: improved 21:13 Discharge instructions given to patient, Instructed on discharge instructions, follow up and referral plans. Demonstrated understanding of instructions, follow-up care, 21:14 Patient left the ED. kc6 Signatures: Dispatcher [employer] EDMS Viry Ramon, AUTOMATIC TYPEWRITER INSPECTOR-C AUTOMATIC TYPEWRITER INSPECTOR-Michelle Sal rg4 Norma Hernandes RN RN kc6 Natasha Durán RN RN km8 Dean, [place] tl4 Corrections: (The following items were deleted from the chart) 18:58 18:57 Home Meds: Unable to obtain; tl4 tl4
[2023-03-11 08:55] VITALS: BP 132/91; TEMP 98.1; O2SAT 100
--- NOTE | 2023-03-12 13:28 | EKG ---
Test Date: 2023-03-10 Test Time: 19:27:50 Urology Physician Assistant: ALONZO MEASUREMENT RESULTS: Intervals: Rate: 84 PA: 150 QRSD: 76 QT: 386 QTc: 456 [place]: P: 53 PA: 150 QRS: 44 T: 31 INTERPRETIVE STATEMENTS: Normal sinus rhythm Normal ECG No previous ECG available for comparison Electronically Signed On 03-12-23 13:23:08 PERSONAL LINES SALES EXECUTIVE by Johnny Vee
== END ==
LOC: ER 18:34
DX: G43.009 Migraine without aura, not intractable, without status migrainosus (principal); R07.9 Chest pain, unspecified
CPT/HCPCS: 36415; 71045; 80048; 84484; 85025; 93005; J1100; J1200; J2765; J7030

== ENCOUNTER → 2023-05-01 | Emergency (ER) | payer OTHER, SELFPAY ==
[~2023-05-01] MED LIST changes: -DIPHENHYDRAMINE 50 MG/ML VIAL ONE; -KETOROLAC 30 MG/ML INJ ONE; -METOCLOPRAMIDE 10 MG/2mL INJ ONE; +MORPHINE 4 MG/ML SYR ONE; -NA CHLORIDE 0.9% 1,000 ML ONE; +ONDANSETRON 4 MG/2 ML VIAL ONE; -dexAMETHasone 10 MG/ML VIAL ONE
--- OUTSIDE RECORDS SUMMARY | 2023-05-01 08:34 | XMS REPORT | Continuity of Care Document ---
Author Name Unknown Address [address] [facility] [address] [place] [address] [facility] Address [address] [facility] [address] [place] [address] Care Team Providers Care Occupational Therapy Co Director Name Role Phone DAVIS HAMM JR Primary Care Physician ARDEN Breaux Attending Clinician Unavailable Aletha Zarate PA-C Attending Clinician [phone] ALETHA ZARATE Attending Clinician Unavailable Nurse, [facility] Attending Clinician Un available Arden Whitehead MD Attending Clinician [phone] Bart Braun MD Attending Clinician + [phone] Pankaj Bhatia MD Attending Clinician + [phone] Gregg Carrillo CRNA Attending Clinician [phone] Doctor Unassigned, [place] Attending Clinician Sravanthi Chavez, [facility] Main Attending Clinician UnavailLEAH Baker Attending Clinician LEAH Lees Attending Clinician [place] [facility] 2, [facility] Attending Clinician Unavailable 1, [facility] Attending Clinician Unavailab lashae Diana MD, Coker Attending Clinician + JOHN PAUL LANIER Attending Clinician ARDEN Fry Admitting Clinician Arden Del Castillo MD Admitting Clinician LEAH GONZALEZ Admitting Clinician [facility] Payers Payer Name Policy Type Policy Number Effective Date Expirati on Date Source [employer] [place] [facility] [id number] 2022 00:00:00 Problems Condition Name Condition Details Condition Category Status Onset Date Resolution Date Last Treatment Date Treating Clinician Comments Source Liveborn , of marques , born in hospital by vaginal delivery Liveborn , of mar[place] , born in hospital by vaginal delivery Disease Active 4-19 00:00: 00 [facility] 39 weeks gestation of 39 weeks gestation of Disease Active 4-17 00:00: 00 [facility] Morbid obesity with body mass index of 40.0-49.9 Morbid obesity with body mass index of 40.0-49.9 Disease Active 4-06 00:00: 00 [facility] Pelvic pain during , antepartum Pelvic pain during , antepartum Disease Active 3-21 00:00: 00 [facility] Mild pre-eclamp kevin in third trimester Mild pre-eclamp kevin in third trimester Disease Active 2-20 00:00: 00 [facility] Severe pre-eclamp kevin in third trimester Severe pre-eclamp kevin in third trimester Disease Active 2-20 00:00: 00 [facility] BMI 40.0-44.9, adult BMI 40.0-44.9, adult Disease Active 2-20 00:00: 00 [facility] Obesity in Obesity in Disease Active 2-20 00:00: 00 [facility] High-risk in third trimester High-risk in third trimester Disease Active 2-20 00:00: 00 [facility] Elevated BP without diagnosis of hypertensi on Elevated BP without diagnosis of hypertensi on Disease Active 2-20 00:00: 00 [facility] Excessive weight gain during , antepartum Excessive weight gain during , antepartum Disease Active 2-20 00:00: 00 [facility] Allergies, Adverse Reactions, Alerts Allergy Name Allergy Type Status Severity Reaction(s) Onset Date Inactive Date Treating Clinician Comments Source ACYCLOVI R DRUG INGREDI Active Hives 04-15 00:00: 00 [facility] ADHESIVE TAPE-DAVE ICONES DRUG Active Hives 04-15 00:00: 00 [facility] Acyclovi r Propensi ty to adverse reaction s Active Hives 04-15 00:00: 00 [facility] Adhesive Tape-Dave icones Propensi ty to adverse reaction s Active Hives 04-15 00:00: 00 [facility] Social History Social Habit Start Date Stop Date Quantity Comments Source ASSERTION 2021-09-10 00:00:00 [facility] Exposure to SARS-CoV-2 (event) 2022-06-23 00:00:00 2022-07-03 20:41:00 Not sure [facility] Alcohol intake 2022-06-04 00:00:00 2022-06-04 00:00:00 Ex-drinker (finding) [facility] Tobacco use and exposure 2022-05-27 00:00:00 2022-05-27 00:00:00 Smokeless tobacco non-user [facility] Sex Assigned At 1995 00:00:00 1995 00:00:00 [facility] Smoking Status Start Date Stop Date Source Tobacco smoking consumption unknown [facility] Never smoked tobacco [facility] Medications Ordered Medication Name Filled Medication Name Start Date Stop Date Current Medication? Ordering Clinician Indication Dosage Frequency Signature (SIG) Comments Components Source aspirin 81 mg Cap 05-30 10:10: 08 05-30 00:00 :00 No Take by mouth. [facility] PNV 102-IRON-FO LATE-DHA ORAL 05-30 10:10: 08 05-30 00:00 :00 No Take by mouth. [facility] cyclobenzap rine 10 mg tablet 2022-0 05-30 00:00: 00 Yes [id number] 10mg Take 1 tablet by mouth 3 (three) times daily as needed for Muscle Spasms. [facility] vitamin w/FA tablet 2022-0 05-30 00:00: 00 Yes [id number] 1{tbl} Take 1 tablet by mouth in the morning. [facility] docusate 100 mg capsule 2022-0 05-30 00:00: 00 Yes [id number] 200mg Take 2 capsules by mouth once daily as needed for Constipati on. [facility] ferrous sulfate 325 mg (65 mg iron) tablet 2022-0 05-30 00:00: 00 Yes [id number] 325mg Take 1 tablet by mouth in the morning and 1 tablet in the evening. [facility] ibuprofen 600 mg tablet 2022-0 05-30 00:00: 00 Yes [id number] 600mg Take 1 tablet by mouth every 6 (six) hours as needed (Pain). Take with food or milk. [facility] cyclobenzap rine 10 mg tablet 2022-0 05-30 00:00: 00 Yes [id number] 10mg Take 1 tablet by mouth 3 (three) times daily as needed for Muscle Spasms. [facility] vitamin w/FA tablet 05-30 00:00: 00 Yes [id number] 1{tbl} Take 1 tablet by mouth in the morning. [facility] docusate 100 mg capsule 2022-0 05-30 00:00: 00 Yes [id number] 200mg Take 2 capsules by mouth once daily as needed for Constipati on. [facility] ferrous sulfate 325 mg (65 mg iron) tablet 2022-0 05-30 00:00: 00 Yes [id number] 325mg Take 1 tablet by mouth in the morning and 1 tablet in the evening. [facility] ibuprofen 600 mg tablet 2022-0 05-30 00:00: 00 Yes [id number] 600mg Take 1 tablet by mouth every 6 (six) hours as needed (Pain). Take with food or milk. [facility] cyclobenzap rine 10 mg tablet 2022-0 05-30 00:00: 00 Yes [id number] 10mg Take 1 tablet by mouth 3 (three) times daily as needed for Muscle Spasms. [facility] vitamin w/FA tablet 2022-0 05-30 00:00: 00 Yes [id number] 1{tbl} Take 1 tablet by mouth in the morning. [facility] docusate 100 mg capsule 2022-0 05-30 00:00: 00 Yes [id number] 200mg Take 2 capsules by mouth once daily as needed for Constipati on. [facility] ferrous sulfate 325 mg (65 mg iron) tablet 2022-0 05-30 00:00: 00 Yes [id number] 325mg Take 1 tablet by mouth in the morning and 1 tablet in the evening. [facility] ibuprofen 600 mg tablet 2022-0 05-30 00:00: 00 Yes [id number] 600mg Take 1 tablet by mouth every 6 (six) hours as needed (Pain). Take with food or milk. [facility] cyclobenzap rine 10 mg tablet 2022-0 05-30 00:00: 00 Yes [id number] 10mg Take 1 tablet by mouth 3 (three) times daily as needed for Muscle Spasms. [facility] vitamin w/FA tablet 2022-0 05-30 00:00: 00 Yes [id number] 1{tbl} Take 1 tablet by mouth in the morning. [facility] docusate 100 mg capsule 2022-0 05-30 00:00: 00 Yes [id number] 200mg Take 2 capsules by mouth once daily as needed for Constipati on. [facility] ferrous sulfate 325 mg (65 mg iron) tablet 2022-0 05-30 00:00: 00 Yes [id number] 325mg Take 1 tablet by mouth in the morning and 1 tablet in the evening. [facility] ibuprofen 600 mg tablet 2022-0 05-30 00:00: 00 Yes [id number] 600mg Take 1 tablet by mouth every 6 (six) hours as needed (Pain). Take with food or milk. [facility] cyclobenzap rine 10 mg tablet 2022-0 05-30 00:00: 00 Yes [id number] 10mg Take 1 tablet by mouth 3 (three) times daily as needed for Muscle Spasms. [facility] vitamin w/FA tablet 05-30 00:00: 00 Yes [id number] 1{tbl} Take 1 tablet by mouth in the morning. [facility] docusate 100 mg capsule 05-30 00:00: 00 Yes [id number] 200mg Take 2 capsules by mouth once daily as needed for Constipati on. [facility] ferrous sulfate 325 mg (65 mg iron) tablet 05-30 00:00: 00 Yes [id number] 325mg Take 1 tablet by mouth in the morning and 1 tablet in the evening. [facility] ibuprofen 600 mg tablet 05-30 00:00: 00 Yes [id number] 600mg Take 1 tablet by mouth every 6 (six) hours as needed (Pain). Take with food or milk. [facility] SUMAtriptan (IMITREX) injection 6 mg 05-29 19:45: 00 05-29 19:03 :00 No 6mg 6 mg, Subcutaneo us, ONCE, 1 dose, On Mira 05/29/22 at 1445, Routine [facility] cyclobenzap rine (FLEXERIL) tablet 10 mg 05-29 19:00: 00 Yes 10mg 10 mg, Oral, TID, First dose on Mira 05/29/22 at 1400, Until Discontinu ed, Routine [facility] D5W 0.45% NaCl (1/2NS) IV infusion 1,000 mL 05-29 05:15: 00 Yes 1000mL at 75 mL/hr, 1,000 mL, IV Infusion, CONTINUOUS , Starting on Mira 05/29/22 at 0015, Until Discontinu ed, Routine [facility] magnesium sulfate in water for injection 20 gram/500 mL (4 %) IV infusion 05-29 05:15: 00 Yes 2g/h 2 g/hr (50 mL/hr), IV Infusion, CONTINUOUS , Starting on Mira 05/29/22 at 0015, Until Discontinu ed, JEISON [facility] calcium gluconate 100 mg/mL (10%) injection 1,000 mg 05-29 03:24: 47 Yes 1000mg 1,000 mg, Slow IV Push, PRN - SEE INSTRUCTIO NS, Starting on Thu05/28/22 at 2224, Until Discontinu ed, Routine, magnesium toxicity [facility] magnesium sulfate 4 mEq/mL (50 %) injection 32.48 mEq 05-29 03:24: 47 Yes 4g 32.48 mEq (4 g), Slow IV Push, PRN - SEE INSTRUCTIO NS, Starting on Thu05/28/22 at 2224, Until Discontinu ed, Routine, For seizure activity (patient not on magnesium sulfate) [facility] magnesium sulfate 4 mEq/mL (50 %) injection 16.24 mEq 05-29 03:24: 47 Yes 2g 16.24 mEq (2 g), Slow IV Push, PRN - SEE INSTRUCTIO NS, 2 doses, Starting on Thu05/28/22 at 2224, Until Discontinu ed, Routine, For seizure activity (patient already on magnesium sulfate) [facility] butalbital- acetaminoph en-caff (ESGIC) 50-325-40 mg tablet 1 tablet 05-29 03:19: 24 Yes 1{tbl} 1 tablet, Oral, Q4HPRN, Starting on Thu05/28/22 at 2219, Until Discontinu ed, Routine, Pain (scale 4-6) [facility] rho(D) immune globulin (RHOGAM) syringe 300 mcg 05-28 17:09: 28 Yes 300ug 300 mcg, Intramuscu lar, ONCE, For 1 dose, Conditiona l, Routine [facility] HYDROcodone -acetaminop hen (NORCO 5) 5-325 mg tablet 1 tablet 05-28 17:09: 24 Yes 1{tbl} 1 tablet, Oral, Q6HPRN, Starting on Thu05/28/22 at 1209, Until Discontinu ed, Routine, Pain (scale 7-10) [facility] ibuprofen (IBU) tablet 600 mg 05-28 17:09: 24 Yes 600mg 600 mg, Oral, Q6HPRN, Starting on Thu05/28/22 at 1209, Until Discontinu ed, Routine, Pain (scale 4-6) [facility] acetaminoph en (TYLENOL) tablet 650 mg 05-28 17:09: 24 Yes 650mg 650 mg, Oral, Q6HPRN, Starting on Thu05/28/22 at 1209, Until Discontinu ed, Routine, Pain (scale 1-3) [facility] diphenhydrA MINE (BENADRYL) tablet 25 mg 05-28 17:09: 24 Yes 25mg 25 mg, Oral, Q6HPRN, Starting on Thu05/28/22 at 1209, Until Discontinu ed, Routine, Sleep, Itching [facility] ondansetron (ZOFRAN (PF)) injection 4 mg 05-28 17:09: 24 Yes 4mg 4 mg, Slow IV Push, Q8HPRN, Starting on Thu05/28/22 at 1209, Until Discontinu ed, Routine, Nausea and Vomiting (N/V) [facility] simethicone (GAS RELIEF (SIMETHICON E)) chewable tablet 160 mg 05-28 17:09: 24 Yes 160mg 160 mg, Oral, PC+HSPRN, Starting on Thu05/28/22 at 1209, Until Discontinu ed, Routine, Gas [facility] docusate (COLACE) capsule 200 mg 05-28 17:09: 24 Yes 200mg 200 mg, Oral, QDAILYPRN, Starting on Thu05/28/22 at 1209, Until Discontinu ed, Routine, Constipati on [facility] magnesium hydroxide (MILK OF MAGNESIA) 400 mg/5 mL suspension 30 mL 05-28 17:09: 24 Yes 30mL 30 mL, Oral, QDAILYPRN, Starting on Thu05/28/22 at 1209, Until Discontinu ed, Routine, Constipati on [facility] benzocaine- menthol (DERMOPLAST ) 20-0.5 % topical spray 05-28 17:09: 23 Yes Topical, PRN, Starting on Thu05/28/22 at 1209, Until Discontinu ed, Routine, Perineum discomfort [facility] witch Jenni (TUCKS) 50 % topical pad 05-28 17:09: 05 Yes Topical, Q4HPRN, Starting on Thu05/28/22 at 1209, Until Discontinu ed, Routine, rectal/hem orrhoidal pain [facility] diphenoxyla te-atropine (LOMOTIL) 2.5-0.025 mg tablet 1 tablet 05-28 15:56: 32 05-28 17:09 :05 No 1{tbl} 1 tablet, Oral, Q6HPRN, Starting on Thu05/28/22 at 1056, Until Thu05/28/22 at 1209, Routine, Surgery/Pr ocedure [facility] butalbital- acetaminoph en-caff (ESGIC) 50-325-40 mg tablet 2 tablet 05-28 15:01: 00 05-28 15:05 :00 No 2{tbl} 2 tablet, Oral, ONCE, 1 dose, On Thu05/28/22 at 1015, Routine [facility] aspirin 81 mg Cap 05-28 12:06: 20 Yes Take by mouth. [facility] PNV 102-IRON-FO LATE-DHA ORAL 05-28 12:06: 20 Yes Take by mouth. [facility] diphenhydrA MINE (BENADRYL) injection 25 mg 05-28 09:35: 00 05-28 09:42 :00 No 25mg 25 mg, Intravenou s, ONCE, 1 dose, On Thu05/28/22 at 0445, JEISON [facility] fentaNYL-ro pivacaine 2 mcg/mL-0.1 % (PF) in NS 200 mL epidural infusion RTU 05-28 02:06: 00 05-28 18:55 :46 No Epidural, ONCE INTRA PROCEDURE, Starting on Thu05/27/22 at 2106, Until Discontinu ed, Routine, Intra-op [facility] fentaNYL-ro pivacaine 2 mcg/mL-0.1 % (PF) in NS 200 mL epidural infusion RTU 05-28 02:06: 00 05-28 18:55 :46 No Epidural, CONTINUOUS PRN, Starting on Thu05/27/22 at 2106, Until Discontinu ed, Routine, Intra-op [facility] lidocaine-e pinephrine (XYLOCAINE W/EPINEPHRI NE) 1.5 %-1:200,000 injection 05-28 01:57: 00 05-28 18:55 :46 No Epidural, ONCE INTRA PROCEDURE, Starting on Thu05/27/22 at 2057, Until Discontinu ed, Routine, Intra-op [facility] oxytocin (PITOCIN) 30 units in NS 500 mL IV infusion 05-28 01:15: 00 05-28 17:09 :05 No 2mU/min at 2-40 mL/hr, IV Infusion, TITRATE, Starting on Thu05/27/22 at 2015, Until Thu05/28/22 at 1209, JEISON [facility] aspirin 81 mg Cap 05-27 17:46: 38 Yes Take by mouth. [facility] PNV 102-IRON-FO LATE-DHA ORAL 05-27 17:46: 38 Yes Take by mouth. [facility] misoprostol (CYTOTEC) quarter-tab let 25 mcg 05-27 16:00: 00 05-28 17:09 :05 No 25ug 25 mcg, Vaginal, Q4H ABX, First dose on Thu05/27/22 at 1100, Until Discontinu ed, Routine [facility] misoprostol (CYTOTEC) quarter-tab let 25 mcg 05-27 16:00: 00 05-27 17:54 :00 No 25ug 25 mcg, Oral, ONCE, 1 dose, On Thu05/27/22 at 1100, Routine [facility] FENTanyl PF (SUBLIMAZE (PF)) injection 100 mcg 05-27 15:51: 32 05-28 17:09 :05 No 100ug 100 mcg, Slow IV Push, Q1HPRN, Starting on Thu05/27/22 at 1051, Until Thu05/28/22 at 1209, Routine, contractio n pain without an epidural and SVE < 8 cm and Cat I strip [facility] carboprost (HEMABATE) injection 250 mcg 05-27 15:51: 19 05-28 15:55 :00 No 250ug 250 mcg, Intramuscu lar, Q2HPRN, 1 dose, Starting on Thu05/27/22 at 1051, Until Discontinu ed, Routine, PPH [facility] lactated ringers IV infusion 500 mL 05-27 15:51: 19 05-28 17:09 :08 No 500mL at 999 mL/hr, 500 mL, IV Infusion, PRN - SEE INSTRUCTIO NS, Starting on Thu05/27/22 at 1051, Until Thu05/28/22 at 1209, Routine [facility] D5W-LR IV infusion 1,000 mL 05-27 15:51: 19 05-28 17:09 :08 No 1000mL at 1-125 mL/hr, IV Infusion, TITRATE, Starting on Thu05/27/22 at 1051, Until Thu05/28/22 at 1209, Routine [facility] aspirin 81 mg Cap 05-18 18:49: 02 Yes Take by mouth. [facility] PNV 102-IRON-FO LATE-DHA ORAL 05-18 18:49: 02 Yes Take by mouth. [facility] aspirin 81 mg Cap 05-18 18:49: 02 Yes Take by mouth. [facility] PNV 102-IRON-FO LATE-DHA ORAL 05-18 18:49: 02 Yes Take by mouth. [facility] aspirin 81 mg Cap 05-18 18:49: 02 Yes Take by mouth. [facility] PNV 102-IRON-FO LATE-DHA ORAL 05-18 18:49: 02 Yes Take by mouth. [facility] aspirin 81 mg Cap 05-18 18:49: 02 Yes Take by mouth. [facility] PNV 102-IRON-FO LATE-DHA ORAL 05-18 18:49: 02 Yes Take by mouth. [facility] aspirin 81 mg Cap 05-18 18:49: 02 Yes Take by mouth. [facility] PNV 102-IRON-FO LATE-DHA ORAL 05-18 18:49: 02 Yes Take by mouth. [facility] aspirin 81 mg Cap 05-18 18:49: 02 Yes Take by mouth. [facility] PNV 102-IRON-FO LATE-DHA ORAL 05-18 18:49: 02 Yes Take by mouth. [facility] aspirin 81 mg Cap 05-18 18:49: 02 Yes Take by mouth. [facility] PNV 102-IRON-FO LATE-DHA ORAL 05-18 18:49: 02 Yes Take by mouth. [facility] terbutaline (BRETHINE) injection 0.25 mg 05-08 03:30: 00 05-08 03:22 :00 No .25mg 0.25 mg, Subcutaneo us, ONCE, 1 dose, On Thu05/07/22 at 2230, JEISON [facility] NaCl 0.9% (NS) bolus infusion 1,000 mL 05-08 01:55: 00 05-08 02:14 :48 No 1000mL at 999 mL/hr, 1,000 mL, IV Infusion, ONCE, 1 dose, On Thu05/07/22 at 2100, STAT [facility] metroNIDAZO LE (FLAGYL) tablet 500 mg 05-08 01:55: 00 05-08 02:00 :00 No 500mg 500 mg, Oral, ONCE, 1 dose, On Thu05/07/22 at 2100, JEISON
Re ason for Anti-Infec tive: Documented Infection< br>Documen stella Infection Site: Pelvic
Duration of Therapy: Other (see Comments) [facility] aspirin 81 mg Cap 2022-0 30 00:13: 49 Yes Take by mouth. [facility] PNV 102-IRON-FO LATE-DHA ORAL 2022-0 05-08 00:13: 49 Yes Take by mouth. [facility] aspirin 81 mg Cap 2022-0 05-08 00:13: 49 Yes Take by mouth. [facility] PNV 102-IRON-FO LATE-DHA ORAL 2022-0 05-08 00:13: 49 Yes Take by mouth. [facility] aspirin 81 mg Cap 2022-0 05-08 00:13: 49 Yes Take by mouth. [facility] PNV 102-IRON-FO LATE-DHA ORAL 2022-0 05-08 00:13: 49 Yes Take by mouth. [facility] aspirin 81 mg Cap 2022-0 05-08 00:13: 49 Yes Take by mouth. [facility] PNV 102-IRON-FO LATE-DHA ORAL 2022-0 05-08 00:13: 49 Yes Take by mouth. [facility] aspirin 81 mg Cap 2022-0 05-08 00:13: 49 Yes Take by mouth. [facility] PNV 102-IRON-FO LATE-DHA ORAL 2022-0 05-08 00:13: 49 Yes Take by mouth. [facility] aspirin 81 mg Cap 2022-0 05-08 00:13: 49 Yes Take by mouth. [facility] PNV 102-IRON-FO LATE-DHA ORAL 2022-0 05-08 00:13: 49 Yes Take by mouth. [facility] metroNIDAZO LE (FLAGYL) 500 mg tablet 2022-0 05-08 00:00: 00 05-16 04:59 :00 No [id number] 500mg Take 1 tablet by mouth in the morning and 1 tablet in the evening. Do all this for 7 days. [facility] metroNIDAZO LE (FLAGYL) 500 mg tablet 2022-0 05-08 00:00: 00 05-16 04:59 :00 No [id number] 500mg Take 1 tablet by mouth in the morning and 1 tablet in the evening. Do all this for 7 days. [facility] metroNIDAZO LE (FLAGYL) 500 mg tablet 05-08 00:00: 00 05-16 04:59 :00 No [id number] 500mg Take 1 tablet by mouth in the morning and 1 tablet in the evening. Do all this for 7 days. [facility] butalbital- acetaminoph en-caff (ESGIC) 50-325-40 mg tablet 1 tablet 04-17 01:00: 39 04-17 01:07 :00 No 1{tbl} 1 tablet, Oral, Q4HPRN, 1 dose, Starting on Thu04/16/22 at 1900, Until Thu04/16/22 at 1907, Routine, Headache per Dr. Whitehead [facility] aspirin 81 mg Cap 04-16 21:34: 24 Yes Take by mouth. [facility] PNV 102-IRON-FO LATE-DHA ORAL 04-16 21:34: 24 Yes Take by mouth. [facility] aspirin 81 mg Cap 04-16 21:34: 24 Yes Take by mouth. [facility] PNV 102-IRON-FO LATE-DHA ORAL 04-16 21:34: 24 Yes Take by mouth. [facility] metroNIDAZO LE 500 mg tablet 04-15 00:00: 00 Yes [id number] 500mg Take 1 tablet by mouth every 12 (twelve) hours. [facility] metroNIDAZO LE 500 mg tablet 04-15 00:00: 00 Yes [id number] 500mg Take 1 tablet by mouth every 12 (twelve) hours. [facility] metroNIDAZO LE 500 mg tablet 04-15 00:00: 00 Yes [id number] 500mg Take 1 tablet by mouth every 12 (twelve) hours. [facility] metroNIDAZO LE 500 mg tablet 04-15 00:00: 00 Yes [id number] 500mg Take 1 tablet by mouth every 12 (twelve) hours. [facility] metroNIDAZO LE 500 mg tablet 04-15 00:00: 00 Yes [id number] 500mg Take 1 tablet by mouth every 12 (twelve) hours. [facility] metroNIDAZO LE 500 mg tablet 04-15 00:00: 00 Yes [id number] 500mg Take 1 tablet by mouth every 12 (twelve) hours. [facility] metroNIDAZO LE 500 mg tablet 04-15 00:00: 00 05-08 00:00 :00 No [id number] 500mg Take 1 tablet by mouth every 12 (twelve) hours. [facility] acetaminoph en (TYLENOL) tablet 650 mg 04-09 00:21: 59 Yes 650mg 650 mg, Oral, Q6HPRN, Starting on Thu04/08/22 at 1821, Until Discontinu ed, Routine, Pain (scale 4-6) [facility] aspirin 81 mg Cap 04-08 20:07: 13 Yes Take by mouth. [facility] PNV 102-IRON-FO LATE-DHA ORAL 04-08 20:07: 13 Yes Take by mouth. [facility] aspirin 81 mg Cap 04-08 20:07: 13 Yes Take by mouth. [facility] PNV 102-IRON-FO LATE-DHA ORAL 04-08 20:07: 13 Yes Take by mouth. [facility] aspirin 81 mg Cap 04-08 20:07: 13 Yes Take by mouth. [facility] PNV 102-IRON-FO LATE-DHA ORAL 04-08 20:07: 13 Yes Take by mouth. [facility] aspirin 81 mg Cap 04-08 20:07: 13 Yes Take by mouth. [facility] PNV 102-IRON-FO LATE-DHA ORAL 04-08 20:07: 13 Yes Take by mouth. [facility] aspirin 81 mg Cap 04-08 20:07: 13 Yes Take by mouth. [facility] PNV 102-IRON-FO LATE-DHA ORAL 04-08 20:07: 13 Yes Take by mouth. [facility] aspirin 81 mg Cap 03-31 15:35: 47 Yes Take by mouth. [facility] PNV 102-IRON-FO LATE-DHA ORAL 03-31 15:35: 47 Yes Take by mouth. [facility] aspirin 81 mg Cap 03-31 15:35: 47 Yes Take by mouth. [facility] PNV 102-IRON-FO LATE-DHA ORAL 03-31 15:35: 47 Yes Take by mouth. [facility] Vital Signs Vital Name Observation Time Observation Value Comments S perfectosherri Systolic blood pressure 2022-07-04 14:01:00 121 mm[Hg] [facility] Diastolic blood pressure 2022-07-04 14:01:00 83 mm[Hg] [facility] Heart rate 2022-07-04 14:01:00 99 /min [facility] Body temperature 2022-07-04 14:01:00 36.72 Amy [facility] Body weight 2022-07-04 14:01:00 99.882 kg [facility] BMI 2022-07-04 14:01:00 40.28 kg/m2 [facility] Systolic blood pressure 2022-06-04 14:53:00 120 mm[Hg] [facility] Diastolic blood pressure 2022-06-04 14:53:00 82 mm[Hg] [facility] Heart rate 2022-06-04 14:53:00 97 /min [facility] Respiratory rate 2022-06-04 14:53:00 18 /min [facility] Body weight 2022-06-04 14:53:00 100.699 kg [facility] BMI 2022-06-04 14:53:00 40.60 kg/m2 [facility] Systolic blood pressure 2022-05-30 12:45:00 119 mm[Hg] [facility] Diastolic blood pressure 2022-05-30 12:45:00 61 mm[Hg] [facility] Heart rate 2022-05-30 12:45:00 89 /min [facility] Body temperature 2022-05-30 12:45:00 36.94 Amy [facility] Respiratory rate 2022-05-30 12:45:00 17 /min [facility] Oxygen saturation in Arterial blood by Pulse oximetry 2022-05-30 12:45:00 99 /min [facility] Body height 2022-05-27 15:42:00 157.5 cm [facility] Body weight 2022-05-27 15:42:00 111.131 kg [facility] BMI 2022-05-27 15:42:00 44.81 kg/m2 [facility] Systolic blood pressure 2022-05-23 18:07:00 127 mm[Hg] [facility] Diastolic blood pressure 2022-05-23 18:07:00 84 mm[Hg] [facility] Heart rate 2022-05-23 18:07:00 98 /min [facility] Body temperature 2022-05-23 18:07:00 36.72 [facility] Respiratory rate 2022-05-23 18:07:00 17 /min [facility] Body height 2022-05-23 18:07:00 157.5 cm [facility] Body weight 2022-05-23 18:07:00 110.224 kg [facility] BMI 2022-05-23 18:07:00 44.45 kg/m2 [facility] Heart rate 2022-05-18 23:30:00 106 /min [facility] Oxygen saturation in Arterial blood by Pulse oximetry 2022-05-18 23:30:00 98 /min [facility] Systolic blood pressure 2022-05-18 22:40:00 133 mm[Hg] [facility] Diastolic blood pressure 2022-05-18 22:40:00 65 mm[Hg] [facility] Body temperature 2022-05-18 22:40:00 36.61 [facility] Respiratory rate 2022-05-18 22:40:00 18 /min [facility] Body height 2022-05-18 22:20:00 157.5 cm [facility] Body weight 2022-05-18 22:20:00 109.861 kg [facility] BMI 2022-05-18 22:20:00 44.30 kg/m2 [facility] Systolic blood pressure 2022-05-15 15:10:00 111 mm[Hg] [facility] Diastolic blood pressure 2022-05-15 15:10:00 76 mm[Hg] [facility] Heart rate 2022-05-15 15:10:00 106 /min [facility] Body temperature 2022-05-15 15:10:00 36.83 [facility] Respiratory rate 2022-05-15 15:10:00 18 /min [facility] Body height 2022-05-15 15:10:00 152.4 cm [facility] Body weight 2022-05-15 15:10:00 107.049 kg [facility] BMI 2022-05-15 15:10:00 46.09 kg/m2 [facility] Systolic blood pressure 2022-05-08 20:09:00 127 mm[Hg] [facility] Diastolic blood pressure 2022-05-08 20:09:00 87 mm[Hg] [facility] Heart rate 2022-05-08 20:09:00 125 /min [facility] Body temperature 2022-05-08 20:09:00 36.67 [facility] Body weight 2022-05-08 20:09:00 106.777 kg [facility] BMI 2022-05-08 20:09:00 45.97 kg/m2 [facility] Heart rate 2022-05-08 04:51:00 113 /min [facility] Oxygen saturation in Arterial blood by Pulse oximetry 2022-05-08 04:51:00 92 /min [facility] Systolic blood pressure 2022-05-08 04:07:00 135 mm[Hg] [facility] Diastolic blood pressure 2022-05-08 04:07:00 85 mm[Hg] [facility] Body temperature 2022-05-08 00:15:00 36.72 [facility] Respiratory rate 2022-05-08 00:15:00 16 /min [facility] Body weight 2022-05-07 23:30:00 105.87 kg [facility] BMI 2022-05-07 23:30:00 45.58 kg/m2 [facility] Systolic blood pressure 2022-04-29 18:53:00 124 mm[Hg] [facility] Diastolic blood pressure 2022-04-29 18:53:00 90 mm[Hg] [facility] Heart rate 2022-04-29 18:53:00 101 /min [facility] Body temperature 2022-04-29 18:53:00 36.67 Amy [facility] Body weight 2022-04-29 18:53:00 104.055 kg [facility] BMI 2022-04-29 18:53:00 44.80 kg/m2 [facility] Heart rate 2022-04-17 03:15:00 83 /min [facility] Oxygen saturation in Arterial blood by Pulse oximetry 2022-04-17 03:15:00 97 /min [facility] Systolic blood pressure 2022-04-17 03:01:00 129 mm[Hg] [facility] Diastolic blood pressure 2022-04-17 03:01:00 64 mm[Hg] [facility] Respiratory rate 2022-04-17 01:07:00 17 /min [facility] Body temperature 2022-04-17 00:23:00 36.83 [facility] Body weight 2022-04-17 00:00:00 102.331 kg [facility] BMI 2022-04-17 00:00:00 44.06 kg/m2 [facility] Systolic blood pressure 2022-04-14 19:57:00 118 mm[Hg] [facility] Diastolic blood pressure 2022-04-14 19:57:00 79 mm[Hg] [facility] Heart rate 2022-04-14 19:57:00 90 /min [facility] Body temperature 2022-04-14 19:57:00 36.67 [facility] Respiratory rate 2022-04-14 19:57:00 18 /min [facility] Body height 2022-04-14 19:57:00 152.4 cm [facility] Body weight 2022-04-14 19:57:00 101.878 kg [facility] BMI 2022-04-14 19:57:00 43.86 kg/m2 [facility] Oxygen saturation in Arterial blood by Pulse oximetry 2022-04-14 19:57:00 99 /min [facility] Heart rate 2022-04-09 01:45:00 88 /min [facility] Oxygen saturation in Arterial blood by Pulse oximetry 2022-04-09 01:45:00 100 /min [facility] Systolic blood pressure 2022-04-09 01:00:00 119 mm[Hg] [facility] Diastolic blood pressure 2022-04-09 01:00:00 64 mm[Hg] [facility] Body temperature 2022-04-09 00:55:00 37.11 Amy [facility] Respiratory rate 2022-04-09 00:55:00 16 /min [facility] Body height 2022-04-08 23:40:00 152.4 cm [facility] Body weight 2022-04-08 23:40:00 101.016 kg [facility] BMI 2022-04-08 23:40:00 43.49 kg/m2 [facility] Systolic blood pressure 2022-03-31 21:31:00 124 mm[Hg] [facility] Diastolic blood pressure 2022-03-31 21:31:00 84 mm[Hg] [facility] Heart rate 2022-03-31 21:31:00 80 /min [facility] Body temperature 2022-03-31 21:31:00 36.72 [facility] Respiratory rate 2022-03-31 21:31:00 18 /min [facility] Body height 2022-03-31 21:31:00 152.4 cm [facility] Body weight 2022-03-31 21:31:00 99.791 kg [facility] BMI 2022-03-31 21:31:00 42.97 kg/m2 [facility] Heart rate 2022-03-17 21:15:00 104 /min [facility] Oxygen saturation in Arterial blood by Pulse oximetry 2022-03-17 21:15:00 97 /min [facility] Systolic blood pressure 2022-03-17 21:00:00 114 mm[Hg] [facility] Diastolic blood pressure 2022-03-17 21:00:00 73 mm[Hg] [facility] Respiratory rate 2022-03-17 20:12:00 18 /min [facility] Body temperature 2022-03-17 18:26:00 36.94 [facility] Body height 2022-03-17 18:26:00 152.4 cm [facility] Body weight 2022-03-17 18:26:00 92.987 kg [facility] BMI 2022-03-17 18:26:00 40.04 kg/m2 [facility] Procedures Procedure Date / Time Performed Performing Clinician Source SGOT (ASPARTATE AMINO TRANSFER) 2022-05-29 13:23:00 Arden Whitehead [facility] CREATININE 2022-05-29 13:23:00 Arden Whitehead [facility] ALANINE AMINO TRANSFERASE(SGPT 2022-05-29 13:23:00 Arden Whitehead [facility] LACTATE DEHYDROGENASE 2022-05-29 13:23:00 Arden Whitehead [facility] URIC ACID 2022-05-29 13:23:00 Arden Whitehead [facility] MAGNESIUM 2022-05-29 13:23:00 Arden Whitehead [facility] CBC WITH DIFF 2022-05-29 13:23:00 Arden [facility] CBC WITH DIFF 2022-05-29 09:10:00 Arden Whitehead [facility] URINALYSIS 2022-05-29 04:31:00 WhiteheadArden [facility] PROTEIN CREAT RATIO URINE RANDOM 2022-05-29 04:31:00 WhiteheadArden [facility] SGOT (ASPARTATE AMINO TRANSFER) 2022-05-29 03:55:00 CharleyArden [facility] CREATININE 2022-05-29 03:55:00 WhiteheadArden [facility] ALANINE AMINO TRANSFERASE(SGPT 2022-05-29 03:55:00 Charley Arden [facility] LACTATE DEHYDROGENASE 2022-05-29 03:55:00 Arden Whitehead [facility] URIC ACID 2022-05-29 03:55:00 WhiteheadArden [facility] CBC WITH DIFF 2022-05-29 03:55:00 Charley Arden [facility] SGOT (ASPARTATE AMINO TRANSFER) 2022-05-28 14:05:00 WhiteheadArden [facility] CREATININE 2022-05-28 14:05:00 WhiteheadArden [facility] ALANINE AMINO TRANSFERASE(SGPT 2022-05-28 14:05:00 WhiteheadArden [facility] LACTATE DEHYDROGENASE 2022-05-28 14:05:00 Arden Whitehead [facility] URIC ACID 2022-05-28 14:05:00 WhiteheadArden [facility] CBC WITH DIFF 2022-05-28 14:05:00 Charley Arden [facility] URINALYSIS 2022-05-28 14:05:00 Charley Arden Rodolfo [facility] PROTEIN CREAT RATIO URINE RANDOM 2022-05-28 14:05:00 Charley Arden [facility] CENTRAL NEURAXIAL BLOCK 2022-05-28 01:37:00 Bart Braun [facility] HB ABO GROUPING 2022-05-27 16:24:00 Charley Arden [facility] RHO (D) IMMUNE GLOBULIN 2022-05-27 16:24:00 Charley Arden Reynolds [facility] HOSPITAL ADMISSION 2022-05-27 05:01:00 Doctor Un assigned, [place] [facility] ASSIGNMENT OF BENEFITS 2022-05-23 19:30:23 Docto r Unassigned, [place] [facility] NON-STRESS TEST 2022-05-23 18:57:00 Arden Whitehead [facility] POCT URINALYSIS W/O SPECIFIC GRAVITY 2022-05-23 00:00:00 Arden Whitehead [facility] ASSIGNMENT OF BENEFITS 2022-05-18 22:15:54 Docto r Unassigned, [place] [facility] CONSENT/REFUSAL FOR DIAGNOSIS AND TREATMENT 2022-05-18 22:10:09 Doctor Unassigned, [place] [facility] POCT URINALYSIS W/O SPECIFIC GRAVITY 2022-05-15 00:00:00 Arden Whitehead [facility] >14 WEEKS US LIMITED 2022-05-08 20:30:01 Arden Whitehead [facility] URINALYSIS 2022-05-08 00:38:00 Arden Whitehead [facility] ADC CLC OR LCC ONLY - WET PREP 2022-05-08 00:38:00 Arden Whitehead [facility] POCT URINALYSIS W/O SPECIFIC GRAVITY 2022-05-08 00:00:00 Arden Whitehead [facility] ASSIGNMENT OF BENEFITS 2022-05-07 23:22:41 Docto r Unassigned, [place] [facility] CONSENT/REFUSAL FOR DIAGNOSIS AND TREATMENT 2022-05-07 23:19:18 Doctor Unassigned, [place] [facility] POCT URINALYSIS W/O SPECIFIC GRAVITY 2022-04-29 00:00:00 Arden Whitehead [facility] NOTICE OF PRIVACY PRACTICES 2022-04-16 23:55:48 Doctor Unassigned, [place] [facility] ASSIGNMENT OF BENEFITS 2022-04-16 23:55:12 Docto r Unassigned, [place] [facility] POCT URINALYSIS W/O SPECIFIC GRAVITY 2022-04-14 00:00:00 Arden Whitehead [facility] ALANINE AMINO TRANSFERASE(SGPT 2022-04-09 00:33:00 Adum, Trisha Miller [facility] LACTATE DEHYDROGENASE 2022-04-09 00:33:00 Adum, Trisha Miller [facility] URIC ACID 2022-04-09 00:33:00 Adum, [facility] CBC WITH DIFF 2022-04-09 00:33:00 [facility]-09 00:33:00 Adum, Trisha [facility] HB ABO GROUPING 2022-04-09 00:33:00 Adum, Trisha Chong [facility] PROTEIN CREAT RATIO URINE RANDOM 2022-04-09 00:33:00 Adum, Trisha Miller [facility] SGOT (ASPARTATE AMINO TRANSFER) 2022-04-09 00:33:00 Adum, Trisha Miller [facility] CREATININE 2022-04-09 00:33:00 Adum, Trisha [facility] ASSIGNMENT OF BENEFITS 2022-04-08 23:36:16 Docto r Unassigned, [place] [facility] CONSENT/REFUSAL FOR DIAGNOSIS AND TREATMENT 2022-04-08 23:35:38 Doctor Unassigned, [place] [facility] ASSIGNMENT OF BENEFITS 2022-03-31 20:12:54 Docto r Unassigned, [place] [facility] POCT URINALYSIS W/O SPECIFIC GRAVITY 2022-03-31 00:00:00 Arden Whitehead [facility] ASSIGNMENT OF BENEFITS 2022-03-17 18:20:15 Docto r Unassigned, [place] [facility] CONSENT/REFUSAL FOR DIAGNOSIS AND TREATMENT 2022-03-17 18:17:10 Doctor Unassigned, [place] [facility] Encounters Start Date/Time End Date/Time Encounter Type Admission Type Attending [facility] Care Facility Care Department Encounter ID Source 2022-12-22 09:14:47 Outpatient X [facility] A[facility]K [id number] [facility] 2023-01-05 08:00:00 2023-01-05 08:00:00 Outpatient R ARDEN WH[facility] [id number] [facility] 2022-07-04 09:00:00 2022-07-04 09:15:00 Routine Visit Aletha Zarate [facility] 1.2.840.114 350.1.13.10 4.2.7.2.686 [id number] [facility] 2022-07-04 09:00:00 2022-07-04 09:00:00 Outpatient R [facility]LLIOT [facility] [id number] [facility] 2022-06-04 10:00:00 2022-06-04 10:15:00 Nurse Visit Nurse, [facility] Arden Whitehead [facility] 1.2.840.114 350.1.13.10 4.2.7.2.686 [id number] [facility] 2022-06-04 10:00:00 2022-06-04 10:00:00 Outpatient R [facility] [id number] [facility] 2022-06-04 00:00:00 2022-06-04 00:00:00 Telephone Arden Whitehead [facility] 1.2.840.114 350.1.13.10 4.2.7.2.686 [id number] [facility] 2022-05-27 10:11:00 2022-05-30 11:00:00 Inpatient P CHARLEY ARDEN [facility] [id number] [facility] 2022-05-27 10:11:00 2022-05-30 11:00:00 Hospital Encounter Arden Whitehead [facility] 1.2.840.114 350.1.13.10 4.2.7.2.686 [id number] [facility] 2022-05-27 20:37:00 2022-05-28 13:41:00 Anesthesia Event Bart Braun Michael Wayne [facility] 1.2840.114 350.1.13.10 4.2.7.2.686 [id number] [id number] [facility] 2022-05-27 17:47:41 2022-05-27 17:47:41 Anesthesia Event Gregg Carrillo [facility] 1.2840.114 350.1.13.10 4.2.7.2.686 [id number] [facility] 2022-05-27 00:00:00 2022-05-27 00:00:00 Orders Only Doctor Unassigned, [place] [facility] 1.2840.114 350.1.13.10 4.2.7.2.686 [id number] [facility] 2022-05-26 08:30:00 2022-05-26 08:45:00 Assembly Machine Tool Setter Visit Pob, Adc Lab Main Arden Whitehead [facility] PROFESSIO [facility] BUILD[facility] 1..114 350.1.13.10 4.2.7.2.686 [id number] [facility] 2022-05-26 08:30:00 2022-05-26 08:30:[address] [facility] [facility] [id number] [facility] 2022-05-23 08:30:00 2022-05-23 08:45:00 Routine Visit Arden Whitehead [facility] 1.114 350.1.13.10 4.2.7.2.686 [id number] [facility] 2022-05-23 08:30:00 2022-05-23 08:30:00 Out[address] [facility] [facility] [id number] [facility] 2022-05-23 00:00:2022-05-23 00:00:00 Orders Only Doctor Unassigned, [place] [facility] 1.2840.114 350.1.13.10 4.2.7.2.686 [id number] [facility] 2022-05-18 17:25:00 2022-05-18 18:35:00 Outpatient X WOLF-ORALIA S, LEAH WOLF-ORALIA S, LEAH [facility] [id number] [facility] 2022-05-18 17:25:00 2022-05-18 18:35:00 Emergency Wolf-Oralia s, Leah [facility] 1.2840.114 350.1.13.10 4.2.7.2.686 [id number] [facility] 2022-05-18 00:00:00 2022-05-18 00:00:00 Orders Only Doctor Unassigned, [place] [facility] 1.2840.114 350.1.13.10 4.2.7.2.686 [id number] [facility] 2022-05-16 08:30:00 2022-05-16 08:45:00 Assembly Machine Tool Setter Visit 2, Adc Lab Judy [facility] BUILDING 1..840.114 350.1.13.10 4.2.7.2.686 [id number] [facility] 2022-05-16 08:30:00 2022-05-16 08:30:00 [address] [facility] [facility] [id number] [facility] 2022-05-15 09:45:00 2022-05-15 10:23:45 Outpatient R [address] [facility] [facility] [id number] [facility] 2022-05-15 09:45:00 2022-05-15 10:23:45 Routine Visit Arden Whitehead [facility] 1.2840.114 350.1.13.10 4.2.7.2.686 [id number] [facility] 2022-05-14 09:30:00 2022-05-14 10:15:00 Assembly Machine Tool Setter Visit 1, [facility] Room Kee Calderónsridevi terri Coker [facility] [facility] MATERNAL & [facility] 1..840.114 350.1.13.10 4.2.7.2.686 [id number] [facility] 2022-05-14 09:30:00 2022-05-14 09:30:00 Outpatient P KEE NIALL Terri [facility] [id number] [facility] 2022-05-08 15:00:00 2022-05-08 15:15:00 Routine Visit Arden Whitehead [facility] 1..840.114 350.1.13.10 4.2.7.2.686 [id number] [facility] 2022-05-08 15:00:00 2022-05-08 15:00:00 Out[address] [facility] [facility] [id number] [facility] 2022-05-07 18:36:00 2022-05-08 00:02:00 Outpatient P ARDEN WHITEHEAD [facility] [id number] [facility] 2022-05-07 18:36:00 2022-05-08 00:02:00 Hospital Encounter Arden Whitehead [facility] 1..840.114 350.1.13.10 4.2.7.2.686 [id number] [facility] 2022-04-29 13:30:00 2022-04-29 14:52:58 Outpatient R [facility] [facility] [id number] [facility] 2022-04-29 13:30:00 2022-04-29 14:52:58 Routine Visit Whitehead, Arden Cam [facility] PROFESSIO NAL BUILDING 1.2.840.114 350.1.13.10 4.2.7.2.686 [id number] [facility] 2022-04-16 18:04:00 2022-04-16 21:25:00 Outpatient X ARDEN WHITEHEAD [facility] [id number] [facility] 2022-04-16 18:04:00 2022-04-16 21:25:00 Emergency Arden Whitehead [facility] 1.2.840.114 350.1.13.10 4.2.7.2.686 [id number] [facility] 2022-04-16 00:00:00 2022-04-16 00:00:00 Telephone Arden Whitehead [facility] 1.2.840.114 350.1.13.10 4.2.7.2.686 [id number] [facility] 2022-04-16 00:00:00 2022-04-16 00:00:00 Orders Only Doctor Unassigned, [place] [facility] 1.2.840.114 350.1.13.10 4.2.7.2.686 [id number] [facility] 2022-04-15 00:00:00 2022-04-15 00:00:00 Case Management Aletha Zarate [facility] 1.2.840.114 350.1.13.10 4.2.7.2.686 [id number] [facility] 2022-04-14 13:30:00 2022-04-14 14:11:58 Routine Visit Arden Whitehead [facility] 1.2.840.114 350.1.13.10 4.2.7.2.686 [id number] [facility] 2022-04-14 13:30:00 2022-04-14 14:11:58 Outpatient R [address] [facility] [facility] [id number] [facility] 2022-04-08 17:43:00 2022-04-08 19:53:00 Outpatient X ARDEN WHITEHEAD [facility] [id number] [facility] 2022-04-08 17:43:00 2022-04-08 19:53:00 Emergency Arden Whitehead [facility] 1.20.114 350.1.13.10 4.2.7.2.686 [id number] [facility] 2022-04-08 00:00:00 2022-04-08 00:00:00 Telephone Arden Whitehead [facility] 1.20.114 350.1.13.10 4.2.7.2.686 [id number] [facility] 2022-03-31 14:30:00 2022-03-31 16:00:13 Outpatient R [facility] [facility] [id number] [facility] 2022-03-31 14:30:00 2022-03-31 16:00:13 Initial Visit Arden Whitehead [facility] 1.20.114 350.1.13.10 4.2.7.2.686 [id number] [facility] 2022-03-31 00:00:00 2022-03-31 00:00:00 Orders Only Doctor Unassigned, [place] [facility] 1.2.114 350.1.13.10 4.2.7.2.686 [id number] [facility] 2022-03-17 12:34:00 2022-03-17 15:55:00 Emergency Arden Whitehead [facility] 1.20.114 350.1.13.10 4.2.7.2.686 [id number] [id number] [facility] 2022-03-17 12:34:00 2022-03-17 15:55:00 Outpatient X ARDEN WHITEHEAD [facility] [id number] [facility] 2022-03-17 00:00:00 2022-03-17 00:00:00 Orders Only Doctor Unassigned, [place] [facility] 1.2.840.114 350.1.13.10 4.2.7.2.686 [id number] [facility] Results Test Description Test Time Test Comments Results Result Co mments [facility] Tceby3882-90-33 15:06:45* Test Item Value Reference Range Interpretation Comme [facility] URIC ACID (test code = 9098256925) 4.6 mg/dL 2.9-6.0 Lab Interpretation (test cod e = 48074-5) [facility] Ciwpmxeuuetly4265-24-60 15:06:45* Test Item Value Reference Range Interpretation Comme [facility] LDH (test code = 4728583791) 137 U/L 120-246 Lab Interpretation (test cod e = 60240-0) [facility] Transferase (SGPT)2022-05-28 15:06:44* Test Item Value Reference Range Interpretation Comme [facility] ALTv (test code = 1742-6) 16 U/L 5-35 Lab Interpretation (test cod e = 86015-4) [facility] Qxmzguyblg7444-84-69 15:06:24* Test Item Value Reference Range Interpretation Comme [facility] CREATININE (test code = 7170905903) 0.57 mg/dL 0.50-1.04 eGFR (test code = 6485586081) 129.2 mL/min/1.73m2 JODI (test code = JODI) [...] or urine or abnormalities in imaging tests). [facility] (Asparate Amino Transfer)2022-05-28 15:06:24* Test Item Value Reference Range Interpretation Comme nts AST(SGOT) (test code = 1631155493) 22 U/L 13-40 Lab Interpretation (test cod e = 29964-1) Normal [facility] with Qljhvusqwjng4273-10-59 14:32:58* Test Item Value Reference Range Interpretation [...] 33.7 g/dL 31.6-35.1 RDW-SD (test code = 78350-8) 48.6 fL 39.0-49.9 RDW-CV (test code = 788-0) 13.8 % 12.0-15.5 PLT (test code = 777-3) 197 See_Comment [Automated message] The system which generated this result transmitted reference range: 166 - 358 10*3/?L. The reference range was not used to interpret this result as normal/abnormal. MPV (test code = 43763-3) 11.3 fL 9.5-12.9 NRBC/100 WBC (test code = 5447011653) 0.0 See_Comment [Automated message] The system which generated this result transmitted reference range: 0.0 - 10.0 /100 WBCs. The reference range was not used to interpret this result as normal/abnormal. NRBC x10^3 (test code = 1927695647) See_Comment [Automated message] The system which generated this result transmitted reference range: 10*3/?L. The reference range was not used to interpret this result as normal/abnormal. GRAN MAT (NEUT) % (test code = 770-8) 89.2 % IMM GRAN % (test code = 3001610068) 0.70 % LYMPH % (test code = 736-9) 5.0 % MONO % (test code = 5905-5) 4.8 % EOS % (test code = 713-8) 0.1 % BASO % (test code = 706-2) 0.2 % GRAN MAT x10^3(ANC) (test code = 9331570467) 13.09 10*3/uL 1.88-7.09 H IMM GRAN x10^3 (test code = 8523737529) 0.10 10*3/uL 0.00-0.06 H LYMPH x10^3 (test code = 731-0) 0.74 10*3/uL 1.32-3.29 L MONO x10^3 (test code = 742-7) 0.71 10*3/uL 0.33-0.92 EOS x10^3 (test code = 711-2) 0.03-0.39 L BASO x10^3 (test code = 704-7) 0.03 10*3/uL 0.01-0.07 Lab Interpretation (test code = 81506-6) Abnormal [facility] URINALYSIS W/O SPECIFIC [id number] 18:04:00* Test Item Value Reference Range Interpretation [...] = 3257) n/a Negative - Negati ve [facility] URINALYSIS W/O SPECIFIC [id number] 15:09:00* Test Item Value Reference Range Interpretation [...] = 3257) n/a Negative - Negati ve [facility] URINALYSIS W/O SPECIFIC [id number] 20:10:00* Test Item Value Reference Range Interpretation [...] = 3257) n/a [facility] [id number] 19:02:00* Test Item Value Reference Range Interpretation [...] = 3257) Negative Negative - [facility]ati [facility] SPECIFIC [id number] 19:54:00* Test Item Value Reference Range Interpretation [...] = 3257) n/a Negative - [facility] Screen - ONCE [id number] 01:27:30* Test Item Value Reference Range Interpretation Comme nts ABO & RH (test code = 20) O Positive Performed at [facility] B [facility] Services - [employer] Blood [address] [place] [id number] Free: [phone] No. [id number] IAT (test code = 1185) Negative Performed at [facility] B [facility] - [employer] Blood [id number] [place] [id number] Free: [phone] No. [id number] [facility] SPECIFIC [id number] 21:26:00* Test Item Value Reference Range Interpretation [...] = 3257) n/a Negative - Negati ve [facility]"
[2023-05-01 09:02] LABS: Specific Gravity 1.023 (1.005-1.030)
[2023-05-01 09:04] LABS: Absolute Eosinophils 0.1 K/uL (0-0.5); Absolute Monocytes 0.7 K/uL (0.1-1.3); Absolute Neutrophil 7.4 K/uL (1.8-8.0); Basophils % 0.3 % (0-1.3); Eosinophils % 0.8 % (0-4.4); Hematocrit 40.5 % (36.0-45.0); Hemoglobin 14.2 g/dL (12.0-15.0); Lymphocytes % 10.9 % (15.3-44.8); MCH 33.1 pg (27.0-35.0); MCHC 35.1 g/dL (32.0-36.0); MCV 94.3 fL (80-100); Monocytes % 8.1 % (3.3-12.3); Neutrophils % 79.9 % (41.7-73.7); Platelets 303 thou/uL (152-406); RBC Red Blood Cell Count 4.29 M/uL (3.86-4.86); Red Cell Distribution Width 13.5 % (12.1-15.2)
[2023-05-01 09:09] LABS: Specific Gravity 1.023 (1.005-1.030); Urine Bacteria 20-50 /HPF (<20); Urine Bilirubin NEGATIVE (Negative); Urine Blood Negative (Negative); Urine Clarity Extremely Turbid (Clear); Urine Color Yellow (Yellow); Urine Culture Reflex Order REFLEXED; Urine Glucose NEGATIVE (Negative); Urine Ketones NEGATIVE (Negative); Urine Microscopic Reflex YN ORDER UMIC; Urine Mucus Slight /HPF (None Seen); Urine Nitrite NEGATIVE (Negative); Urine Protein TRACE (Negative); Urine Urobilinogen Normal (Normal)
[2023-05-01 09:18] LABS: Anion Gap 8.8 mEq/L (5.0-15.0); Bilirubin Total 0.6 mg/dL (0.2-1.0); Globulin 4.2 g/dL (2.3-3.5); Potassium 3.8 mEq/L (3.5-5.1); Protein, Total 8.2 g/dL (6.4-8.2)
--- NOTE | 2023-05-01 09:54 | RAD REPORT ---
EXAM DESCRIPTION: CT - Abdomen Pelvis W Contrast - 05/01/2023 9:28 am CLINICAL HISTORY: Abdominal pain COMPARISON: Ultrasound May 01, 2023 TECHNIQUE: Computed axial tomography of the abdomen pelvis was obtained. 100 cc Isovue-300 was admin istered intravenously. Oral contrast was not requested which limits evaluation of bowel and appendix All CT scans are performed using dose optimization technique as appropriate and may include automated exposure control or mA/KV adjustment according to patient size. FINDINGS: The liver, spleen, pancreas, adrenal and kidneys appear unremarkable. There is no evidence of diverticulitis. A 3.5 centimeter low-density mass with a thickened wall right ovary. No significant free fluid IMPRESSION: A 3.5 centimeter low-density mass with a thickened wall right ovary probably a hemorrhag ic cyst. Given the history of endometriosis an endometrioma is a another consideration but probably l ess likely. Follow up ultrasound in a couple of months is recommended for re-evaluation
--- NOTE | 2023-05-01 09:57 | RAD REPORT ---
EXAM DESCRIPTION: US - Transvaginal Study Probe - 05/01/2023 9:28 am CLINICAL HISTORY: Pelvic pain COMPARISON: none FINDINGS: The uterus measures 9 x 4 x 5 cm. A fibroid is not seen. The endometrial stripe measures 1 .2 centimeters Small nabothian cyst within the cervix Left ovary is normal in size and echotexture. A 3.5 centimeter mass is present within the right ovary containing thickened wall and low level echoe s. Blood flow is present to the right ovary The right and left adnexa unremarkable No significant free fluid is seen. IMPRESSION: 3.5 centimeter complex cystic mass right ovary has more of the appearance of a hemorrhag ic cyst than an endometrioma. However, given the history of endometriosis it is recommended that the patient have a followup ultrasound in a couple of months for re-evaluation
--- NOTE | 2023-05-01 10:14 | EDPHYS ---
Physician Documentation [facility] Name: Mike Hernandez Age: 27 yrs Sex: Female : 1995 Arrival Date: 05/01/2023 Time: 08:30 Bed 7 Private MD: ED Physician Shalom Doherty HPI: 04/30 08:47 This 27 yrs old Female presents to ER via Ambulatory with complaints of Abdominal Pain. rn 08:47 The patient presents with abdominal pain in the lower abdomen, right lower quadrant. rn Onset: The symptoms/episode began/occurred 5 day(s) ago. The symptoms do not radiate. Associated signs and symptoms: Pertinent positives: diarrhea, Pertinent negatives: nausea and vomiting, blood in stools, chest pain, constipation, dysuria, fever. The symptoms are described as crampy. Modifying factors: The symptoms are alleviated by nothing, the symptoms are aggravated by movement. Severity of pain: At its worst the pain was moderate in the emergency department the pain is unchanged. The patient has experienced similar episodes in the past. Patient reports lower abdominal pain that began 5 days ago, intermittent, worse with movement and palpation. Associated with diarrhea. Has history of endometriosis and kidney stones, as well as ovarian cysts. States does not feel exactly like either one of those so came in for evaluation. No fever. No vomiting. Denies .. Historical: - Allergies: 08:42 ACYCLOVIR AND DERIVATIVES; iw - PMHx: 08:42 Endometriosis; iw - PSHx: 08:42 Appendectomy; foot sx; iw - Immunization history:: Adult Immunizations up to date. - Family history:: not pertinent. - Social history:: Smoking status: Patient denies any tobacco usage or history of. - Hospitalizations: : No recent hospitalization is reported. ROS: 08:47 Constitutional: Negative for fever, chills, and weight loss, Cardiovascular: Negative rn for chest pain, palpitations, and edema, Respiratory: Negative for shortness of breath, cough, wheezing, and pleuritic chest pain, Abdomen/GI: Positive for abdominal pain and diarrhea Back: Negative for injury and pain, : Negative for injury, bleeding, discharge, and swelling, MS/Extremity: Negative for injury and deformity, Skin: Negative for injury, rash, and discoloration, Neuro: Negative for headache, weakness, numbness, tingling, and seizure, Exam: 08:47 Constitutional: This is a well developed, well nourished patient who is awake, alert, rn and in no acute distress. Cardiovascular: Regular rate and rhythm with a normal S1 and S2. No gallops, murmurs, or rubs. Normal PMI, no JVD. No pulse deficits. Respiratory: Lungs have equal breath sounds bilaterally, clear to auscultation and percussion. No rales, rhonchi or wheezes noted. No increased work of breathing, no retractions or nasal flaring. Abdomen/GI: Soft, tender right lower quadrant and suprapubic region. No rebound. No masses Vital Signs: 08:41 BP 133 / 92; Pulse 94; Resp 16; Temp 97.8(O); Pulse Ox 95% on R/A; Pain 10/10; iw 10:10 BP 111 / 81; Pulse 78; Resp 18; Pulse Ox 99% on R/A; mb9 08:41 Pain Scale: Adult iw MDM: 08:37 Patient medically screened. rn 10:12 Differential diagnosis: appendicitis, bowel obstruction, diverticulitis, Ectopic rn , Endometriosis, non-specific abd pain, Ovarian Torsion, Ureterolithiasis, urinary tract infection. Data reviewed: vital signs, nurses notes, lab test result(s), radiologic studies, CT scan, ultrasound, and as a result, I will discharge patient. Counseling: I had a detailed discussion with the patient and/or guardian regarding the historical points, exam findings, and any diagnostic results supporting the discharge/admit diagnosis, lab results, radiology results, the need for outpatient follow up, to return to the emergency department if symptoms worsen or persist or if there are any questions or concerns that arise at home. Response to treatment: the patient's symptoms have markedly improved after treatment. Special discussion: Based on the patient's Hx, exam, and Dx evaluation, there is no indication for emergent surgery or inpatient Tx. It is understood by the patient/guardian that if the Sx's persist or worsen they need to return immediately for re-evaluation. I discussed with the patient/guardian in detail that at this point there is no indication for admission to the hospital. It is understood, however, that if the symptoms persist or worsen the patient needs to return immediately for re-evaluation. 04/30 08:45 Order name: CBC with Diff; Complete Time: 09:59 rn 04/30 08:45 Order name: CMP; Complete Time: 09:59 rn 04/30 08:45 Order name: Lipase; Complete Time: 09:59 rn 04/30 08:45 Order name: Test, Urine; Complete Time: 09:59 rn 04/30 08:45 Order name: Urinalysis w/ reflexes; Complete Time: 09:59 rn 04/30 09:12 Order name: Urine Culture EDMS 04/30 08:45 Order name: CT Abd/Pelvis - IV Contrast Only; Complete Time: 09:59 rn 04/30 09:12 Order name: Transvaginal Study Probe; Complete Time: 09:59 EDMS 04/30 08:45 Order name: IV Saline Lock; Complete Time: 08:54 rn 04/30 08:45 Order name: Labs collected and sent; Complete Time: 08:54 rn Administered Medications: 08:56 Drug: Ondansetron IVP 4 mg IVP once; over 2 minutes Route: IVP; Site: right antecubital;iw 08:56 Drug: morphine IVP or IV 4 mg IVP once over 4 mins Route: IVP; Infused Over: 4 mins; iw Site: right antecubital; Disposition Summary: 05/01/23 10:14 Discharge Ordered Notes: Location: Home rn Problem: new rn Symptoms: have improved rn Condition: Stable rn Diagnosis - Other and unspecified ovarian cysts - Hemorrhagic rn Followup: rn - With: Private Physician - When: As needed - Reason: Recheck today's complaints, Re-evaluation by your physician Discharge Instructions: - Discharge Summary Sheet rn - Ovarian Cyst rn Forms: - Medication Reconciliation Form rn - Thank You Letter rn - Antibiotic english horn player - Prescription Opioid Use rn - Patient Portal Instructions rn - Leadership Thank You Letter rn - Work release form eb Prescriptions: - Diflucan 150 mg Oral Tablet - take 1 tablet ORAL route one time for 1 day; 1 tablet; Refills: 0, Product rn Selection Permitted - Cipro 500 mg Oral Tablet - take 1 tablet ORAL route every 12 hours for 7 days; 14 tablet; Refills: 0, rn Product Selection Permitted - Diclofenac Sodium 75 mg Oral tablet, delayed release (enteric coated) - take 1 tablet ORAL route 2 times per day As needed; 14 tablet; Refills: 0, rn Product Selection Permitted - Tramadol 50 mg Oral Tablet - take 1 tablet ORAL route every 8 hours as needed; 12 tablet; Refills: 0, rn Product Selection Permitted Signatures: Dispatcher [employer] Leann Salas RN RN iw Nieto, Roman, MD MD rn Baxter, Heather, RN RN Corrections: (The following items were deleted from the chart) 08:49 08:47 Patient reports lower abdominal pain that began 5 days ago, intermittent, worse rn with movement and palpation. Associated with diarrhea. Has history of endometriosis and kidney stones, as well as ovarian cysts. States does not feel exactly like either 1 of those so came in for evaluation. No fever. No vomiting. Denies .. rn 09:12 08:45 Pelvis Complete+US.RAD.BRZ ordered. EDMS EDMS
--- NOTE | 2023-05-01 10:14 | ER ---
Nurse's Notes [facility] Name: Mike Hernandez Age: 27 yrs Sex: Female : 1995 Arrival Date: 05/01/2023 Time: 08:30 Bed 7 Private MD: Diagnosis: Other and unspecified ovarian cysts-Hemorrhagic Presentation: 04/30 08:41 Chief complaint: Patient states: lower abd pain X 5 days, hx of endometriosis. iw Coronavirus screen: At this time, the client does not indicate any symptoms associated with coronavirus-19. Ebola Screen: Patient negative for fever greater than or equal to 101.5 degrees Fahrenheit, and additional compatible Ebola Virus Disease symptoms Patient denies exposure to infectious person. Patient denies travel to an Ebola-affected area in the 21 days before illness onset. No symptoms or risks identified at this time. Initial Sepsis Screen: Does the patient meet any 2 criteria? No. Patient's initial sepsis screen is negative. Does the patient have a suspected source of infection? No. Patient's initial sepsis screen is negative. Risk Assessment: Do you want to hurt yourself or someone else? Patient reports no desire to harm self or others. Onset of symptoms was April 26, 2023. 08:41 Method Of Arrival: Ambulatory iw 08:41 Acuity: KENYA 3 iw Historical: - Allergies: 08:42 ACYCLOVIR AND DERIVATIVES; iw - PMHx: 08:42 Endometriosis; iw - PSHx: 08:42 Appendectomy; foot sx; iw - Immunization history:: Adult Immunizations up to date. - Family history:: not pertinent. - Social history:: Smoking status: Patient denies any tobacco usage or history of. - Hospitalizations: : No recent hospitalization is reported. Screenin:54 [facility] ED Fall Risk Assessment (Adult) History of falling in the last 3 months, hb including since admission No falls in past 3 months (0 pts) Confusion or Disorientation No (0 pts) Intoxicated or Sedated No (0 pts) Impaired Gait No (0 pts) Mobility Assist Device Used No (0 pt) Altered Elimination No (0 pt) Score/Fall Risk Level 0 - 2 = Low Risk Oriented to surroundings, Maintained a safe environment, Educated pt \T\ family on fall prevention, incl call for assistance when getting out of bed. Abuse screen: Denies threats or abuse. Denies injuries from another. Nutritional screening: No deficits noted. Tuberculosis screening: No symptoms or risk factors identified. Assessment: 08:56 General: Appears in no apparent distress. Behavior is calm, cooperative. Pain: iw Complains of pain in suprapubic area Pain currently is 10 out of 10 on a pain scale. Neuro: Level of Consciousness is awake, alert, obeys commands, Oriented to person, place, time, situation, Moves all extremities. Full function. Cardiovascular: Patient's skin is warm and dry. Respiratory: Respiratory effort is even, unlabored, Respiratory pattern is regular, symmetrical. GI: Abd is soft X 4 quads Abdomen is tender to palpation in suprapubic area Reports lower abdominal pain, cramping, nausea. Derm: Skin is intact, is healthy with good turgor. Musculoskeletal: Range of motion: intact in all extremities. 10:09 Reassessment: Patient and/or family updated on plan of care and expected duration. Pain mb9 level reassessed. Patient is alert, oriented x 3, equal unlabored respirations, skin warm/dry/pink. Patient states feeling better. Patient states symptoms have improved. Vital Signs: 08:41 BP 133 / 92; Pulse 94; Resp 16; Temp 97.8(O); Pulse Ox 95% on R/A; Pain 10/10; iw 10:10 BP 111 / 81; Pulse 78; Resp 18; Pulse Ox 99% on R/A; mb9 08:41 Pain Scale: Adult iw ED Course: 08:33 Patient arrived in ED. rg4 08:36 Shalom Doherty MD is Attending Physician. rn 08:41 Leann Lui RN is Primary Nurse. iw 08:42 Triage completed. iw 08:42 Arm band placed on. iw 08:53 Inserted saline lock: 20 gauge in right antecubital area, using aseptic technique. iw Blood collected. 08:54 CBC with Diff Sent. hb 08:54 CMP Sent. hb 08:54 Lipase Sent. hb 08:54 Test, Urine Sent. hb 08:54 Urinalysis w/ reflexes Sent. hb 08:54 Initial lab(s) drawn, by ED staff, sent to lab. Patient maintains SpO2 saturation hb greater than 95% on room air. 08:[address] via wheelchair. hb 08:55 Patient has correct armband on for positive identification. Provided Education on: hb tests, result times. Client placed on continuous cardiac and pulse oximetry monitoring. NIBP monitoring applied. Pulse ox on. NIBP on. 09:29 CT Abd/Pelvis - IV Contrast Only In Process Unspecified. EDMS 09:30 Transvaginal Study Probe In Process Unspecified. EDMS 10:09 No provider procedures requiring assistance completed. mb9 10:17 IV discontinued, intact, bleeding controlled, No redness/swelling at site. Pressure mb9 dressing applied. Administered Medications: 08:56 Drug: Ondansetron IVP 4 mg IVP once; over 2 minutes Route: IVP; Site: right antecubital;iw 08:56 Drug: morphine IVP or IV 4 mg IVP once over 4 mins Route: IVP; Infused Over: 4 mins; iw Site: right antecubital; Medication: 08:56 VIS not applicable for this client. hb Outcome: 10:14 Discharge ordered by . rn 10:17 Discharged to home ambulatory, mb9 10:17 Condition: stable 10:17 Discharge instructions given to patient, Instructed on discharge instructions, follow up and referral plans. Demonstrated understanding of instructions, follow-up care, medications, Prescriptions given X 4, 10:22 Patient left the ED. mb9 Signatures: Dispatcher [employer] Leann Salas RN RN iw Shalom Doherty MD MD rn Baxter, Heather, RN RN hb Garcia, Rubi 4 Michelle Umaznor RN RN mb9 Corrections: (The following items were deleted from the chart) 08:56 08:41 BP 133 / 92; Pulse 94bpm; Resp 16bpm; Pulse Ox 95% RA; iw iw
[2023-05-01 11:01] VITALS: BP 111/81; TEMP 97.8; O2SAT 99
== END ==
LOC: ER 08:30
DX: N83.201 Unspecified ovarian cyst, right side (principal)
CPT/HCPCS: 36415; 74177; 76830; 80053; 81001; 81025; 83690; 85025; 87086; 87088; 96374; 96375; 99285; J2405; Q9967

== ENCOUNTER 2023-10-13 18:25 | Emergency (ER) | payer SELFPAY ==
--- NOTE | 2023-10-13 18:33 | EDPHYS ---
Physician Documentation [facility] Name: Mike Hernandez Age: 27 yrs Sex: Female : 1995 Arrival Date: 10/13/2023 Time: 18:25 Bed 12 Private MD: ED Physician Christian Oviedo HPI: 10/12 18:31 This 27 yrs old Female presents to ER via Ambulatory with complaints of Headache, kb Dental Injury. 18:32 Pt is a 27 year old female who presents for toothache on left side that started 5 days kb to a week ago. States now the pain has radiated to left side of head. Eating increases pain. Denies fever. States she knows she has a tooth on that side that she needs to have pulled. . Historical: - Allergies: 18:30 Adhesives; db 18:30 ACYCLOVIR AND DERIVATIVES; db - PMHx: 18:30 Endometriosis; db - PSHx: 18:30 Appendectomy; foot sx; db - Immunization history:: Adult Immunizations unknown. - Infectious Disease History:: Denies. - Social history:: Smoking status: Patient denies any tobacco usage or history of. ROS: 18:31 Constitutional: As per HPI kb Exam: 18:31 Constitutional: This is a well developed, well nourished patient who is awake, alert, kb and in no acute distress. Head/Face: Normocephalic, atraumatic. Cardiovascular: Regular rate Respiratory: Respirations even and unlabored. No increased work of breathing. Talking in full sentences Skin: Warm, dry with normal turgor. Normal color. MS/ Extremity: Pulses equal, no cyanosis. Neurovascular intact. Full, normal range of motion. Neuro: Awake and alert, GCS 15, oriented to person, place, time, and situation. Moves all extremities. Normal gait. 18:31 ENT: Dental exam: dental caries, gum swelling, pain, that is moderate, specifically in the upper left second molar (#15), Vital Signs: 18:29 BP 134 / 93; Pulse 98; Resp 16; Temp 98; Pulse Ox 99% ; Weight 99.79 kg; Height 5 ft. 2 db in. ; Pain 10/10; 18:29 Body Mass Index 40.24 (99.79 kg, 157.48 cm) db 18:29 Pain Scale: Adult db Cristin Coma Score: 18:31 Eye Response: spontaneous(4). Motor Response: obeys commands(6). Verbal Response: kb oriented(5). Total: 15. MDM: 18:27 Patient medically screened. kb 18:31 Data reviewed: vital signs, nurses notes. kb 18:31 Differential diagnosis: dental caries, gingivitis, dental abscess, pericoronitis. kb Counseling: I had a detailed discussion with the patient and/or guardian regarding the historical points, exam findings, and any diagnostic results supporting the discharge/admit diagnosis, the need for outpatient follow up, a dentist, to return to the emergency department if symptoms worsen or persist or if there are any questions or concerns that arise at home. Administered Medications: 18:40 Drug: Ketorolac IM 30 mg IM once Route: IM; Site: right deltoid; db 19:05 Follow up: Response: No adverse reaction iw 18:40 Drug: Amoxicillin-Clavulanate PO 875 mg PO once Route: PO; db 19:05 Follow up: Response: No adverse reaction iw Disposition: 20:02 Co-signature as Attending Physician, Christian Oviedo MD I reviewed the patient's care rt provided by the Advanced Practice Provider and agree with the diagnosis and treatment plan. Disposition Summary: 10/13/23 18:33 Discharge Ordered Notes: Location: Home kb Condition: Stable kb Diagnosis - Dental caries, unspecified - pain kb Followup: kb - With: Emergency Department - When: As needed - Reason: Worsening of condition Followup: kb - With: Private Physician - When: 2 - 3 days - Reason: Recheck today's complaints, Continuance of care, Re-evaluation by your physician Discharge Instructions: - Discharge Summary Sheet kb - Dental Pain, [id number] kb - Dental Caries, Adult, [id number] kb Forms: - Medication Reconciliation Form kb - Antibiotic Education kb - Prescription Opioid Use kb - Patient Portal Instructions kb - Leadership Thank You Letter kb Prescriptions: - Augmentin 875-125 mg Oral Tablet - take 1 tablet ORAL route every 12 hours for 10 days; 20 tablet; Refills: 0, kb Product Selection Permitted - Diclofenac Sodium 75 mg Oral tablet, delayed release (enteric coated) - take 1 tablet ORAL route 2 times per day As needed; 30 tablet; Refills: 0, kb Product Selection Permitted Signatures: Viry Ramon FNP-C FNP-Faith Miroslava Engle, RN RN db Christian Oviedo MD MD rt Leann Lui RN iw Corrections: (The following items were deleted from the chart) 18:32 18:31 Counseling: I had a detailed discussion with the patient and/or guardian luciana regarding the historical points, exam findings, and any diagnostic results supporting the discharge/admit diagnosis, the need for outpatient follow up, a family practitioner, to return to the emergency department if symptoms worsen or persist or if there are any questions or concerns that arise at home, luciana
--- NOTE | 2023-10-13 18:33 | ER ---
Nurse's Notes [facility] Name: Mike Hernandez Age: 27 yrs Sex: Female : 1995 Arrival Date: 10/13/2023 Time: 18:25 Bed 12 Private MD: Diagnosis: Dental caries, unspecified-pain Presentation: 10/12 18:29 Chief complaint: Patient states: HEADACHE, LEFT FACE, LEFT DENTAL PAIN SINCE THURSDAY db 8. Coronavirus screen: Client denies travel out of the [place] in the last 14 days. At this time, the client does not indicate any symptoms associated with coronavirus-19. Ebola Screen: Patient negative for fever greater than or equal to 101.5 degrees Fahrenheit, and additional compatible Ebola Virus Disease symptoms Patient denies exposure to infectious person. Patient denies travel to an Ebola-affected area in the 21 days before illness onset. No symptoms or risks identified at this time. Initial Sepsis Screen: Does the patient meet any 2 criteria? No. Patient's initial sepsis screen is negative. Does the patient have a suspected source of infection? No. Patient's initial sepsis screen is negative. Risk Assessment: Do you want to hurt yourself or someone else? Patient reports no desire to harm self or others. Onset of symptoms was October 13, 2023. 18:29 Acuity: KENYA 4 db 18:29 Method Of Arrival: Ambulatory db Triage Assessment: 18:30 Headache History: The patient has had previous headaches and this one is similar to db previous episodes. General: Appears in no apparent distress. uncomfortable, Behavior is calm, cooperative. Pain: Complains of pain in mouth. Pain: Pain currently is 10 out of 10 on a pain scale. Pain began gradually, Also complains of no other associated symptoms. Neuro: Level of Consciousness is awake, alert, obeys commands, Oriented to person, place. Historical: - Allergies: 18:30 Adhesives; db 18:30 ACYCLOVIR AND DERIVATIVES; db - PMHx: 18:30 Endometriosis; db - PSHx: 18:30 Appendectomy; foot sx; db - Immunization history:: Adult Immunizations unknown. - Infectious Disease History:: Denies. - Social history:: Smoking status: Patient denies any tobacco usage or history of. Screenin:56 [facility] ED Fall Risk Assessment (Adult) History of falling in the last 3 months, db including since admission No falls in past 3 months (0 pts) Confusion or Disorientation No (0 pts) Intoxicated or Sedated No (0 pts) Impaired Gait No (0 pts) Mobility Assist Device Used No (0 pt) Altered Elimination No (0 pt) Score/Fall Risk Level 0 - 2 = Low Risk Oriented to surroundings, Maintained a safe environment. Abuse screen: Denies threats or abuse. Denies injuries from another. Nutritional screening: No deficits noted. Tuberculosis screening: No symptoms or risk factors identified. Assessment: 18:56 Reassessment: Patient appears in no apparent distress at this time. Patient and/or db family updated on plan of care and expected duration. Pain level reassessed. General: Appears in no apparent distress. comfortable. Pain: Complains of pain in head and mouth. Vital Signs: 18:29 BP 134 / 93; Pulse 98; Resp 16; Temp 98; Pulse Ox 99% ; Weight 99.79 kg; Height 5 ft. 2 db in. ; Pain 10/10; 18:29 Body Mass Index 40.24 (99.79 kg, 157.48 cm) db 18:29 Pain Scale: Adult db Cristin Coma Score: 18:31 Eye Response: spontaneous(4). Motor Response: obeys commands(6). Verbal Response: kb oriented(5). Total: 15. ED Course: 18:27 Patient arrived in ED. im 18:27 [facility] Ramon FNP-C [facility] kb 18:27 Christian Oviedo MD is Attending Physician. kb 18:30 Triage completed. db 18:30 Arm band placed on Patient placed in an exam room. db 18:56 Patient has correct armband on for positive identification. Call light in reach. Side db rails up X 1. Provided Education on: DISCHARGE. 18:56 No provider procedures requiring assistance completed. Patient did not have IV access db during this emergency room visit. Administered Medications: 18:40 Drug: Ketorolac IM 30 mg IM once Route: IM; Site: right deltoid; db 19:05 Follow up: Response: No adverse reaction iw 18:40 Drug: Amoxicillin-Clavulanate PO 875 mg PO once Route: PO; db 19:05 Follow up: Response: No adverse reaction iw Medication: 18:56 VIS not applicable for this client. db Outcome: 18:33 Discharge ordered by MD. chowdhury 18:56 Discharged to home ambulatory, db 18:56 Condition: stable 18:56 Discharge instructions given to patient, Instructed on discharge instructions, follow up and referral plans. Prescriptions given X 2, 19:05 Patient left the ED. iw Signatures: Viry Ramon, DIRECTOR DIETETICS DEPARTMENT-C DIRECTOR DIETETICS DEPARTMENT-Leann Rodriguez RN SILVERIO iw Miroslava Engle RN RN db Mendoza, Itzel im Corrections: (The following items were deleted from the chart) 18:32 18:29 Chief complaint: Patient states: HEADACHE, LEFT FACE, LEFT DENTAL PAIN db db 18:32 18:29 BP 134 / 93; Pulse 98bpm; Resp 16bpm; Pulse Ox 99%; Temp 98F; db db
[2023-10-13] MEDS ORDERED: AMOX/K CLAV 875 MG TAB ONE (18:47)
[2023-10-13] MEDS ORDERED: KETOROLAC 30 MG/ML INJ ONE (18:47)
[2023-10-13 19:10] VITALS: BP 134/93; TEMP 98; O2SAT 99
== END 2023-10-13 19:05 | disposition home or self-care (01) ==
LOC: ER 18:25
DX: K02.9 Dental caries, unspecified (principal)
CPT/HCPCS: 96372; 99284

== ENCOUNTER 2024-01-17 15:07 | Emergency (ER) | payer SELFPAY ==
--- NOTE | 2024-01-17 16:38 | ER ---
Nurse's Notes [facility] Name: Mike Hernandez Age: 28 yrs Sex: Female : 1995 Arrival Date: 01/17/2024 Time: 15:07 Bed Waiting Private MD: Diagnosis: ED Course: 01/16 15:09 Patient arrived in ED. ra3 15:56 Patient's name was called from ER lobby. No response. aa5 16:08 Patient's name was called from ER lobby. No response. aa5 16:38 Patient's name was called from ER lobby. No response. Unable to locate patient. Will aa5 disposition as left without being seen by a provider. Administered Medications: No medications were administered Outcome: 16:38 Patient left the ED. aa5 Signatures: Leyla Roy RN RN aa5 Irene Tomas ra3
== END 2024-01-17 16:38 | disposition left against medical advice (07) ==
LOC: ER 15:07
DX: Z02.9 Encounter for administrative examinations, unspecified (principal)

== ENCOUNTER 2024-02-13 17:45 | Emergency (ER) | payer OTHER, SELFPAY ==
[2024-02-13] MEDS ORDERED: ACETAMINOPHEN 500 MG TAB ONE (18:26)
[2024-02-13] MEDS ORDERED: CYCLOBENZAPRINE 10 MG TAB ONE (18:27)
[2024-02-13] MEDS ORDERED: KETOROLAC 30 MG/ML INJ ONE (18:27)
[2024-02-13] MEDS ORDERED: LIDOCAINE 4% PATCH ONE (18:27)
[2024-02-13 18:50] LABS: Specific Gravity 1.024 (1.005-1.030)
--- NOTE | 2024-02-13 19:12 | RAD REPORT ---
EXAMINATION: CT LUMBAR SPINE WITHOUT CONTRAST CLINICAL INDICATION: Female, 28 years old. Pain;Lower back pain TECHNIQUE: Axial CT images were obtained through the lumbar spine in soft tissue and bone windows wit hout intravenous contrast. Coronal and Sagittal reformatted images were created from the data set. One or more of the following dose reduction techniques were used: Automated exposure control, adjustm ent of the mA and/ or kV according to patient size, and/or iterative reconstruction. Unless otherwise specified, incidental findings do not require dedicated imaging follow-up. COMPARISON: No prior exam. FINDINGS: For purposes of this dictation, it is assumed that there are 5 non rib-bearing lumbar type vertebrae, and the most caudal fully segmented lumbar vertebra is labeled L5. ALIGNMENT: The lumbar spine demonstrates normal alignment without scoliosis or spondylolisthesis. BONES: No significant soft tissue abnormalities. No aggressive osseous lesions. DISCS: Intervertebral disc space heights are maintained. LEVELS: Mild posterior disc bulges lower lumbar spine. SOFT TISSUE: Punctate calyceal calculi both kidneys. IMPRESSION: No acute lumbar spine abnormalities. Mild lower lumbar posterior disc bulging.
--- NOTE | 2024-02-13 19:15 | EDPHYS ---
Physician Documentation [facility] Name: Mike Hernandez Age: 28 yrs Sex: Female : 1995 Arrival Date: 02/13/2024 Time: 17:45 Bed 13 Private MD: ED Physician Abraham Vela HPI: 02/12 17:54 This 28 yrs old Female presents to ER via Unassigned with complaints of Fall ec2 Injury. 17:58 Patient arrives today for evaluation after a fall downstairs. Fell and landed on her ec2 buttock and complaint of low back pain. No LOC, no head strike, no neck pain.. 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 - Infectious Disease History:: Denies. - Social history:: Smoking status: Patient denies any tobacco usage or history of. ROS: 17:58 Constitutional: as per hpi ec2 Exam: 17:58 Constitutional: GEN: NAD Head: atraumatic Eyes: EOMI Ears: External ears are ec2 normal. CV: regular rate LUNGS: no respiratory distress ABD: non-distended SKIN: no evidence of rashes MSK: No C or T spine deformities or crepitus or step-offs. L-spine TTP without deformities or crepitus. Vital Signs: 18:12 BP 127 / 77; Pulse 80; Resp 17; Temp 98; Pulse Ox 99% on R/A; rs5 19:00 BP 126 / 79; Pulse 71; Resp 18; Pulse Ox 100% on R/A; kj2 MDM: 17:48 Medical Screening Exam initiated jh7 17:58 Data reviewed: vital signs, nurses notes. ED course: Patient arrives today for ec2 evaluation after fall on stairs. Examination yields MSK findings as above. Will obtain CT of the L-spine, urine test. Differential includes contusion, fracture, doubt dislocation. Additionally doubt spinal cord pathology given lack of red flag symptoms will treat the patient pain in the interim.. 02/12 17:53 Order name: Test, Urine; Complete Time: 18:51 ec2 02/12 17:53 Order name: CT Lumbar Spine Wo Con; Complete Time: 19:13 ec2 Administered Medications: 18:20 Drug: Lidoderm Topical Patch 5 % (700 mg/patch) 1 patches Topical once; leave on for 12 rs5 hours; cover most painful area; may cut into smaller pieces {Note: lower back.} Route: Topical; Site: affected area; 19:27 Follow up: Response: No adverse reaction kj2 18:20 Drug: Ketorolac IM 30 mg IM once Route: IM; Site: left deltoid; rs5 19:27 Follow up: Response: No adverse reaction kj2 18:20 Drug: Acetaminophen PO 1000 mg PO once Route: PO; rs5 19:27 Follow up: Response: No adverse reaction kj2 18:20 Drug: Cyclobenzaprine PO 10 mg PO once Route: PO; rs5 19:27 Follow up: Response: No adverse reaction kj2 Disposition Summary: 02/13/24 19:14 Discharge Ordered Notes: Location: Home [facility] Condition: Stable [facility] Diagnosis - Low back pain [facility] Followup: ec2 - With: Private Physician - When: - Reason: Recheck today's complaints Discharge Instructions: - Discharge Summary Sheet ec2 - Acute Back Pain, Adult ec2 Forms: - Medication Reconciliation Form [facility] - Antibiotic Education [facility] - Prescription Opioid Use [facility] - Patient Portal Instructions [facility] - Leadership Thank You Letter [facility] Prescriptions: - Cyclobenzaprine 5 mg Oral Tablet - take 1 tablet ORAL route 3 times per day As needed; 15 tablet; Refills: 0, ec2 Product Selection Permitted Signatures: Dispatcher [employer] EDXena Lennon FNP SLASHER RUNNER 7 Kenn Sim RN RN rs5 Abraham Vela MD MD ec2 Brissa Mayorga RN kj2 Corrections: (The following items were deleted from the chart) 17:54 17:54 Test, Urine+UC.LAB.BRZ ordered. EDMS EDMS 17:54 17:54 Spine Lumbar Wo Con+CT.RAD.BRZ ordered. EDMS EDMS
--- NOTE | 2024-02-13 19:15 | ER ---
Nurse's Notes [facility] Name: Mike Hernandez Age: 28 yrs Sex: Female : 1995 Arrival Date: 02/13/2024 Time: 17:45 Bed 13 Private MD: Diagnosis: Low back pain Presentation: 02/12 18:12 Chief complaint: Patient states: slipped and fell walking down step, landed on lower rs5 back. Complains of pain to lower back and tingling to right arm. 18:12 Coronavirus screen: At this time, the client does not indicate any symptoms associated rs5 with coronavirus-19. Ebola Screen: No symptoms or risks identified at this time. Initial Sepsis Screen: Does the patient meet any 2 criteria? No. Patient's initial sepsis screen is negative. Does the patient have a suspected source of infection? No. Patient's initial sepsis screen is negative. Risk Assessment: Do you want to hurt yourself or someone else? Patient reports no desire to harm self or others. Onset of symptoms was February 13, 2024. 18:12 Method Of Arrival: Ambulatory rs5 18:12 Acuity: KENYA 3 rs5 Triage Assessment: 18:15 General: Appears in no apparent distress. uncomfortable, Behavior is calm, cooperative. rs5 Pain: Complains of pain in lower back. 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 - Infectious Disease History:: Denies. - Social history:: Smoking status: Patient denies any tobacco usage or history of. Screenin:19 [facility] ED Fall Risk Assessment (Adult) History of falling in the last 3 months, kj2 including since admission Yes- single mechanical fall (1 pt) Confusion or Disorientation No (0 pts) Intoxicated or Sedated No (0 pts) Impaired Gait No (0 pts) Mobility Assist Device Used No (0 pt) Altered Elimination No (0 pt) Score/Fall Risk Level 0 - 2 = Low Risk Maintained a safe environment, Hourly rounding (assess needs \T\ fall precautionary measures) done. Abuse screen: Denies threats or abuse. Denies injuries from another. Nutritional screening: No deficits noted. Tuberculosis screening: No symptoms or risk factors identified. Assessment: 18:15 General: Appears in no apparent distress. uncomfortable, Behavior is calm, cooperative. rs5 Pain: Complains of pain in lower back Pain currently is 8 out of 10 on a pain scale. Quality of pain is described as aching, Is continuous. Neuro: Level of Consciousness is awake, alert, obeys commands, Oriented to person, place, time, situation. Cardiovascular: Patient's skin is warm and dry. Respiratory: Airway is patent Respiratory effort is even, unlabored, Respiratory pattern is regular, symmetrical. GI: Abdomen is round non-distended, Abd is soft and non tender X 4 quads. : No signs and/or symptoms were reported regarding the genitourinary system. EENT: No signs and/or symptoms were reported regarding the EENT system. Derm: Skin is intact, Skin is pink, warm \T\ dry. Musculoskeletal: Range of motion: intact in all extremities. 19:00 Reassessment: Patient appears in no apparent distress at this time. Patient and/or kj2 family updated on plan of care and expected duration. Pain level reassessed. Patient is alert, oriented x 3, equal unlabored respirations, skin warm/dry/pink. 19:04 Reassessment: Patient and/or family updated on plan of care and expected duration. Pain rs5 level reassessed. Patient is alert, oriented x 3, equal unlabored respirations, skin warm/dry/pink. Vital Signs: 18:12 BP 127 / 77; Pulse 80; Resp 17; Temp 98; Pulse Ox 99% on R/A; rs5 19:00 BP 126 / 79; Pulse 71; Resp 18; Pulse Ox 100% on R/A; kj2 ED Course: 17:47 Patient arrived in ED. sj2 17:48 Xena Logan FNP [facility] jh7 17:48 Abraham Vela MD is Attending Physician. jh7 18:57 Brissa Mayorga, SILVERIO is Primary Nurse. kj2 18:58 Triage completed. rs5 19:00 Patient has correct armband on for positive identification. Bed in low position. Call kj2 light in reach. Provided Education on: call light. Report received from SILVERIO Hawk. 19:03 CT Lumbar Spine Wo Con In Process Unspecified. EDMS 19:06 X[facility] Logan [facility] 19:20 No provider procedures requiring assistance completed. kj2 19:21 Patient notified of wait time. kj2 19:21 Patient did not have IV access during this emergency room visit. kj2 Administered Medications: 18:20 Drug: Lidoderm Topical Patch 5 % (700 mg/patch) 1 patches Topical once; leave on for 12 rs5 hours; cover most painful area; may cut into smaller pieces {Note: lower back.} Route: Topical; Site: affected area; 19:27 Follow up: Response: No adverse reaction kj2 18:20 Drug: Ketorolac IM 30 mg IM once Route: IM; Site: left deltoid; rs5 19:27 Follow up: Response: No adverse reaction kj2 18:20 Drug: Acetaminophen PO 1000 mg PO once Route: PO; rs5 19:27 Follow up: Response: No adverse reaction kj2 18:20 Drug: Cyclobenzaprine PO 10 mg PO once Route: PO; rs5 19:27 Follow up: Response: No adverse reaction kj2 Medication: 19:20 VIS not applicable for this client. kj2 Outcome: 19:14 Discharge ordered by . 7 19:20 Discharged to home ambulatory, kj2 19:20 Condition: stable 19:20 Discharge instructions given to patient, Instructed on discharge instructions, follow kj2 up and referral plans. medication usage, Demonstrated understanding of instructions, follow-up care, medications, Prescriptions given X 1, 19:28 Patient left the ED. kj2 Signatures: Dispatcher [employer] [facility] Xena Logan FNP [place] [id number] Kenn Sim, RN RN rs5 Brissa Mayorga RN RN kj2 [facility]
[2024-02-13 19:37] VITALS: TEMP 98
[2024-02-13 19:38] VITALS: BP 126/79; O2SAT 100
== END 2024-02-13 19:28 | disposition home or self-care (01) ==
LOC: ER 17:45
DX: M54.50 Low back pain, unspecified (principal)
CPT/HCPCS: 81025; 72131; 96372; 99284; J2003